=== PATIENT | male | born 1940 | race Caucasian/White ===

== ENCOUNTER 2017-06-23 21:33 | Observation (INO) | payer MEDICARE, BC ==
[2017-06-23] MEDS ORDERED: NS 0.9% 1000 ML* 1,000 ML IV ONE (23:46)
[2017-06-24 00:27] LABS: ABS Basophils 0.1 10^3/ul (0-0.2); ABS Eosinophils 0.3 10^3/ul (0-0.6); ABS Lymphocytes 1.9 10^3/ul (1.0-4.8); ABS Monocytes 0.8 10^3/ul (0-0.8); ABS Neutrophils 6.2 10^3/ul (1.5-7.7); ABS Nucleated RBC 0 10^3/ul; Eosinophil % 3.2 % (0-6); Hematocrit 38 % (42-52); Hemoglobin 13.2 g/dl (14.0-18.0); Lymphocyte % 20.3 % (25-47); Mean Corpuscular HGB Conc 35 g/dl (31-36); Mean Corpuscular Hemoglobin 34 pg (27-31); Mean Corpuscular Volume 98 fL (80-94); Mean Platelet Volume 9 um3 (7.4-10.4); Nucleated Red Blood Cells % 0; Platelet Count 200 10^3/ul (150-450); Red Blood Count 3.88 10^6/ul (4.0-5.4); Red Cell Distribution Width 13 % (10.5-15); White Blood Count 9.3 10^3/ul (3.5-10.8)
[2017-06-24 00:29] LABS: EGFR Non-African American 74.4 (>60)
[2017-06-24 00:43] LABS: INR 0.93 (0.77-1.02)
[2017-06-24] MEDS ORDERED: Acetaminophen TAB* 325 MG PO PRN (00:51)
[2017-06-24] MEDS ORDERED: CMCS: Melatonin (NF) 3 MG TAB PO PRN (00:52)
[2017-06-24] MEDS ORDERED: Ondansetron INJ* 2 MG/ML VIAL IV PRN (00:52)
[2017-06-24] MEDS ORDERED: NS 0.9% 1000 ML* 1,000 ML IV SCH (01:00)
--- NOTE | 2017-06-24 01:28 | ED ---
Robby James Nikita, scribed for Yanci Armenta MD on 06/23/17 at 2312 . GI/ HPI - HPI Summary HPI Summary: This patient is a 76 year old M presenting to ED with a chief complaint of rectal bleeding since 1600 today. The CC is described as a small amount of blood , and red and black clots with and without bowel movement. The patient rates the pain 0/10 in severity. Symptoms aggravated by nothing. Symptoms alleviated by nothing. Patient reports dizziness and abdominal pain (2 days ago, resolved after bowel movement). Patient denies LOC. Pt has taken 2 Ibuprofen today. PMHx of GI bleed (10 years ago). - History of Current Complaint Chief Complaint: EDGIBleed Time Seen by Provider: 06/23/17 23:08 Stated Complaint: RECTAL BLEED Hx Obtained From: Patient Onset/Duration: Started Hours Ago Timing: Intermittent Current Severity: None Vaginal Bleeding Description: Clots - black and red Pain Intensity: 0 Associated Signs and Symptoms: Positive: Other: - Patient reports dizziness and abdominal pain (2 days ago, resolved after bowel movement). Patient denies LOC. - Allergy/Home Medications Allergies/Adverse Reactions: Allergies Allergy/AdvReac Type Severity Reaction Status Date / Time No Known Allergies Allergy Verified 06/23/17 21:43 PMH/Surg Hx/FS Hx/Imm Hx Cardiovascular History: Reports: Hx Hypertension GI History: Reports: Hx Diverticulosis, Hx Gastrointestinal Bleed, Other GI Disorders - hemorrhoids Musculoskeletal History: Reports: Hx Arthritis, Hx Rheumatoid Arthritis Sensory History: Reports: Hx Contacts or Glasses, Hx Hearing Aid Opthamlomology History: Reports: Hx Contacts or Glasses - Surgical History Surgery Procedure, Year, and Place: bilateral arthroscopic surgery to bilateral knees Infectious Disease History: No Infectious Disease History: Reports: Hx Clostridium Difficile Denies: Traveled Outside the [place] in Last 30 Days - Family History Known Family History: Positive: Cardiac Disease, Diabetes, Other Family History: colon CA - Social History Alcohol Use: None Alcohol Amount: 2-5 drinks daily Substance Use Type: Reports: None Smoking Status (MU): Never Smoked Tobacco Review of Systems Positive: Abdominal Pain - resolved after BM, Other - rectal bleeding at 1600 today (small amount) Neurological: Other - dizziness; denies LOC All Other Systems Reviewed And Are Negative: Yes Physical Exam - Summary Physical Exam Summary: VITAL SIGNS: Reviewed. GENERAL: ~Patient is a well-developed and nourished MALE who is lying comfortable in the stretcher. Patient is not in any acute respiratory distress. HEAD AND FACE: No signs of trauma. No ecchymosis, hematomas or skull depressions. No sinus tenderness. EYES: PERRLA, EOMI x 2, No injected conjunctiva, no nystagmus. EARS: Hearing grossly intact. Ear canals and tympanic membranes are within normal limits. MOUTH: Oropharynx within normal limits. NECK: Supple, trachea is midline, no adenopathy, no JVD, no carotid bruit, no c- spine tenderness, neck with full ROM. CHEST: Symmetric, no tenderness at palpation LUNGS: Clear to auscultation bilaterally. No wheezing or crackles. CVS: Regular rate and rhythm, S1 and S2 present, no murmurs or gallops appreciated. ABDOMEN: Soft, non-tender. No signs of distention. No rebound no guarding, and no masses palpated. Bowel sounds are normal. EXTREMITIES: FROM in all major joints, no edema, no cyanosis or clubbing. NEURO: Alert and oriented x 3. No acute neurological deficits. Speech is normal and follows commands. SKIN: Dry and warm Rectal exam: Maroon colored blood on the finger on rectal exam; No active bleeding Triage Information Reviewed: Yes Vital Signs On Initial Exam: Initial Vitals Temp Pulse Resp BP Pulse Ox 97.9 F 83 16 186/106 97 06/23/17 21:39 06/23/17 21:39 06/23/17 21:39 06/23/17 21:39 06/23/17 21:39 Vital Signs Reviewed: Yes Diagnostics - Vital Signs Vital Signs Temp Pulse Resp BP Pulse Ox 06/23/17 21:39 97.9 F 83 16 186/106 97 - Laboratory Result Diagrams: 06/24/17 00:04 06/24/17 00:04 Lab Statement: Any lab studies that have been ordered have been reviewed, and results considered in the medical decision making process. - EKG 2351 Cardiac Rate: NL EKG Rhythm: Sinus Rhythm - 69 bpm EKG Interpretation: non-specific T wave changes in the inferior leads GIGU Course/Dx - Course Assessment/Plan: This patient is a 76 year old M presenting to ED with a chief complaint of rectal bleeding since 1600 today. The CC is described as a small amount of blood, and red and black clots with and without bowel movement. Pt is hemodynamically stable. Discussed pt with Dr. Santos at 0048 who accepts pt for admission. Pt will be admitted. Pt is agreeable with this plan. - Diagnoses Differential Diagnoses - Male: Other - lower GI bleed Provider Diagnoses: Lower GI bleed - Physician Notifications Discussed Care Of Patient With: Jroge Santos Time Discussed With Above Provider: 00:48 Instructed by Provider To: Other - Discussed about pt with Dr. Santos who accepts pt for admission. Discharge - Discharge Plan Condition: Stable Disposition: ADMITTED TO [facility] The documentation as recorded by the Robby reich Nikita accurately reflects the service I personally performed and the decisions made by me, Yanci Armenta MD.
--- NOTE | 2017-06-24 01:58 | HP ---
H&P (Free Text) History and Physical: PCP: Joy Ramirez MD Date/Time: 06/24/2017 0045 CC: blood per rectum HPI: Mr Barajas is a 76YO male HX lower GI bleed, diverticulosis, & RA who around 1600 yesterday passed gas and felt a 'trickle' in his underpants which turned out to be bright red blood. He had 3 bloody bowel movements at home and decided to come in for evaluation. While in ED had 5 more morenita bloody movements and 2 more since arriving to the floor. He denies F/C, sweats, abdominal pain, chest pain, SOB, palpitations, generalized weakness, or other issues. While he reports some dizziness prior to onset, there has been none associated. Last colonoscopy was 2008. PMedHx rheumatoid arthritis C difficile colitis lower GI bleed HTN HLD [place]'s disease BPH diverticulosis hard of hearing Medications Nursing to reconcile. Allergies No Known Allergies Allergy (Verified 06/23/17 21:43) PSurgHx tonsillectomy plastic surgery to R ear R knee arthroscopy SocHx: no tobacco, 1-2 alcoholic drinks daily, no recreational drugs; lives with his ; FamHx: positive for COPD, CAD, DM, & colon CA ROS: as above, otherwise reviewed and all were negative vitals: Vital Signs Temp 36.7 C 06/24/17 03:37 Pulse 59 06/24/17 03:37 Resp 18 06/24/17 03:37 BP 155/82 06/24/17 03:37 Pulse Ox 96 06/24/17 03:37 Intake & Output 06/23/17 06/23/17 06/24/17 11:59 23:59 11:59 Intake Total 1000 Balance 1000 Weight 90.718 kg 91.898 kg Intake: IV Fluids 1000 Constitutional: NAD, normally developed, overweight elderly white male HEENM: atraumatic; sclera/conjunctiva: anicteric/clear; hearing: markedly hard- of-hearing, wears aides AU; oropharynx: clear, mucosa moist Neck: soft tissue: non-tender; thyroid: normal Pulmonary: clear to auscultation bilaterally, good aeration, no accessory muscle use CV: RR/RR, normal S1S2, no carotid bruit, no jugular venous distention, 2+ B DP/ PT, no edema Abdominal: soft, non-distended, non-tender, no rebound/guarding/rigidity, normoactive bowel sounds, no hepatosplenomegaly or masses, no costovertebral angle tenderness Musculoskeletal: general: grossly intact; gait: stable Integumental: normal appearance and texture of exposed skin Psychiatric orientation: AA&O to PPS affect: calm mood: cooperative eye contact: good content: reliable responses: timely insight: good Testing: Lab Results 06/24/17 06/24/17 06/24/17 Range/Units 00:04 00:04 00:04 WBC 9.3 (3.5-10.8) 10^3/ul RBC 3.88 L (4.0-5.4) 10^6/ul Hgb 13.2 L (14.0-18.0) g/dl Hct 38 L (42-52) % MCV 98 H (80-94) fL MCH 34 H (27-31) pg MCHC 35 (31-36) g/dl RDW 13 (10.5-15) % Plt Count 200 (150-450) 10^3/ul MPV 9 (7.4-10.4) um3 Neut % (Auto) 66.7 (38-83) % Lymph % (Auto) 20.3 L (25-47) % [place] % (Auto) 8.7 (1-9) % Eos % (Auto) 3.2 (0-6) % Baso % (Auto) 1.1 (0-2) % Absolute Neuts (auto) 6.2 (1.5-7.7) 10^3/ul Absolute Lymphs (auto) 1.9 (1.0-4.8) 10^3/ul Absolute Monos (auto) 0.8 (0-0.8) 10^3/ul Absolute Eos (auto) 0.3 (0-0.6) 10^3/ul Absolute Basos (auto) 0.1 (0-0.2) 10^3/ul Absolute Nucleated RBC 0 10^3/ul Nucleated RBC % 0 INR (Anticoag Therapy) 0.93 (0.77-1.02) APTT 31.8 (26.0-36.3) seconds Sodium 138 (133-145) mmol/L Potassium 4.4 (3.5-5.0) mmol/L Chloride 107 (101-111) mmol/L Carbon Dioxide 25 (22-32) mmol/L Anion Gap 6 (2-11) mmol/L BUN 19 (6-24) mg/dL Creatinine 0.98 (0.67-1.17) mg/dL Est GFR ( Amer) 95.6 (>60) Est GFR (Non-Af Amer) 74.4 (>60) BUN/Creatinine Ratio 19.4 (8-20) Glucose 109 H (70-100) mg/dL Calcium 9.2 (8.6-10.3) mg/dL Total Bilirubin 0.60 (0.2-1.0) mg/dL AST 19 (13-39) U/L ALT 15 (7-52) U/L Alkaline Phosphatase 49 (34-104) U/L Total Protein 6.5 (6.4-8.9) g/dL Albumin 3.9 (3.2-5.2) g/dL Globulin 2.6 (2-4) g/dL Albumin/Globulin Ratio 1.5 (1-3) Blood Type Antibody Screen 06/24/17 Range/Units 00:04 WBC (3.5-10.8) 10^3/ul RBC (4.0-5.4) 10^6/ul Hgb (14.0-18.0) g/dl Hct (42-52) % MCV (80-94) fL MCH (27-31) pg MCHC (31-36) g/dl RDW (10.5-15) % Plt Count (150-450) 10^3/ul MPV (7.4-10.4) um3 Neut % (Auto) (38-83) % Lymph % (Auto) (25-47) % [place] % (Auto) (1-9) % Eos % (Auto) (0-6) % Baso % (Auto) (0-2) % Absolute Neuts (auto) (1.5-7.7) 10^3/ul Absolute Lymphs (auto) (1.0-4.8) 10^3/ul Absolute Monos (auto) (0-0.8) 10^3/ul Absolute Eos (auto) (0-0.6) 10^3/ul Absolute Basos (auto) (0-0.2) 10^3/ul Absolute Nucleated RBC 10^3/ul Nucleated RBC % INR (Anticoag Therapy) (0.77-1.02) APTT (26.0-36.3) seconds Sodium (133-145) mmol/L Potassium (3.5-5.0) mmol/L Chloride (101-111) mmol/L Carbon Dioxide (22-32) mmol/L Anion Gap (2-11) mmol/L BUN (6-24) mg/dL Creatinine (0.67-1.17) mg/dL Est GFR ( Amer) (>60) Est GFR (Non-Af Amer) (>60) BUN/Creatinine Ratio (8-20) Glucose (70-100) mg/dL Calcium (8.6-10.3) mg/dL Total Bilirubin (0.2-1.0) mg/dL AST (13-39) U/L ALT (7-52) U/L Alkaline Phosphatase (34-104) U/L Total Protein (6.4-8.9) g/dL Albumin (3.2-5.2) g/dL Globulin (2-4) g/dL Albumin/Globulin Ratio (1-3) Blood Type A Positive Antibody Screen Negative ECG, personally reviewed: NSR rate 69, no ischemia Impression: 76M HX diverticulosis w/ lower GI bleed presents with painless bright red blood per rectum DIAGNOSIS & PLAN Primary lower GI bleed, suspect diverticular : type & screen : IVFs : clear liquid diet : trend H&H : consider GI consult in AM : supportive care Secondary rheumatoid arthritis : review meds once reconciled C difficile colitis : review meds once reconciled HTN : review meds once reconciled HLD : review meds once reconciled BPH : review meds once reconciled markedly hard of hearing : uses aides AU Admission Rational: inpatient for lower GI bleed not anticipated to be adequately resolved to allow for discharge w/i 48h DVTp: SCDs, no anticoagulation in current setting Code Status: full HCP:
[2017-06-24] MEDS: Omeprazole CAP* 20 MG PO SCH (06:03)
[2017-06-24 06:21] LABS: Hematocrit 32 % (42-52); Hemoglobin 11.1 g/dl (14.0-18.0); Mean Corpuscular HGB Conc 35 g/dl (31-36); Mean Corpuscular Hemoglobin 34 pg (27-31); Mean Corpuscular Volume 99 fL (80-94); Mean Platelet Volume 9 um3 (7.4-10.4); Platelet Count 167 10^3/ul (150-450); Red Blood Count 3.25 10^6/ul (4.0-5.4); Red Cell Distribution Width 13 % (10.5-15); White Blood Count 7.6 10^3/ul (3.5-10.8)
[2017-06-24 11:41] LABS: Hematocrit 31 % (42-52); Hemoglobin 10.4 g/dl (14.0-18.0)
[2017-06-24 14:23] LABS: Hematocrit 30 % (42-52); Hemoglobin 10.3 g/dl (14.0-18.0)
[2017-06-24] MEDS ORDERED: PEG 3000 GI LAVAGE* 1 GALLON PO ONE (18:00)
--- NOTE | 2017-06-24 19:20 | PN ---
Subjective Date of Service: 06/24/17 Interval History: Last Bloody BM at 8am when seen at 10am this morning no pain In good spirits endorses LH in bed, no worse with walking to bathroom Objective Active Medications: Acetaminophen (Tylenol Tab*) 650 mg PO Q6H PRN PRN Reason: FEVER/PAIN Sodium Chloride (Ns 0.9% 1000 Ml*) 1,000 mls @ 125 mls/hr IV PER RATE [facility] Last Admin: 06/24/17 12:28 Dose: 125 mls/hr Melatonin (Melatonin (Nf)) 3 mg PO BEDTIME PRN; Protocol PRN Reason: Sleep Omeprazole (Prilosec Cap*) 20 mg PO DAILY@0600 [facility] Last Admin: 06/24/17 06:03 Dose: 20 mg Ondansetron HCl (Zofran Inj*) 4 mg IV Q6H PRN PRN Reason: NAUSEA Vital Signs - 8 hr 06/24/17 15:40 Temperature 98.5 F Pulse Rate 65 Respiratory 16 Rate Blood Pressure 151/86 (mmHg) O2 Sat by Pulse 98 Oximetry Oxygen Devices in Use Now: None Appearance: NAD Eyes: No Scleral Icterus, PERRLA Ears/Nose/Mouth/Throat: NL Teeth, Lips, Gums, Clear Oropharnyx, Mucous Membranes Moist Neck: NL Appearance and Movements; NL JVP, Trachea Midline Respiratory: Symmetrical Chest Expansion and Respiratory Effort, Clear to Auscultation Cardiovascular: NL Sounds; No Murmurs; No JVD, RRR Abdominal: NL Sounds; No Tenderness; No Distention, No Hepatosplenomegaly Extremities: No Edema Skin: No Rash or Ulcers Neurological: Alert and Oriented x 3, - - cn2-12 intact Result Diagrams: 06/24/17 14:04 06/24/17 00:04 Assess/Plan/Problems-Billing Assessment: 76 yo M p/w painless LGIB - Patient Problems (1) Lower GI bleed Comment: appreciate GI consult Suspect diverticular trend H/H Plan cscope tomorrow if patient amendable (2) Hypertension Comment: no home meds (3) DVT prophylaxis Comment: SCDs in setting of LGIB
[2017-06-24 20:20] LABS: Hematocrit 33 % (42-52); Hemoglobin 11.3 g/dl (14.0-18.0)
--- NOTE | 2017-06-24 21:57 | CONS ---
GASTROENTEROLOGY CONSULTATION: DATE OF CONSULT: 06/24/17 HOSPITAL PROVIDER: Jorge Santos MD PRIMARY CARE PHYSICIAN: Rhina Ramirez MD REASON FOR CONSULTATION: Rectal bleeding. HISTORY OF PRESENT ILLNESS: Mr. Barajas is a 76-year-old male with a history of rheumatoid arthritis, diverticulosis with history of diverticular bleeding, who presented to [facility] with complaints of bright red blood per rectum that began at 4 p.m. yesterday evening. He describes his rectal bleeding as bright red that was initially occurring every hour and at times filling up almost half a cup per hour. In the emergency room, he had 5 morenita bloody bowel movements and upon arrival to the telemetry floor he had 2 more. His last episode was around noon today and had been decreasing in frequency. He denies any abdominal pain, nausea, vomiting, melena, dysphagia. He feels slightly lightheaded; however, is able to ambulate without difficulty. Denies chest pain, shortness of breath, palpitations. He admits to a prior history of diverticular bleeding that occurred back in January of 2014. A colonoscopy was performed at that time by Dr. Carpenter revealing robles-diverticulosis and it was presumed at that time that he had a resolved diverticular bleed. He denies family history of colon cancer. PAST MEDICAL HISTORY: Rheumatoid arthritis, hypertension, hyperlipidemia, Ede's disease, BPH, hard of hearing, history of C. difficile colitis, history of diverticular bleeding. PAST SURGICAL HISTORY: Tonsillectomy, plastic surgery to the right ear, colonoscopy in 2013, and right knee arthroscopy. HOSPITAL MEDICATIONS: 1. Tylenol p.r.n. 2. Melatonin p.r.n. 3. Omeprazole 20 mg daily. 4. Zofran p.r.n. ALLERGIES: No known drug allergies. FAMILY HISTORY: Significant for colon cancer, COPD, coronary artery disease, and diabetes. SOCIAL HISTORY: Denies tobacco. Uses 1 to 2 alcoholic drinks daily. No recreational drugs. Lives with his . REVIEW OF SYSTEMS: On a 14-point scale has been reviewed and all pertinent positives and negatives have been noted above in the HPI, otherwise are negative. PHYSICAL EXAM: Current Vital Signs: Temperature 98.5, pulse 65, respirations 16, oxygenation on room air 98%, blood pressure 151/86. Generally, the patient is alert and oriented x3, in no acute distress, slightly hard of hearing. HEENT : Moist mucous membranes. Neck is supple. Cardiovascular Exam: Regular rate and rhythm. Pulmonary Exam: Clear to auscultation bilaterally. Abdominal Exam : Soft, nontender, nondistended. No rebound, guarding, or rigidity. No surgical scars noted. Extremities: No clubbing, cyanosis, or edema. Neurological Exam: No gross focal deficits are appreciated. DIAGNOSTIC STUDIES/LAB DATA: WBCs 7.6, hemoglobin 11.1, hematocrit 32, platelets 167. INR 0.93, PTT 31.8. Sodium 138, potassium 4.4, chloride 107, CO2 25, anion gap 6, BUN 19, creatinine 0.98, glucose 109, calcium 9.2. Total bilirubin 0.60, AST 19, ALT 15, alkaline phosphatase 49. Total protein 6.5, albumin 3.9, globulin 2.6. ASSESSMENT AND PLAN: Mr. Barajas is a pleasant 76-year-old male with a history of hypertension, hyperlipidemia, diverticulosis with prior history of bleeding and rheumatoid arthritis on methotrexate and remicade who presented to [facility] ER with complaints of bright red blood per rectum. He is currently hemodynamically stable. His last colonoscopy was performed in [address] Carpenter, which revealed severe robles-diverticulosis and was otherwise was unremarkable. He presents today with similar symptoms as he did with his prior diverticular bleed in 2013. Gastroenterology was consulted for further evaluation. 1. Rectal bleeding ~Appears to be diverticular in nature which seems to be resolving. His last colonoscopy was in January of 2014 revealing severe robles-diverticulosis. He has also had a diverticular bleed about 10 years ago. I would recommend for the patient to have a repeat colonoscopy given his optimal medical condition to rule out any colonic neoplasms and isolate possible area of recent diverticular bleed and tattoo it to identify for possible future bleeds as he has severe robles- diverticulosis. Patient is agreeable to this. We will plan for the patient to receive his colonoscopy preparation tonight. He is already on clear liquids. He should remain n.p.o. after midnight. Currently, he is scheduled to have his colonoscopy early tomorrow morning. 2. Acute blood loss anemia ~Likely from lower GI bleeding. ~Monitor H and H every 6 hours for now. ~If the patient's hemoglobin drops less than 7, we will transfuse packed red blood cells. ~Discussed with Dr. Romero and RN. Thank you, Dr. Romero, for allowing us to participate in the care of your patient. If you should have any further questions or concerns, please do not hesitate to contact us. [id number]/[facility] #: [id number] JUDE
[2017-06-25] MEDS: Omeprazole CAP* 20 MG PO SCH (06:06)
[2017-06-25 06:09] LABS: ABS Basophils 0 10^3/ul (0-0.2); ABS Eosinophils 0.3 10^3/ul (0-0.6); ABS Lymphocytes 1.3 10^3/ul (1.0-4.8); ABS Monocytes 0.6 10^3/ul (0-0.8); ABS Neutrophils 3.7 10^3/ul (1.5-7.7); ABS Nucleated RBC 0 10^3/ul; Eosinophil % 4.7 % (0-6); Hematocrit 27 % (42-52); Hemoglobin 9.6 g/dl (14.0-18.0); Lymphocyte % 21.5 % (25-47); Mean Corpuscular HGB Conc 35 g/dl (31-36); Mean Corpuscular Hemoglobin 34 pg (27-31); Mean Corpuscular Volume 98 fL (80-94); Mean Platelet Volume 9 um3 (7.4-10.4); Nucleated Red Blood Cells % 0; Platelet Count 152 10^3/ul (150-450); Red Blood Count 2.78 10^6/ul (4.0-5.4); Red Cell Distribution Width 13 % (10.5-15)
[2017-06-25 06:23] LABS: EGFR Non-African American 85.3 (>60)
[2017-06-25] MEDS ORDERED: Midazolam* 1 MG/ML 10 ML VIAL (10 MG) ONE (07:15)
[2017-06-25] MEDS ORDERED: fentaNYL* 50 MCG/ML 2 ML VIAL (100 MCG VIAL) ONE (07:15)
[2017-06-25 12:12] VITALS: BP 133/74
--- NOTE | 2017-06-25 12:52 | PRO ---
CC: Dr. Adam; Amnada Tobar DO GASTROENTEROLOGY OPERATIVE REPORT: DATE OF PROCEDURE: 06/25/17 OPERATIVE PROCEDURE: Colonoscopy to terminal ileum. SURGEON: Amanda Tobar DO ANESTHESIA: 1. Midazolam 5 mg IV. 2. Fentanyl 75 mcg IV. HISTORY OF PRESENT ILLNESS: Mr. Barajas is a very pleasant 76-year-old gentleman , who presented to [facility] with bright red blood per rectum. He has a previous history of significant diverticular bleeding from robles- diverticulosis. He also has a family history of colon cancer. His father was diagnosed at approximately 65 years of age. His last colonoscopy was in 2013, performed by Dr. Carpenter, which revealed robles-diverticulosis and recent diverticular bleeding. PREOPERATIVE DIAGNOSIS: 1. Rectal bleeding. POSTOPERATIVE DIAGNOSES: 1. Several large-mouthed robles-diverticulosis throughout the ascending colon, transverse colon, descending colon, and sigmoid colon. 2. Recent gastrointestinal bleeding with old blood present throughout the entire colon. 3. No active bleeding throughout the colon. 4. No bleeding seen in terminal ileum. 5. Fair colonoscopy preparation. RECOMMENDATIONS: 1. We can resume the patient's cardiac diet. 2. The patient has had 3 life-threatening diverticular bleeds. Would recommend if the patient presents to the emergency room with similar episodes of rectal bleeding to send the patient directly to Interventional Radiology for possible embolization. Also, the patient may need a colectomy in the future if frequent episodes of diverticular bleeding persists. D/w Dr. Romero. DESCRIPTION OF PROCEDURE: Colonoscopy was explained in detail to the patient. The risks, benefits, complications, alternatives, and possibilities of missed lesions were explained and understood. Complications included, but were not limited to, reaction to anesthesia, aspiration, increased risk of bleeding, and perforation. All questions were answered. The patient demonstrated understanding of the conversation, informed consent was obtained. Next, the patient was brought to the endoscopy suite, placed in the left lateral recumbent position, where blood pressure, cardiac, and oxygen monitors were applied. The patient was found to be a fit candidate for moderate anesthesia. After adequate IV sedation was achieved, a digital rectal exam was performed, which revealed normal sphincter tone. No palpable masses were appreciated. Next, a standard adult Olympus colonoscope was inserted through the rectum, maneuvered all the way to the cecal base, where the ileocecal valve and appendiceal orifice were identified and photographed. Next, the terminal ileum was normal appearing. No evidence of bleeding was identified. Subsequently, the colonoscope was withdrawn in a fashion that allowed adequate visualization of the bowel. The patient's preparation was fair overall. Aggressive irrigation and suctioning was performed in order to adequately visualize the mucosa given the significant amount of old blood present throughout the colon. The cecum appeared normal. Entry into the ascending colon , transverse colon, descending colon, and sigmoid colon revealed old red blood. There were several severe large-mouthed diverticula throughout these areas of the colon. The bleeding diverticula was unable to be identified as it appeared the bleeding had subsided. Entry into the rectum revealed normal mucosa. On retroflexion, there were no gross abnormalities. Air was then removed from the patient. Colonoscope was removed from the patient. The patient tolerated the procedure well. There were no immediate complications. After a period of observation, the patient was transferred back to the telemetry floor for further care. Thank you, Dr. Romero, for allowing us to participate in the care of your patient. If you should have any further questions or concerns, please do not hesitate to contact us. [id number]/[facility] #: [id number] JUDE
--- NOTE | 2017-06-25 22:37 | DS ---
CC: Dr. Ramirez * DISCHARGE SUMMARY: DATE OF ADMISSION: 06/24/17 DATE OF DISCHARGE: 06/25/17 PRIMARY CARE PROVIDER: Dr. Ramirez. PRIMARY DIAGNOSIS: Diverticular bleed. SECONDARY DIAGNOSES: Include: 1. Acute blood loss anemia. 2. Hypertension. 3. Hyperlipidemia. 4. Severe diverticulosis. 5. History of GI bleed. PROCEDURES PERFORMED DURING HOSPITAL STAY: Colonoscopy performed by Dr. Amanda Tobar with evidence for old blood. No active bleeding and severe diverticulosis. No evidence for malignancy. PERTINENT LABORATORY DATA: Hemoglobin on presentation 13.2, hemoglobin on discharge 9.6. At followup, please; repeat CBC in 1 week from today or at most 1 week from today, 07/02/17. HISTORY OF PRESENT ILLNESS AND HOSPITAL COURSE: This is a 76-year-old man with past medical history of known diverticulosis and lower GI bleed, thought to be secondary to diverticulosis who presented to the hospital with bright red blood per rectum associated with clots. Hemoglobin and hematocrit were trended. Active bleeding had appeared to stop and he went for a colonoscopy on 06/25/17 with evidence of old blood, but no active bleeding still evident. Severe diverticulosis. A diverticular bleed was suspected as the cause of his lower GI bleed and acute blood loss anemia. Discussed the results with the patient and . Also discussed the case with Dr. Tobar, who advised as if represents in the future with lower GI bleed, may benefit from targeted embolization or discussion for colectomy. I discussed these recommendations and findings with the patient and , who acknowledged understanding. Only changes to medications include addition of iron supplementation in the setting of acute blood loss anemia for the next 3 months. There were no complications during the course of this hospital stay. The patient received no blood transfusions. Reasons to return to the hospital included, but not limited to recurrent or worsening symptoms including recurrent bleeding, chest pain, shortness of breath , nausea, vomiting, lightheadedness, or loss of consciousness, near loss of consciousness, inability to obtain or tolerate medications discussed with the patient and his . They acknowledged understanding. TIME SPENT: Greater than 45 minutes were spent in the discharge of this patient , greater than half was spent [id number] with the patient. [id number]/[facility] #: [id number] [facility]
== END 2017-06-25 13:42 | disposition home or self-care (01) ==
LOC: ED 21:33 → MEDTELE 06-24 00:49 → INTOOBSV 06-24 00:49 → UNDODISIN 06-25 13:42
PROVIDERS: ADMIT Hospitalist; ATTEND Internal Medicine
PROC: 0DJD8ZZ Inspection of Lower Intestinal Tract, Via Natural or Artificial Opening Endoscopic (ICD-10-PCS; principal; 2017-06-25)
DX: K57.31 Diverticulosis of large intestine without perforation or abscess with bleeding (principal); M06.9 Rheumatoid arthritis, unspecified; I10 Essential (primary) hypertension; E78.5 Hyperlipidemia, unspecified; N40.0 Benign prostatic hyperplasia without lower urinary tract symptoms; Z80.0 Family history of malignant neoplasm of digestive organs; L11.1 Transient acantholytic dermatosis [Grover]
CPT/HCPCS: 36415; 80048; 80053; 85014; 85018; 85025; 85027; 85610; 85730; 86850; 86900; 86901; 93005; 99156; 99157; 99284; A9270-GY; G0378; J2250; J3010

== ENCOUNTER 2017-06-28 06:36 | Inpatient (IN) | payer MEDICARE, BC ==
[2017-06-28] MEDS ORDERED: NS 0.9% 1000 ML* 1,000 ML IV ONE (07:30)
[2017-06-28 07:50] LABS: ABS Basophils 0 10^3/ul (0-0.2); ABS Eosinophils 0.1 10^3/ul (0-0.6); ABS Lymphocytes 0.9 10^3/ul (1.0-4.8); ABS Monocytes 0.6 10^3/ul (0-0.8); ABS Neutrophils 6.2 10^3/ul (1.5-7.7); ABS Nucleated RBC 0 10^3/ul; Eosinophil % 1.9 % (0-6); Hematocrit 23 % (42-52); Hemoglobin 7.9 g/dl (14.0-18.0); Lymphocyte % 10.9 % (25-47); Mean Corpuscular HGB Conc 35 g/dl (31-36); Mean Corpuscular Hemoglobin 35 pg (27-31); Mean Corpuscular Volume 100 fL (80-94); Mean Platelet Volume 9 um3 (7.4-10.4); Nucleated Red Blood Cells % 0.1; Platelet Count 184 10^3/ul (150-450); Red Blood Count 2.29 10^6/ul (4.0-5.4); Red Cell Distribution Width 13 % (10.5-15); White Blood Count 7.9 10^3/ul (3.5-10.8)
[2017-06-28 08:05] LABS: EGFR Non-African American 72.6 (>60)
[2017-06-28 08:10] LABS: INR 0.91 (0.77-1.02)
--- NOTE | 2017-06-28 10:50 | RAD ---
HISTORY: Lower GI bleed, intermittent rectal bleeding COMPARISONS: None relevant RADIOPHARMACEUTICAL: Technetium 99m, 26.9 mCi at 9:26 AM on June 28, 2017 TECHNIQUE: The scintigraphic bleeding scan was performed with tagged red cells. Cine and planar images were obtained of the abdomen over the course of 60 minutes. FINDINGS: Normal uptake is noted in the liver, bladder, and vasculature. There is no appreciable focal uptake to suggest a focus of active bleeding. IMPRESSION: NO FOCAL UPTAKE TO SUGGEST ACTIVE BLEEDING CPT II Codes: [id number]
[2017-06-28 10:54] LABS: Urine Appearance Clear; Urine Blood Negative (Negative); Urine Color Colorless; Urine Ketones Negative (Negative); Urine Protein Negative (Negative); Urine Specific Gravity 1.003 (1.010-1.030); Urine Urobilinogen Negative (Negative)
[2017-06-28] MEDS ORDERED: NS 0.9% 1000 ML* 1,000 ML IV SCH (13:00)
[2017-06-28 14:47] LABS: Hematocrit 21 % (42-52); Hemoglobin 7.3 g/dl (14.0-18.0)
--- NOTE | 2017-06-28 17:09 | ED ---
Scott James Angela, scribed for Aaron Dan MD on 06/28/17 at 0724 . GI/ HPI - HPI Summary HPI Summary: This pt is a 76 y/o male, accompanied by his , presenting to [facility] for rectal bleeding, this episode began this morning at 04:30 today. reports the pt has had these episodes before intermittently and the episode prior to today's began 5 days ago in the afternoon. Pt was fine all weekend long (2 days ago and yesterday) until this morning. Pt notes he has gas in his abd, described as "rumbling," but denies any pain. He describes his stool with bright red blood and coffee grounds. He reports associated symptom of lightheadedness. Pt states he had a colonoscopy 3 days ago, on Wednesday, done by Dr. Tobar. notes the colonoscopy showed increased pouches from past colonoscopies. - History of Current Complaint Chief Complaint: EDGIBleed Stated Complaint: RECTAL BLEEDING Hx Obtained From: Patient Onset/Duration: Started Hours Ago, Still Present Timing: Lasting Hours Vaginal Bleeding Description: Bright Red Pain Intensity: 0 Associated Signs and Symptoms: Positive: Bright Red Blood w/Stool, Blood w/Stool , Lightheadedness - Additional Pertinent History Primary Care Physician: [id number] - Allergy/Home Medications Allergies/Adverse Reactions: Allergies Allergy/AdvReac Type Severity Reaction Status Date / Time No Known Allergies Allergy Verified 06/23/17 21:43 Home Medications: Home Medications Ferrous Sulfate TAB* 325 mg PO BID 06/28/17 [History Confirmed 06/28/17] PMH/Surg Hx/FS Hx/Imm Hx Endocrine/Hematology History: Denies: Hx Blood Disorders, Hx Systemic Lupus Erythematosus, Hx Sickle Cell Disease, Hx Thyroid Disease Cardiovascular History: Reports: Hx Hypertension Denies: Hx Aneurysm, Hx Angina, Hx Angioplasty, Hx Cardiac Arrest, Hx Cardiomegaly, Hx Congenital Heart Disease, Hx Deep Vein Thrombosis, Hx Pacemaker /ICD, Hx Syncope, Hx Valvular Heart Disease Respiratory History: Denies: Hx Asthma, Hx Chronic Bronchitis, Hx Chronic Obstructive Pulmonary Disease (COPD), Hx Cystic Fibrosis, Hx Lung Cancer, Hx Pulmonary Embolism, Hx Sleep Apnea GI History: Reports: Hx Diverticulosis, Hx Gastrointestinal Bleed, Other GI Disorders - hemorrhoids History: Denies: Hx Benign Prostatic Hyperplasia, Hx Chronic Renal Failure, Hx Kidney Stones Musculoskeletal History: Reports: Hx Arthritis, Hx Rheumatoid Arthritis, Other Musculoskeletal History - knee pain Sensory History: Reports: Hx Contacts or Glasses, Hx Hearing Aid, Hx Hearing Problem Denies: Hx Cataracts, Hx Eye Injury, Hx Glaucoma, Hx Legally Blind, Hx Vision Problem Opthamlomology History: Reports: Hx Contacts or Glasses Denies: Hx Cataracts, Hx Eye Injury, Hx Glaucoma, Hx Legally Blind, Hx Vision Problem Neurological History: Denies: Hx Dementia, Hx Developmental Delay, Hx Headaches, Hx Migraine, Hx Nerve Disease, Hx Seizures, Hx Transient Ischemic Attacks (TIA) Psychiatric History: Denies: Hx Anxiety, Hx Autism, Hx Depression, Hx Panic Disorder, Hx Community Mental Health Tx, Hx Schizophrenia, Hx Suicide Attempt, Other Psychiatric Issues/Disorders - Surgical History Surgery Procedure, Year, and Place: bilateral arthroscopic surgery to bilateral knees Infectious Disease History: No Infectious Disease History: Reports: Hx Clostridium Difficile Denies: Hx Hepatitis, Hx of Known/Suspected MRSA, Hx Shingles, Hx Tuberculosis, History Other Infectious Disease, Traveled Outside the [place] in Last 30 Days - Family History Known Family History: Positive: Cardiac Disease, Diabetes, Other Family History: colon CA - Social History Alcohol Use: Daily Alcohol Amount: 2 cups Substance Use Type: Reports: None Smoking Status (MU): Never Smoked Tobacco Review of Systems Negative: Fever, Chills Gastrointestinal: Other - gas in abd, bloody stools Negative: Abdominal Pain Neurological: Other - lightheadedness All Other Systems Reviewed And Are Negative: Yes Physical Exam - Summary Physical Exam Summary: VITAL SIGNS: Reviewed. GENERAL: Patient is a well-developed and nourished male who is lying comfortable in the stretcher. Patient is not in any acute respiratory distress. HEAD AND FACE: No signs of trauma. No ecchymosis, hematomas or skull depressions. No sinus tenderness. EYES: PERRLA, EOMI x 2, No injected conjunctiva, no nystagmus. EARS: Hearing grossly intact. Ear canals and tympanic membranes are within normal limits. MOUTH: Oropharynx within normal limits. NECK: Supple, trachea is midline, no adenopathy, no JVD, no carotid bruit, no c- spine tenderness, neck with full ROM. CHEST: Symmetric, no tenderness at palpation LUNGS: Clear to auscultation bilaterally. No wheezing or crackles. CVS: Regular rate and rhythm, S1 and S2 present, no murmurs or gallops appreciated. ABDOMEN: Soft, non-tender. No signs of distention. No rebound no guarding, and no masses palpated. Bowel sounds are normal. Rectal Exam: tarry color stools EXTREMITIES: FROM in all major joints, no edema, no cyanosis or clubbing. NEURO: Alert and oriented x 3. No acute neurological deficits. Speech is normal and follows commands. SKIN: Dry and warm Triage Information Reviewed: Yes Vital Signs On Initial Exam: Initial Vitals Temp Pulse Resp BP Pulse Ox 98.3 F 69 16 141/77 94 06/28/17 06:36 06/28/17 06:36 06/28/17 06:36 06/28/17 06:36 06/28/17 06:36 Vital Signs Reviewed: Yes Diagnostics - Vital Signs Vital Signs Temp Pulse Resp BP Pulse Ox 06/28/17 07:14 89 98 06/28/17 07:13 147/66 06/28/17 06:58 72 21 94 06/28/17 06:45 70 21 94 06/28/17 06:44 130/68 06/28/17 06:36 98.3 F 69 16 141/77 94 - Laboratory Lab Results: Lab Results 06/28/17 06/28/17 06/28/17 Range/Units 07:41 07:41 07:41 WBC (3.5-10.8) 10^3/ul RBC (4.0-5.4) 10^6/ul Hgb (14.0-18.0) g/dl Hct (42-52) % MCV (80-94) fL MCH (27-31) pg MCHC (31-36) g/dl RDW (10.5-15) % Plt Count (150-450) 10^3/ul MPV (7.4-10.4) um3 Neut % (Auto) (38-83) % Lymph % (Auto) (25-47) % Braxton % (Auto) (1-9) % Eos % (Auto) (0-6) % Baso % (Auto) (0-2) % Absolute Neuts (auto) (1.5-7.7) 10^3/ul Absolute Lymphs (auto) (1.0-4.8) 10^3/ul Absolute Monos (auto) (0-0.8) 10^3/ul Absolute Eos (auto) (0-0.6) 10^3/ul Absolute Basos (auto) (0-0.2) 10^3/ul Absolute Nucleated RBC 10^3/ul Nucleated RBC % INR (Anticoag Therapy) 0.91 (0.77-1.02) APTT 30.7 (26.0-36.3) seconds Sodium 139 (133-145) mmol/L Potassium 4.0 (3.5-5.0) mmol/L Chloride 108 (101-111) mmol/L Carbon Dioxide 26 (22-32) mmol/L Anion Gap 5 (2-11) mmol/L BUN 19 (6-24) mg/dL Creatinine 1.00 (0.67-1.17) mg/dL Est GFR ( Amer) 93.4 (>60) Est GFR (Non-Af Amer) 72.6 (>60) BUN/Creatinine Ratio 19.0 (8-20) Glucose 108 H (70-100) mg/dL Calcium 8.9 (8.6-10.3) mg/dL Total Bilirubin 0.30 (0.2-1.0) mg/dL AST 21 (13-39) U/L ALT 16 (7-52) U/L Alkaline Phosphatase 42 (34-104) U/L Total Creatine Kinase 151 (10-223) U/L C-Reactive Protein 4.08 (< 5.00) mg/L B-Natriuretic Peptide 42 ( - 100) pg/mL Total Protein 5.8 L (6.4-8.9) g/dL Albumin 3.5 (3.2-5.2) g/dL Globulin 2.3 (2-4) g/dL Albumin/Globulin Ratio 1.5 (1-3) Lipase 27 (11.0-82.0) U/L Blood Type Antibody Screen Crossmatch 06/28/17 06/28/17 Range/Units 07:41 07:41 WBC 7.9 (3.5-10.8) 10^3/ul RBC 2.29 L (4.0-5.4) 10^6/ul Hgb 7.9 L (14.0-18.0) g/dl Hct 23 L (42-52) % MCV 100 H (80-94) fL MCH 35 H (27-31) pg MCHC 35 (31-36) g/dl RDW 13 (10.5-15) % Plt Count 184 (150-450) 10^3/ul MPV 9 (7.4-10.4) um3 Neut % (Auto) 78.7 (38-83) % Lymph % (Auto) 10.9 L (25-47) % Braxton % (Auto) 8.1 (1-9) % Eos % (Auto) 1.9 (0-6) % Baso % (Auto) 0.4 (0-2) % Absolute Neuts (auto) 6.2 (1.5-7.7) 10^3/ul Absolute Lymphs (auto) 0.9 L (1.0-4.8) 10^3/ul Absolute Monos (auto) 0.6 (0-0.8) 10^3/ul Absolute Eos (auto) 0.1 (0-0.6) 10^3/ul Absolute Basos (auto) 0 (0-0.2) 10^3/ul Absolute Nucleated RBC 0 10^3/ul Nucleated RBC % 0.1 INR (Anticoag Therapy) (0.77-1.02) APTT (26.0-36.3) seconds Sodium (133-145) mmol/L Potassium (3.5-5.0) mmol/L Chloride (101-111) mmol/L Carbon Dioxide (22-32) mmol/L Anion Gap (2-11) mmol/L BUN (6-24) mg/dL Creatinine (0.67-1.17) mg/dL Est GFR ( Amer) (>60) Est GFR (Non-Af Amer) (>60) BUN/Creatinine Ratio (8-20) Glucose (70-100) mg/dL Calcium (8.6-10.3) mg/dL Total Bilirubin (0.2-1.0) mg/dL AST (13-39) U/L ALT (7-52) U/L Alkaline Phosphatase (34-104) U/L Total Creatine Kinase (10-223) U/L C-Reactive Protein (< 5.00) mg/L B-Natriuretic Peptide ( - 100) pg/mL Total Protein (6.4-8.9) g/dL Albumin (3.2-5.2) g/dL Globulin (2-4) g/dL Albumin/Globulin Ratio (1-3) Lipase (11.0-82.0) U/L Blood Type A Positive Antibody Screen Negative Crossmatch See Detail Result Diagrams: 06/28/17 14:19 06/28/17 07:41 Lab Statement: Any lab studies that have been ordered have been reviewed, and results considered in the medical decision making process. - EKG 07:39 Cardiac Rate: NL EKG Rhythm: Sinus Rhythm - at 62 bpm EKG Interpretation: No ST elevation EKG Comparison: No Significant Change - similar to prior EKG done on 06/23/17. GIGU Course/Dx - Course Course Of Treatment: This pt is a 76 y/o male, accompanied by his , presenting to [facility] for rectal bleeding, this episode began this morning at 04: 30 today. reports the pt has had these episodes before intermittently and the episode prior to today's began 5 days ago in the afternoon. Pt was fine all weekend long (2 days ago and yesterday) until this morning. Pt notes he has gas in his abd, described as "rumbling," but denies any pain. He describes his stool with bright red blood and coffee grounds. He reports associated symptom of lightheadedness. Pt states he had a colonoscopy 3 days ago, on Wednesday, done by Dr. Tobar. notes the colonoscopy showed increased pouches from past colonoscopies. Test results within normal limits except for H and H of 7.9/23. Occult blood is positive for blood. In the ED course, initially the pt was placed on a monitor, 2 IV access were obtained and pt was given fluids. At this point I discussed pts case with Dr. Loya, from GI, who will consult with the pt. The pt does not require blood transfusion at this point, but we still sent a type and screen in case he needs one. I discussed the pts case with Dr. Etienne, hospitalist, who has agreed to admit the pt. Pt is hemodynamically stable, alert and oriented x3. - Diagnoses Differential Diagnoses - Male: Esophagitis/Gastritis, Gastroenteritis (Viral), Hemorrhoids, Other - GI bleed. Provider Diagnoses: GI bleed, Anemia - Physician Notifications Discussed Care Of Patient With: Aldo Loya Time Discussed With Above Provider: 08:23 Instructed by Provider To: Other - I discussed pt care with JAYSON Cazares, who will consult on the pt. He recommends admission. [08:29] I spoke with Dr. Etienne , hospitalist, who has agreed to admit the pt. Discharge - Discharge Plan Condition: Stable Disposition: ADMITTED TO [facility] The documentation as recorded by the Scott reich Angela accurately reflects the service I personally performed and the decisions made by , Aaron Dan MD.
[2017-06-28] MEDS: Ferrous Sulfate TAB* 325 MG PO SCH (19:44)
[2017-06-28 19:58] LABS: Hematocrit 21 % (42-52)
--- NOTE | 2017-06-28 21:11 | HP ---
CC: Mary Ramirez MD; Dr. Loya * HISTORY AND PHYSICAL: DATE OF ADMISSION: 06/28/17 PRIMARY CARE PROVIDER: Mary Ramirez MD ATTENDING PHYSICIAN WHILE IN THE HOSPITAL: Magno Etienne MD * (report dictated by Zachariah Mansfield NP). CHIEF COMPLAINT: Bright red blood per rectum. HISTORY OF PRESENT ILLNESS: Mr. Barajas is a 76-year-old male patient. He carries a history of rheumatoid arthritis. He also has history of C. diff. Recently, he has a history of hypertension and hyperlipidemia where he has lost weight and no longer is on medication. He also has a history of BPH, history of GI bleed. He has a history of diverticular bleed and he was actually just here and discharged 3 days ago. He had a colonoscopy, which ultimately showed severe diverticulosis, which the bleed was felt to be coming from and the patient was doing well initially throughout the weekend. He unfortunately though started having bright red blood per rectum, starting this morning. He had 2 episodes at home. He called 911 and he had another 3 episodes here in the ED. He has not had one since being up here on the floor, but he has been noticing that particularly when he stands up or if he changed position, he has been getting dizzy. He has been having dyspnea on exertion, which he has not experienced previously. His hemoglobin when he was discharged was 9.6 and now is 7.9. He was concerned because of bright red blood. He was bleeding again. He came into the ED. He denies any abdominal pain. Denies any chest pain. He does admit to having dyspnea on exertion and dizziness with exertion. Denies any syncopal type episodes, but there was concern because of the bleeding and came in, was evaluated. There was concern for recurrence of GI bleed and we were asked to evaluate for admission. PAST MEDICAL HISTORY: Significant for: 1. Rheumatoid arthritis. 2. History of C. diff. 3. Hypertension. 4. Hyperlipidemia. 5. BPH. 6. History of GI bleed, recently it was felt to be diverticular. 7. Causey's disease. 8. Hard of hearing. PAST SURGICAL HISTORY: He has had arthroscopies to his knees and he has had heart catheterization, but no stents. MEDICATIONS: Home meds include: 1. Tylenol 650 mg p.o. every 6 hours as needed. 2. Ferrous sulfate 325 mg p.o. b.i.d. ALLERGIES TO MEDICATIONS: Include no known drug allergies. FAMILY HISTORY: His mother had COPD and probable lung cancer. Father had a history of [place] and colon cancer. SOCIAL HISTORY: He does not smoke, does not drink. Surrogate decision maker is his . REVIEW OF SYSTEMS: There is no documented fever. He denied any recent significant weight change. There was no double vision. He denies having any ear discharge. There was no rhinorrhea, no sore throat, no thyroid enlargement. Denies having any chest pain. There is no orthopnea, no nocturnal dyspnea. There was no abdominal pain, no nausea, no vomiting. There was no dysuria, no frequency. There is no seizure, no loss of consciousness, no pruritus, and no skin ulcerations. Review of 14 systems was completed, all others negative. PHYSICAL EXAMINATION GENERAL: At this time, Mr. Barajas is a 76-year-old male patient. He appears to be well nourished, well developed. He does not appear to be in any acute distress. VITAL SIGNS: Blood pressure of 145/68, pulse was 68, respirations were 16, O2 sat was 100%, temperature was 98.2. HEENT: Head: Atraumatic, normocephalic. Eyes: EOMs are intact. Sclerae anicteric and not pale. Throat: Oral mucosa appears to be moist. No oropharyngeal erythema. NECK: Supple. LUNGS: Clear to auscultation. No wheezes, rales, or rhonchi. HEART: Sounds S1 and S2. Regular rate and rhythm. No murmurs, rubs, or gallops. ABDOMEN: Soft, flat, nontender. Bowel sounds are present. EXTREMITIES: Pulses were 2+ throughout. He is moving all 4 extremities with 5/ 5 strength. NEUROLOGIC: The patient is awake, alert, oriented x3. Tongue midline. Special Programs Director were equal. No gross focal deficits. SKIN: Intact. DIAGNOSTIC STUDIES/LAB DATA: WBC is 7.9, RBC of 2.29, hemoglobin 7.9, hematocrit 23, platelet count of 184. INR 0.91, PTT of 30.7. Sodium was 139, potassium of 4, chloride of 108, bicarb 26, BUN 19, creatinine of 1, glucose 108 , calcium 8.9. Total bili 0.3, AST 21, ALT 16, alk phos 42. CK was 151, CRP was 4.08. BNP of 42. Lipase normal. Urine was obtained, it was negative. The patient did have a GI bleed scan for nuclear medicine, impression: No focal uptake to suggest active bleeding. He had an EKG obtained today as well shows a normal sinus rhythm at rate of 62. No ST elevations or T-wave inversions. Reviewed with the previous EKG, it appears to be similar. Old medical records were reviewed. He did have a colonoscopy with Dr. Tobar just done on the , impression: Severe large mouthed robles diverticulosis to the ascending, transverse, and sigmoid colon and descending. Recent GI bleed with old present blood throughout the colon. No active bleeding seen. No bleeding seen in the terminal. Fair colonoscopy preparation. Old medical records were reviewed. ASSESSMENT AND PLAN: Mr. Barajas is a 76-year-old male patient coming into the ER today after just being discharged a few days ago and now back again with bleeding. He will be admitted under observation status for: 1. Lower gastrointestinal bleed. At this point, Dr. Loya has already been consulted. Again, the patient has blood several times now. Question is as if you know, we should proceed with possible colectomy or possible embolization. I will defer for GI management at this point. At this point, we will get serial H and Hs, 2 IVs in the patient. We will give him a unit of blood now as he is symptomatic and we will continue to follow him closely. 2. History of rheumatoid. Continue p.r.n. Tylenol. He is no longer on methotrexate. 3. History of hypertension and hyperlipidemia. Continue with lifestyle modifications for this, as he is currently not on medications. 4. History of benign prostatic hyperplasia. Continue his current medical regimen. 5. DVT prophylaxis. We will continue SCDs given the recent bleeding. 6. Fluids, electrolytes, and nutrition. Clear liquid diet. 7. Code status. He is a full code. TIME SPENT: On admission was 60 minutes, greater than half the time was spent face- to-face with the patient obtaining my history and physical, other half time was spent going over the plan of care with the patient and implementing plan of care. I did discuss the plan of care with my attending, Dr. Etienne; he is in agreement. ZACHARIAH MANSFIELD, INSTRUMENT TECHNICIAN [id number]/[facility] #: [id number] [facility]
[2017-06-28 22:18] LABS: ABS Basophils 0.1 10^3/ul (0-0.2); ABS Eosinophils 0.2 10^3/ul (0-0.6); ABS Lymphocytes 1.5 10^3/ul (1.0-4.8); ABS Monocytes 0.7 10^3/ul (0-0.8); ABS Nucleated RBC 0 10^3/ul; Eosinophil % 3.3 % (0-6); Hematocrit 20 % (42-52); Hemoglobin 6.7 g/dl (14.0-18.0); Lymphocyte % 22.8 % (25-47); Mean Corpuscular HGB Conc 34 g/dl (31-36); Mean Corpuscular Hemoglobin 33 pg (27-31); Mean Corpuscular Volume 96 fL (80-94); Mean Platelet Volume 9 um3 (7.4-10.4); Nucleated Red Blood Cells % 0.1; Platelet Count 173 10^3/ul (150-450); Red Blood Count 2.02 10^6/ul (4.0-5.4); Red Cell Distribution Width 17 % (10.5-15); White Blood Count 6.4 10^3/ul (3.5-10.8)
--- NOTE | 2017-06-28 22:50 | PN ---
Progress Note - Progress Note Date of Service: 06/28/17 Note: CAT response Nursing reports Mr Barajas, 76M admitted for painless BRBPR & HX diverticulosis/ GI bleed, was assisted to the bedside commode, became tremulous and then lost consciousness. He as assisted back to be and quickly arouse to baseline. He denies chest pain, SOB, palpitations, but reports feeling "terrible" which he is unable to further characterize. Vitals are hypertensive in the 150-160s, pulse is borderline bradycardic in the mid-60s. He appears pain and diaphoretic about the head, but not torso/extremities. He denies pain. I personally monitored him at the bedside for ~30 minutes during which he remained at baseline and began feeling better, laughing and joking. He was given 1unit pRBC earlier with a HGB of 7.3. He was 7.0 post-transfusion and now is 6.7. Lactic 1.7. 2 more units pRBCs were ordered, strict bedrest, add telemetry, Q4H vitals. Assessment: plan syncope, most consistent w/ vasovagal given vitals : bed rest : continue supplemental oxygen : continue IVFs painless lower GI bleed, likely diverticular : transfuse an additional 2units pRBCs : check next H&H 1 hour after 2nd unit completed
--- NOTE | 2017-06-28 23:24 | CONS ---
CONSULTATION REPORT: DATE OF CONSULT: 06/28/17 REQUESTING PHYSICIAN: Zachariah Mansfield NP INDICATION: Rectal bleeding. NARRATIVE: Mr. Barajas is a very pleasant 76-year-old gentleman who was discharged from the hospital Robert evening, just 2-1/2 days ago for diverticular bleed. He underwent a colonoscopy in the morning of discharge which revealed pandiverticulosis, but no bleeding site. The patient states that it felt like his previous episodes of diverticular bleeding. He states that around 4:30 this morning he awoke, had to go to the bathroom and it was dark maroon blood and then proceeded to become more bright red over the next few hours and then came into the emergency room. He does feel dizzy and lightheaded. No abdominal pain. No nausea, no vomiting, no fevers, no chills. He did have a colonoscopy in 2013 that revealed pandiverticulosis. He denies taking any nonsteroidals. PAST MEDICAL HISTORY: Significant for hypertension, hyperlipidemia, rheumatoid arthritis, history of C. diff, diverticulosis. PAST SURGICAL HISTORY: Includes tonsillectomy, right knee arthroscopy. MEDICATIONS: Include: 1. Zofran. 2. Omeprazole. 3. Tylenol. ALLERGIES: None. FAMILY HISTORY: Colon cancer, COPD, coronary artery disease, diabetes. SOCIAL HISTORY: Drinks 1 to 2 alcoholic beverages per day. No tobacco. REVIEW OF SYSTEMS: Twelve systems were reviewed, other than mentioned in the HPI were unremarkable. PHYSICAL EXAM: Temperature is 98.2, blood pressure 145/68, pulse 68, O2 sat is 100%, respiratory rate is 16. General: Well-appearing elderly male, lying flat in bed. Alert, oriented, pleasant, fluent. HEENT: Mucous membranes are moist without lesions, ulcers, or exudate. Neck: Supple. Trachea is midline. Head is normocephalic, atraumatic. Lymph Nodes: No supraclavicular or cervical lymphadenopathy. Heart: Regular rate and rhythm. Lungs: Clear to auscultation. Abdomen: Obese. Positive bowel sounds. Soft, nontender, nondistended. No hepatosplenomegaly, masses, rebound, or guarding. Skin is warm and dry. Warm to touch. Musculoskeletal: No CVA or spinal tenderness to palpation. DIAGNOSTIC STUDIES/LAB DATA: Of note, white count 7.9, hemoglobin went from 7.9. to 7.3. His platelets are 184. BUN is normal at 19. Creatinine is 1. Hemoglobin at discharge was 9.6 on the . He did have a bleeding scan earlier this morning in the emergency room, it was negative. ASSESSMENT AND PLAN: This is a pleasant 76-year-old gentleman with a known history of diverticulosis and suspected history of diverticular bleeding. He was just discharged less than 72 hours ago for diverticular bleeding with a colonoscopy in the morning of the discharge revealing pandiverticulosis. At this point, he likely again is bleeding from diverticular disease. He is not having any pain at all. There has been no nausea or vomiting. His BUN is normal. I do not think that this is a brisk upper GI bleed. His vital signs are stable. He is receiving a blood transfusion right now. He does have two large bore IVs. The question at this point is what to do next. Options we have would be to have Surgery see him for total colectomy. Unfortunately, I think his entire colon looks to be involved with diverticulosis and he likely would require a total colectomy. Other option would be to send him to a tertiary care center where they can perform a provocative angiogram, try and localize this bleed and then coil the artery. If he stops on his own, we may not need to do anything at this point. This was all discussed with the patient. He would like to think about things right now. We will continue to follow along and see him back again tomorrow. [id number]/[facility] #: [id number] JUDE
[2017-06-29 05:32] LABS: ABS Basophils 0.1 10^3/ul (0-0.2); ABS Eosinophils 0.2 10^3/ul (0-0.6); ABS Lymphocytes 1.5 10^3/ul (1.0-4.8); ABS Monocytes 0.6 10^3/ul (0-0.8); ABS Neutrophils 6.1 10^3/ul (1.5-7.7); ABS Nucleated RBC 0 10^3/ul; Hematocrit 23 % (42-52); Hemoglobin 7.9 g/dl (14.0-18.0); Lymphocyte % 17.5 % (25-47); Mean Corpuscular HGB Conc 35 g/dl (31-36); Mean Corpuscular Hemoglobin 33 pg (27-31); Mean Corpuscular Volume 96 fL (80-94); Mean Platelet Volume 9 um3 (7.4-10.4); Nucleated Red Blood Cells % 0.1; Platelet Count 162 10^3/ul (150-450); Red Blood Count 2.39 10^6/ul (4.0-5.4); Red Cell Distribution Width 16 % (10.5-15); White Blood Count 8.4 10^3/ul (3.5-10.8)
[2017-06-29 05:44] LABS: INR 0.99 (0.77-1.02)
[2017-06-29 05:48] LABS: EGFR Non-African American 84.2 (>60)
[2017-06-29] MEDS: Ferrous Sulfate TAB* 325 MG PO SCH ×2 (10:00→21:17)
[2017-06-29] MEDS ORDERED: D5LR 20 MEQ KCL 1000 ML BAG* 1,000 ML IV SCH (11:00)
--- NOTE | 2017-06-29 14:32 | PN ---
Subjective Date of Service: 06/29/17 Interval History: p[y feels well, denies pain, last bloody BM was today at about noon Had a syncopal episode last night when ambulating, transfused additional 2 U PRBC Objective Active Medications: Acetaminophen (Tylenol Tab*) 650 mg PO Q4H PRN PRN Reason: FEVER/PAIN Ferrous Sulfate (Ferrous Sulfate Tab*) 325 mg PO BID [facility] Last Admin: 06/29/17 10:00 Dose: 325 mg Potassium Cl/Dextrose/Lact Ringer's (D5lr 20 Meq Kcl 1000 Ml Bag*) 1,000 mls @ 75 mls/hr IV PER RATE [facility] Last Admin: 06/29/17 10:56 Dose: 75 mls/hr Ondansetron HCl (Zofran Inj*) 4 mg IV Q6H PRN PRN Reason: NAUSEA Vital Signs - 8 hr 06/29/17 06/29/17 06/29/17 09:05 10:54 11:09 Temperature 98.5 F 98.3 F Pulse Rate 81 64 Respiratory 18 18 18 Rate Blood Pressure 161/74 128/68 (mmHg) O2 Sat by Pulse 99 99 99 Oximetry 06/29/17 06/29/17 11:45 12:00 Temperature Pulse Rate Respiratory Rate Blood Pressure (mmHg) O2 Sat by Pulse 99 99 Oximetry Oxygen Devices in Use Now: None Appearance: 76 yo m in nAd, AAOx3 Eyes: No Scleral Icterus, PERRLA Ears/Nose/Mouth/Throat: NL Teeth, Lips, Gums, Mucous Membranes Moist Neck: NL Appearance and Movements; NL JVP, Trachea Midline Respiratory: Symmetrical Chest Expansion and Respiratory Effort, Clear to Auscultation Cardiovascular: NL Sounds; No Murmurs; No JVD, RRR Abdominal: NL Sounds; No Tenderness; No Distention, No Hepatosplenomegaly Lymphatic: No Cervical Adenopathy Extremities: No Edema, No Clubbing, Cyanosis Skin: No Rash or Ulcers, No Nodules or Sclerosis Neurological: Alert and Oriented x 3, NL Muscle Strength and Tone Result Diagrams: 06/29/17 05:24 06/29/17 05:24 Additional Lab and Data: Lab Results 06/28/17 06/28/17 06/28/17 Range/Units 07:41 07:41 07:41 WBC (3.5-10.8) 10^3/ul RBC (4.0-5.4) 10^6/ul Hgb (14.0-18.0) g/dl Hct (42-52) % MCV (80-94) fL MCH (27-31) pg MCHC (31-36) g/dl RDW (10.5-15) % Plt Count (150-450) 10^3/ul MPV (7.4-10.4) um3 Neut % (Auto) (38-83) % Lymph % (Auto) (25-47) % [place] % (Auto) (1-9) % Eos % (Auto) (0-6) % Baso % (Auto) (0-2) % Absolute Neuts (auto) (1.5-7.7) 10^3/ul Absolute Lymphs (auto) (1.0-4.8) 10^3/ul Absolute Monos (auto) (0-0.8) 10^3/ul Absolute Eos (auto) (0-0.6) 10^3/ul Absolute Basos (auto) (0-0.2) 10^3/ul Absolute Nucleated RBC 10^3/ul Nucleated RBC % INR (Anticoag Therapy) 0.91 (0.77-1.02) APTT 30.7 (26.0-36.3) seconds Sodium 139 (133-145) mmol/L Potassium 4.0 (3.5-5.0) mmol/L Chloride 108 (101-111) mmol/L Carbon Dioxide 26 (22-32) mmol/L Anion Gap 5 (2-11) mmol/L BUN 19 (6-24) mg/dL Creatinine 1.00 (0.67-1.17) mg/dL Est GFR ( Amer) 93.4 (>60) Est GFR (Non-Af Amer) 72.6 (>60) BUN/Creatinine Ratio 19.0 (8-20) Glucose 108 H (70-100) mg/dL Calcium 8.9 (8.6-10.3) mg/dL Total Bilirubin 0.30 (0.2-1.0) mg/dL AST 21 (13-39) U/L ALT 16 (7-52) U/L Alkaline Phosphatase 42 (34-104) U/L Total Creatine Kinase 151 (10-223) U/L C-Reactive Protein 4.08 (< 5.00) mg/L B-Natriuretic Peptide 42 ( - 100) pg/mL Total Protein 5.8 L (6.4-8.9) g/dL Albumin 3.5 (3.2-5.2) g/dL Globulin 2.3 (2-4) g/dL Albumin/Globulin Ratio 1.5 (1-3) Lipase 27 (11.0-82.0) U/L Blood Type Antibody Screen Crossmatch 06/28/17 06/28/17 Range/Units 07:41 07:41 WBC 7.9 (3.5-10.8) 10^3/ul RBC 2.29 L (4.0-5.4) 10^6/ul Hgb 7.9 L (14.0-18.0) g/dl Hct 23 L (42-52) % MCV 100 H (80-94) fL MCH 35 H (27-31) pg MCHC 35 (31-36) g/dl RDW 13 (10.5-15) % Plt Count 184 (150-450) 10^3/ul MPV 9 (7.4-10.4) um3 Neut % (Auto) 78.7 (38-83) % Lymph % (Auto) 10.9 L (25-47) % [place] % (Auto) 8.1 (1-9) % Eos % (Auto) 1.9 (0-6) % Baso % (Auto) 0.4 (0-2) % Absolute Neuts (auto) 6.2 (1.5-7.7) 10^3/ul Absolute Lymphs (auto) 0.9 L (1.0-4.8) 10^3/ul Absolute Monos (auto) 0.6 (0-0.8) 10^3/ul Absolute Eos (auto) 0.1 (0-0.6) 10^3/ul Absolute Basos (auto) 0 (0-0.2) 10^3/ul Absolute Nucleated RBC 0 10^3/ul Nucleated RBC % 0.1 INR (Anticoag Therapy) (0.77-1.02) APTT (26.0-36.3) seconds Sodium (133-145) mmol/L Potassium (3.5-5.0) mmol/L Chloride (101-111) mmol/L Carbon Dioxide (22-32) mmol/L Anion Gap (2-11) mmol/L BUN (6-24) mg/dL Creatinine (0.67-1.17) mg/dL Est GFR ( Amer) (>60) Est GFR (Non-Af Amer) (>60) BUN/Creatinine Ratio (8-20) Glucose (70-100) mg/dL Calcium (8.6-10.3) mg/dL Total Bilirubin (0.2-1.0) mg/dL AST (13-39) U/L ALT (7-52) U/L Alkaline Phosphatase (34-104) U/L Total Creatine Kinase (10-223) U/L C-Reactive Protein (< 5.00) mg/L B-Natriuretic Peptide ( - 100) pg/mL Total Protein (6.4-8.9) g/dL Albumin (3.2-5.2) g/dL Globulin (2-4) g/dL Albumin/Globulin Ratio (1-3) Lipase (11.0-82.0) U/L Blood Type A Positive Antibody Screen Negative Crossmatch See Detail Assess/Plan/Problems-Billing Assessment: 76 yo m with h/o RA, HTN, recurrent diverticular bleed presents with BRBPR - Patient Problems (1) Lower GI bleed Comment: appreciate GI consult Suspect diverticular bleed noted in r colon on tagged RBC scan trend H/H surgery consulted D/w Dr. Gutierrez, cont clear liquid diet, unknown it Gi decides to do another colonoscopy (2) Hypertension Comment: no home meds, currently normotensive (3) Syncope Comment: suspect vagal due to GI bleed and BM. Cont bedrest with bathroom priviledges (4) Anemia Comment: due to lower GI bleed, s/p 3 U PRBC transfusion inthe past 24H. (5) DVT prophylaxis Comment: SCDs in setting of LGIB Status and Disposition: inpatient
--- NOTE | 2017-06-29 15:24 | CONSULT ---
Consult Consult: CC: lower GI bleed HPI: This is a 76 yo M with h/o diverticular bleed in the past who was admitted for LGIB last week and had been d/c'd without need for transfusion. He was readmitted yesterday with BRBPR with syncope last night and has received 3 u PRBCs. He has had passage of additional blood today with clots and feels lightheaded and weak. He has had a positive bleeding scan which indicates a right side colonic bleed. Last week he had a colonoscopy showing blood throughtout the colon and pandiverticulosis with large diverticula on the right. At present, he feels a bubbling sensation in the RLQ and feels he will soon have another BM. PMH: RA, HTN, hyperlipidemia, BPH,Ede's dz, hearing loss. PSH: knee arthroscopy All: NKDA MEDS: SH:-tob; +EtOH (1-2 drinks/night); . FH: reviewed; non contributory ROS: Const: no F/C. Cardiac: no CP, SOB. Pulm: no cough/wheeze. GI: no N/V ; as above. Vital Signs Temp 98.3 F 06/29/17 10:54 Pulse 64 06/29/17 10:54 Resp 18 06/29/17 11:09 BP 128/68 06/29/17 10:54 Pulse Ox 99 06/29/17 12:00 Gen: WDWN; NAD Lungs: CTA B Heart: reg s1s2 Abd: no scars; ND; soft; NT; No mass/hepato/splenomegaly. Ext: warm; no c/c/e. Laboratory Results - last 24 hr 06/28/17 06/28/17 06/28/17 07:41 19:51 21:41 WBC 6.4 RBC 2.02 L Hgb 7.0 L 6.7 L Hct 21 L 20 L MCV 96 H MCH 33 H MCHC 34 RDW 17 H Plt Count 173 MPV 9 Neut % (Auto) 62.2 Lymph % (Auto) 22.8 L [place] % (Auto) 10.8 H Eos % (Auto) 3.3 Baso % (Auto) 0.9 Absolute Neuts (auto) 4.0 Absolute Lymphs (auto) 1.5 Absolute Monos (auto) 0.7 Absolute Eos (auto) 0.2 Absolute Basos (auto) 0.1 Absolute Nucleated RBC 0 Nucleated RBC % 0.1 INR (Anticoag Therapy) Sodium Potassium Chloride Carbon Dioxide Anion Gap BUN Creatinine Est GFR ( Amer) Est GFR (Non-Af Amer) BUN/Creatinine Ratio Glucose Lactic Acid Calcium Blood Type A Positive Antibody Screen Negative Crossmatch See Detail 06/28/17 06/29/17 06/29/17 21:41 05:24 05:24 WBC 8.4 RBC 2.39 L Hgb 7.9 L Hct 23 L MCV 96 H MCH 33 H MCHC 35 RDW 16 H Plt Count 162 MPV 9 Neut % (Auto) 72.6 Lymph % (Auto) 17.5 L [place] % (Auto) 7.2 Eos % (Auto) 2.0 Baso % (Auto) 0.7 Absolute Neuts (auto) 6.1 Absolute Lymphs (auto) 1.5 Absolute Monos (auto) 0.6 Absolute Eos (auto) 0.2 Absolute Basos (auto) 0.1 Absolute Nucleated RBC 0 Nucleated RBC % 0.1 INR (Anticoag Therapy) 0.99 Sodium Potassium Chloride Carbon Dioxide Anion Gap BUN Creatinine Est GFR ( Amer) Est GFR (Non-Af Amer) BUN/Creatinine Ratio Glucose Lactic Acid 1.7 Calcium Blood Type Antibody Screen Crossmatch 06/29/17 05:24 WBC RBC Hgb Hct MCV MCH MCHC RDW Plt Count MPV Neut % (Auto) Lymph % (Auto) [place] % (Auto) Eos % (Auto) Baso % (Auto) Absolute Neuts (auto) Absolute Lymphs (auto) Absolute Monos (auto) Absolute Eos (auto) Absolute Basos (auto) Absolute Nucleated RBC Nucleated RBC % INR (Anticoag Therapy) Sodium 138 Potassium 3.7 Chloride 112 H Carbon Dioxide 22 Anion Gap 4 BUN 18 Creatinine 0.88 Est GFR ( Amer) 108.3 Est GFR (Non-Af Amer) 84.2 BUN/Creatinine Ratio 20.5 H Glucose 105 H Lactic Acid Calcium 7.8 L Blood Type Antibody Screen Crossmatch Radiographic data: Nucl bleeding scan images were reviewed with Dr. Luna. Initial images were negative, but delayed images show bleeding in R colon. Impression: Right side colonic diverticular bleed, recurrent. There is concern for ongoing bleeding, but he is hemodynamically stable at this time. Plan/Recommendation: Findings were discussed with the patient and his . The management options were explained, both surgical and non-surgical. As we do not have IR available he would need to be transferred for this option. I explained that surgical option is for lap assisted or open right colectomy. I discussed the indications, risks, benefits, alternatives, and option of no treatment. Risks explained including, not limited to, bleeding, infection, pain , scarring, blood clots, pneumonia, open surgery, N/V, change in BM and the risk of GETA. He had all questions answered and he agrees to proceed.
[2017-06-29] MEDS ORDERED: Buffered Lidocaine 0.9% SYRIN* 5 ML/SYR SYRINGE INTRADERM ONE (15:25)
[2017-06-29] MEDS ORDERED: Bupivacaine 0.25% SDV* 30 ML ONE (15:47)
[2017-06-29 15:51] LABS: Hematocrit 24 % (42-52); Hemoglobin 8.2 g/dl (14.0-18.0)
[2017-06-29] MEDS ORDERED: ERTAPENEM IVPB ONE (15:52)
[2017-06-29] MEDS ORDERED: NS 0.9% IVPB ONE (15:52)
[2017-06-29] MEDS ORDERED: Buffered Lidocaine 0.9% SYRIN* 5 ML/SYR SYRINGE ONE (16:14)
[2017-06-29] MEDS ORDERED: fentaNYL* 50 MCG/ML 5 ML VIAL (250 MCG VIAL) ONE ×2 (16:24→18:36)
[2017-06-29] MEDS ORDERED: Midazolam* 1 MG/ML 10 ML VIAL (10 MG) ONE (16:25)
[2017-06-29] MEDS ORDERED: Atracurium* 10 MG/ML 10 ML VIAL ONE (16:25)
[2017-06-29] MEDS ORDERED: KETAMINE HCL* 50 MG/ML 10 ML VIAL ONE (16:25)
[2017-06-29] MEDS ORDERED: Hetastarch in NS* 500 ML IV ONE (16:48)
[2017-06-29 18:32] LABS: Hematocrit 23 % (42-52); Hemoglobin 7.7 g/dl (14.0-18.0)
[2017-06-29] MEDS ORDERED: DiMENhydriNATE IV* 50 MG/ML VIAL IV PUSH PRN (19:03)
[2017-06-29] MEDS ORDERED: PROCHLORPERAZINE INJ 5 MG/ML 2 ML VIAL IV PRN (19:03)
[2017-06-29] MEDS ORDERED: Ondansetron INJ* 2 MG/ML VIAL IV PRN (19:03)
[2017-06-29] MEDS ORDERED: Naloxone* 0.4 MG/ML 1 ML VIAL IV PRN (19:03)
[2017-06-29] MEDS ORDERED: Ondansetron INJ* 2 MG/ML VIAL ONE (19:05)
[2017-06-29] MEDS ORDERED: Propofol* 10 MG/ML 20 ML BTL IV PUSH ONE (19:05)
[2017-06-29] MEDS ORDERED: Glycopyrrolate IV* 0.2 MG/ML 1 ML VIAL ONE (19:05)
[2017-06-29] MEDS ORDERED: Metoprolol Tartrate IV* 1 MG/ML 5 ML VIAL ONE (19:05)
[2017-06-29] MEDS ORDERED: EPHEDrine (Pressors)* 50 MG/ML VIAL ONE (19:05)
[2017-06-29] MEDS ORDERED: Neostigmine Methylsulfate* 2 MG/2 ML SYRINGE ONE (19:05)
[2017-06-29] MEDS ORDERED: Dexamethasone IV* 4 MG/ML 1 ML (4 MG) ONE (19:05)
[2017-06-29] MEDS ORDERED: Succinylcholine* 20 MG/ML 10 ML VIAL ONE (19:12)
[2017-06-29] MEDS ORDERED: Morphine INJ* 10 MG/ML 1 ML CARPUJECT ONE (19:29)
--- NOTE | 2017-06-29 20:40 | BRIEFOPN ---
Brief Operative Note - Surgery Procedures: Pre-op: Lower GI bleeding Post-op: Same Procedure: Laparoscopic assisted right colectomy Surgeon: MD Branden Records Management Clerk: YAMILA Laurent Anaesthesia: GET EBL: <100cc Fluids: LR 2,500 cc Drains: None Catheter: Jeronimo to gravity Specimen: Right colon Findings: See dictated op note
[2017-06-29] MEDS ORDERED: Labetalol IV* 5 MG/ML 20 ML VIAL ONE (20:41)
[2017-06-29] MEDS ORDERED: Morphine INJ* 2 MG/ML 1 ML SYRINGE (TWO MG - NEW SYRINGE VERSION) IV PRN (20:42)
[2017-06-29] MEDS ORDERED: Morphine INJ* 4 MG/ML 1 ML CARPUJECT IV ONE (20:54)
[2017-06-29] MEDS ORDERED: Morphine PCA ADULT* 5 MG/ML 30 ML PCA SCH (21:00)
[2017-06-29] MEDS: Morphine INJ* 2 MG/ML 1 ML CARPUJECT IV PRN ×2 (21:01→21:35)
[2017-06-29] MEDS ORDERED: fentaNYL* 50 MCG/ML 2 ML VIAL (100 MCG VIAL) ONE (21:18)
[2017-06-29] MEDS: fentaNYL* 50 MCG/ML 2 ML VIAL (100 MCG VIAL) IV PRN ×4 (21:23→23:05)
[2017-06-29 22:07] LABS: Hematocrit 23 % (42-52); Hemoglobin 7.8 g/dl (14.0-18.0)
[2017-06-30 05:20] LABS: ABS Basophils 0 10^3/ul (0-0.2); ABS Eosinophils 0 10^3/ul (0-0.6); ABS Lymphocytes 0.4 10^3/ul (1.0-4.8); ABS Monocytes 0.9 10^3/ul (0-0.8); ABS Neutrophils 15.4 10^3/ul (1.5-7.7); ABS Nucleated RBC 0 10^3/ul; Eosinophil % 0 % (0-6); Hematocrit 23 % (42-52); Lymphocyte % 2.1 % (25-47); Mean Corpuscular HGB Conc 34 g/dl (31-36); Mean Corpuscular Hemoglobin 33 pg (27-31); Mean Corpuscular Volume 97 fL (80-94); Mean Platelet Volume 9 um3 (7.4-10.4); Nucleated Red Blood Cells % 0; Platelet Count 180 10^3/ul (150-450); Red Blood Count 2.42 10^6/ul (4.0-5.4); Red Cell Distribution Width 16 % (10.5-15); White Blood Count 16.7 10^3/ul (3.5-10.8)
[2017-06-30 05:36] LABS: EGFR Non-African American 73.5 (>60)
--- NOTE | 2017-06-30 08:07 | HP ---
H&P (Free Text) History and Physical: I have seen and examined the patient and reviewed the chart and tests. I agree with the H&P by the PA and will plan on lap viviane.
--- NOTE | 2017-06-30 08:18 | PN ---
Progress Note - Progress Note Date of Service: 06/30/17 SOAP: Subjective: Sleeping but arousable. Has pain controlled with FINE ARTIST. No BMs. No N/V. Objective: Vital Signs Temp 99.4 F 06/30/17 07:15 Pulse 85 06/30/17 07:21 Resp 16 06/30/17 07:21 BP 142/67 06/30/17 07:21 Pulse Ox 96 06/30/17 07:47 Gen: NAD Abd: dressings c/d/i; soft, ND; tender at incisions. Intake & Output 06/29/17 06/30/17 06/30/17 18:59 06:59 18:59 Intake Total 565 5900 Output Total 2300 Balance 565 3600 Intake: IV Fluids 5900 HEXTEND 500 LR 4900 hextend 500 Oral 565 0 Output: Jeronimo 2200 Estimated Blood Loss 100 Other: Estimated Void Medium # Bowel Movements 1 Estimated Stool Amount Medium # Voids 1 Laboratory Results - last 24 hr 06/28/17 06/29/17 06/29/17 07:41 15:43 18:20 WBC RBC Hgb 8.2 L 7.7 L Hct 24 L 23 L MCV MCH MCHC RDW Plt Count MPV Neut % (Auto) Lymph % (Auto) [place] % (Auto) Eos % (Auto) Baso % (Auto) Absolute Neuts (auto) Absolute Lymphs (auto) Absolute Monos (auto) Absolute Eos (auto) Absolute Basos (auto) Absolute Nucleated RBC Nucleated RBC % Sodium Potassium Chloride Carbon Dioxide Anion Gap BUN Creatinine Est GFR ( Amer) Est GFR (Non-Af Amer) BUN/Creatinine Ratio Glucose Calcium Blood Type A Positive Antibody Screen Negative Crossmatch See Detail 06/29/17 06/30/17 06/30/17 22:03 04:44 04:44 WBC 16.7 H RBC 2.42 L Hgb 7.8 L 8.0 L Hct 23 L 23 L MCV 97 H MCH 33 H MCHC 34 RDW 16 H Plt Count 180 MPV 9 Neut % (Auto) 92.3 H Lymph % (Auto) 2.1 L [place] % (Auto) 5.6 Eos % (Auto) 0 Baso % (Auto) 0 Absolute Neuts (auto) 15.4 H Absolute Lymphs (auto) 0.4 L Absolute Monos (auto) 0.9 H Absolute Eos (auto) 0 Absolute Basos (auto) 0 Absolute Nucleated RBC 0 Nucleated RBC % 0 Sodium 137 Potassium 4.2 Chloride 107 Carbon Dioxide 26 Anion Gap 4 BUN 15 Creatinine 0.99 Est GFR ( Amer) 94.5 Est GFR (Non-Af Amer) 73.5 BUN/Creatinine Ratio 15.2 Glucose 173 H Calcium 8.0 L Blood Type Antibody Screen Crossmatch Assessment: POD#1 s/p lap R colectomy. Stable. Plan: Clears. Ambulate. Await GI fct.
[2017-06-30] MEDS: Ferrous Sulfate TAB* 325 MG PO SCH ×2 (09:08→20:41)
--- NOTE | 2017-06-30 09:28 | PN ---
Subjective Date of Service: 06/30/17 Interval History: pt feels "sore" in his post op abd site. On NEUROLOGICAL SURGERY TEACHER for pain control Objective Active Medications: Acetaminophen (Tylenol Tab*) 650 mg PO Q4H PRN PRN Reason: FEVER/PAIN Dexamethasone Sodium Phosphate (Decadron Iv*) 8 mg IV SLOW PU ONCE ONE Stop: 06/30/17 11:01 Last Admin: 06/30/17 09:15 Dose: Not Given Famotidine (Pepcid Iv*) 20 mg IV ONCE ONE Stop: 06/30/17 11:01 Last Admin: 06/30/17 09:15 Dose: Not Given Ferrous Sulfate (Ferrous Sulfate Tab*) 325 mg PO BID [facility] Last Admin: 06/30/17 09:08 Dose: 325 mg Morphine Sulfate (Morphine Orange Peel Operator Adult* 5 Mg/Ml) 30 mls @ 0 mls/hr NEUROLOGICAL SURGERY TEACHER .change Q24H [facility]; Per Protocol PRN Reason: Protocol Last Admin: 06/30/17 00:00 Dose: 1 mls/hr Lactated Ringer's (Lactated Ringers 1000 Ml Bag*) 1,000 mls @ 125 mls/hr IV PER RATE [facility] Last Admin: 06/30/17 08:01 Dose: 125 mls/hr Naloxone HCl (Narcan*) 0.08 mg IV Q2M PRN PRN Reason: severe induced resp depression Stop: 06/30/17 19:02 Ondansetron HCl (Zofran Inj*) 4 mg IV Q6H PRN PRN Reason: NAUSEA Ondansetron HCl (Zofran Inj*) 4 mg IV Q6H PRN PRN Reason: NAUSEA Vital Signs - 8 hr 06/30/17 06/30/17 06/30/17 01:58 01:59 03:12 Temperature 98.5 F Pulse Rate 85 Respiratory 18 16 Rate Blood Pressure 167/83 (mmHg) O2 Sat by Pulse 98 95 97 Oximetry 06/30/17 06/30/17 06/30/17 03:54 03:59 05:00 Temperature 98.0 F Pulse Rate 85 Respiratory 16 16 16 Rate Blood Pressure 155/70 (mmHg) O2 Sat by Pulse 97 96 96 Oximetry 06/30/17 06/30/17 06/30/17 05:55 06:30 07:00 Temperature 99.1 F Pulse Rate 88 Respiratory 17 16 Rate Blood Pressure 145/69 (mmHg) O2 Sat by Pulse 98 92 98 Oximetry 06/30/17 06/30/17 06/30/17 07:15 07:21 07:47 Temperature 99.4 F Pulse Rate 85 Respiratory 16 Rate Blood Pressure 142/67 (mmHg) O2 Sat by Pulse 98 96 Oximetry 06/30/17 09:09 Temperature Pulse Rate Respiratory 16 Rate Blood Pressure (mmHg) O2 Sat by Pulse 95 Oximetry Oxygen Devices in Use Now: Nasal Cannula - at 3L, OxyMask Appearance: 76 yo M in nAD, aAOx3 Eyes: No Scleral Icterus, PERRLA Ears/Nose/Mouth/Throat: NL Teeth, Lips, Gums, Mucous Membranes Moist Neck: NL Appearance and Movements; NL JVP, Trachea Midline Respiratory: Symmetrical Chest Expansion and Respiratory Effort Cardiovascular: NL Sounds; No Murmurs; No JVD, RRR Abdominal: - - post op incisions covered, mild tenderness diffusely, BS+, no guarding, no rebound Lymphatic: No Cervical Adenopathy Extremities: No Edema, No Clubbing, Cyanosis Skin: No Nodules or Sclerosis Neurological: Alert and Oriented x 3, NL Muscle Strength and Tone Result Diagrams: 06/30/17 04:44 06/30/17 04:44 Additional Lab and Data: Lab Results 06/28/17 06/28/17 06/28/17 Range/Units 07:41 07:41 07:41 WBC (3.5-10.8) 10^3/ul RBC (4.0-5.4) 10^6/ul Hgb (14.0-18.0) g/dl Hct (42-52) % MCV (80-94) fL MCH (27-31) pg MCHC (31-36) g/dl RDW (10.5-15) % Plt Count (150-450) 10^3/ul MPV (7.4-10.4) um3 Neut % (Auto) (38-83) % Lymph % (Auto) (25-47) % [place] % (Auto) (1-9) % Eos % (Auto) (0-6) % Baso % (Auto) (0-2) % Absolute Neuts (auto) (1.5-7.7) 10^3/ul Absolute Lymphs (auto) (1.0-4.8) 10^3/ul Absolute Monos (auto) (0-0.8) 10^3/ul Absolute Eos (auto) (0-0.6) 10^3/ul Absolute Basos (auto) (0-0.2) 10^3/ul Absolute Nucleated RBC 10^3/ul Nucleated RBC % INR (Anticoag Therapy) 0.91 (0.77-1.02) APTT 30.7 (26.0-36.3) seconds Sodium 139 (133-145) mmol/L Potassium 4.0 (3.5-5.0) mmol/L Chloride 108 (101-111) mmol/L Carbon Dioxide 26 (22-32) mmol/L Anion Gap 5 (2-11) mmol/L BUN 19 (6-24) mg/dL Creatinine 1.00 (0.67-1.17) mg/dL Est GFR ( Amer) 93.4 (>60) Est GFR (Non-Af Amer) 72.6 (>60) BUN/Creatinine Ratio 19.0 (8-20) Glucose 108 H (70-100) mg/dL Calcium 8.9 (8.6-10.3) mg/dL Total Bilirubin 0.30 (0.2-1.0) mg/dL AST 21 (13-39) U/L ALT 16 (7-52) U/L Alkaline Phosphatase 42 (34-104) U/L Total Creatine Kinase 151 (10-223) U/L C-Reactive Protein 4.08 (< 5.00) mg/L B-Natriuretic Peptide 42 ( - 100) pg/mL Total Protein 5.8 L (6.4-8.9) g/dL Albumin 3.5 (3.2-5.2) g/dL Globulin 2.3 (2-4) g/dL Albumin/Globulin Ratio 1.5 (1-3) Lipase 27 (11.0-82.0) U/L Blood Type Antibody Screen Crossmatch 06/28/17 06/28/17 Range/Units 07:41 07:41 WBC 7.9 (3.5-10.8) 10^3/ul RBC 2.29 L (4.0-5.4) 10^6/ul Hgb 7.9 L (14.0-18.0) g/dl Hct 23 L (42-52) % MCV 100 H (80-94) fL MCH 35 H (27-31) pg MCHC 35 (31-36) g/dl RDW 13 (10.5-15) % Plt Count 184 (150-450) 10^3/ul MPV 9 (7.4-10.4) um3 Neut % (Auto) 78.7 (38-83) % Lymph % (Auto) 10.9 L (25-47) % [place] % (Auto) 8.1 (1-9) % Eos % (Auto) 1.9 (0-6) % Baso % (Auto) 0.4 (0-2) % Absolute Neuts (auto) 6.2 (1.5-7.7) 10^3/ul Absolute Lymphs (auto) 0.9 L (1.0-4.8) 10^3/ul Absolute Monos (auto) 0.6 (0-0.8) 10^3/ul Absolute Eos (auto) 0.1 (0-0.6) 10^3/ul Absolute Basos (auto) 0 (0-0.2) 10^3/ul Absolute Nucleated RBC 0 10^3/ul Nucleated RBC % 0.1 INR (Anticoag Therapy) (0.77-1.02) APTT (26.0-36.3) seconds Sodium (133-145) mmol/L Potassium (3.5-5.0) mmol/L Chloride (101-111) mmol/L Carbon Dioxide (22-32) mmol/L Anion Gap (2-11) mmol/L BUN (6-24) mg/dL Creatinine (0.67-1.17) mg/dL Est GFR ( Amer) (>60) Est GFR (Non-Af Amer) (>60) BUN/Creatinine Ratio (8-20) Glucose (70-100) mg/dL Calcium (8.6-10.3) mg/dL Total Bilirubin (0.2-1.0) mg/dL AST (13-39) U/L ALT (7-52) U/L Alkaline Phosphatase (34-104) U/L Total Creatine Kinase (10-223) U/L C-Reactive Protein (< 5.00) mg/L B-Natriuretic Peptide ( - 100) pg/mL Total Protein (6.4-8.9) g/dL Albumin (3.2-5.2) g/dL Globulin (2-4) g/dL Albumin/Globulin Ratio (1-3) Lipase (11.0-82.0) U/L Blood Type A Positive Antibody Screen Negative Crossmatch See Detail Assess/Plan/Problems-Billing Assessment: 76 yo m with h/o RA, HTN, recurrent diverticular bleed presents with BRBPR - Patient Problems (1) Lower GI bleed Comment: appreciate GI consult Diverticular bleed noted in r colon on tagged RBC scan, s/p R colectomy by Dr. Otero on 06/29/17. trend H/H (2) Hypertension Comment: no home meds, currently normotensive (3) Syncope Comment: suspect vagal due to GI bleed and BM on 06/28/17 (4) Anemia Comment: due to lower GI bleed, s/p 5 U PRBC transfusion this hospital stay (5) DVT prophylaxis Comment: SCDs in setting of LGIB Status and Disposition: inpatient
[2017-06-30] MEDS ORDERED: Dexamethasone IV* 4 MG/ML 1 ML (4 MG) IV SLOW PU ONE (11:00)
[2017-06-30] MEDS ORDERED: Famotidine IV* 10 MG/ML 2 ML (20 mg) IV ONE (11:00)
[2017-06-30] MEDS ORDERED: Magnesium Sulfate 1 GM IV* 1 GM/100 ML BAG IV ONE (11:12)
[2017-06-30] MEDS: Ondansetron INJ* 2 MG/ML VIAL IV PRN (15:52)
--- NOTE | 2017-06-30 18:39 | OP ---
CC: Mary Ramirez MD; [facility]. * DATE OF OPERATION: 06/29/17 - ROOM #334 DATE OF : 40. SURGEON: Preet Otero MD. NEWS PRODUCTION ASSISTANT: YAMILA Lester. ANESTHESIOLOGIST: Dr. Alonzo Arnold ANESTHESIA: General endotracheal. PRE-OP DIAGNOSIS: Right colon diverticular bleed. POST-OP DIAGNOSIS: Right colon diverticular bleed. OPERATIVE PROCEDURE: Laparoscopic-assisted right colectomy. ESTIMATED BLOOD LOSS: Less than 100 mL. IV FLUIDS: 2.5 liters crystalloid and 500 mL of hetastarch. SPECIMEN: Right colon. DRAINS: None. COMPLICATIONS: None. COUNTS: The instrument, needle, and sponge counts were correct. DESCRIPTION OF PROCEDURE: The patient was brought to the operating room and placed on the table supine. Sequential compression devices were placed on both lower extremities. General anesthesia was administered. A Jeronimo catheter was placed. He was positioned and padded appropriately. He received appropriate intravenous antibiotics. He was prepped and draped in the usual sterile fashion and time-out was performed. Local anesthetic was infiltrated into the skin and soft tissue prior to making of each incision. Entry into the abdomen was through the supraumbilical midline incision using 5-mm optical trocar. After accessing the peritoneal cavity, carbon dioxide was insufflated to a pressure of 15 mmHg. Under direct visualization, two additional 5-mm trocars were placed in the left upper quadrant and 1 additional 5-mm trocar was placed in the right upper quadrant. Inspection of the abdominal cavity revealed that the cecum was relatively close to the hepatic flexure. The cecum was about the level of the umbilicus. The mobilization proceeded from the terminal ileum distally on to the ascending colon using LigaSure to mobilize the lateral attachments up to and including the hepatic flexure. The dissection also proceeded from the gastric colic ligament and identifying and preserving the duodenum. The right colon was mobilized to the midline in this fashion and then an upper midline laparotomy was undertaken. An Gregory retractor was used and the right colon was exteriorized. The mesentry was divided with LigaSure staying close to the bowel wall. The ileocolic vessels were divided between Emily clamps, ligated with 2-0 Vicryl ties or suture ligatures. Additional mesentry of the terminal ileum was divided with LigaSure. The bowel was divided distally in the mid transverse colon proximally about 5 cm proximal to the ileocecal valve. The specimen was handed off and submitted to Pathology. The terminal ileum was rather tethered and portion of the mesentry was divided in order to mobilize it further. This necessitated excising an additional segment of the ileum with a FAB stapler. Continuity of the bowel was restored by means of [id number], functional end- to- end, stapled anastomosis using a 60 mm FAB stapler and then closing the common enterotomy with a TA stapler. The crotch was reinforced with 3-0 silks. The end of the staple line was oversewn with a running 4-0 PDS and the mesenteric defect was closed with 3-0 silk in an interrupted fashion. The viscera was irrigated and then returned to the abdominal cavity. The abdominal cavity was inspected and hemostasis was excellent. The irrigation was performed in the right upper quadrant. Midline wound was closed with #1 PDS running. The remaining portion removed and all the skin incisions were closed with dinah. Dressings were applied. The patient tolerated the procedure well and was extubated and transferred to recovery room in stable condition. [id number]/CPS #: [id number] JUDE
[2017-06-30] MEDS: Saline NASAL SPRAY 0.65%* BTL BOTH NARES SCH (20:42)
[2017-07-01] MEDS: Ondansetron INJ* 2 MG/ML VIAL IV PRN (05:25)
[2017-07-01 05:28] LABS: ABS Basophils 0 10^3/ul (0-0.2); ABS Eosinophils 0.1 10^3/ul (0-0.6); ABS Lymphocytes 1.1 10^3/ul (1.0-4.8); ABS Monocytes 0.8 10^3/ul (0-0.8); ABS Neutrophils 6.8 10^3/ul (1.5-7.7); ABS Nucleated RBC 0 10^3/ul; Eosinophil % 1.2 % (0-6); Hematocrit 22 % (42-52); Hemoglobin 7.3 g/dl (14.0-18.0); Lymphocyte % 12.5 % (25-47); Mean Corpuscular HGB Conc 34 g/dl (31-36); Mean Corpuscular Hemoglobin 33 pg (27-31); Mean Corpuscular Volume 98 fL (80-94); Mean Platelet Volume 8 um3 (7.4-10.4); Nucleated Red Blood Cells % 0; Platelet Count 186 10^3/ul (150-450); Red Cell Distribution Width 17 % (10.5-15); White Blood Count 8.7 10^3/ul (3.5-10.8)
[2017-07-01 05:42] LABS: EGFR Non-African American 75.2 (>60)
--- NOTE | 2017-07-01 08:32 | PN ---
Subjective Date of Service: 07/01/17 Interval History: pt feels tired and weak. Had "some" flatus. Post op abd pain is unchanged Objective Active Medications: Acetaminophen (Tylenol Tab*) 650 mg PO Q4H PRN PRN Reason: FEVER/PAIN Ferrous Sulfate (Ferrous Sulfate Tab*) 325 mg PO BID [facility] Last Admin: 06/30/17 20:41 Dose: 325 mg Morphine Sulfate (Morphine Patternmaker Helper Adult* 5 Mg/Ml) 30 mls @ 0 mls/hr ADDICTIONS RECOVERY SPECIALIST .change Q24H [facility]; Per Protocol PRN Reason: Protocol Last Admin: 06/30/17 00:00 Dose: 1 mls/hr Lactated Ringer's (Lactated Ringers 1000 Ml Bag*) 1,000 mls @ 60 mls/hr IV PER RATE [facility] Last Admin: 06/30/17 23:27 Dose: 60 mls/hr Ondansetron HCl (Zofran Inj*) 4 mg IV Q6H PRN PRN Reason: NAUSEA Last Admin: 07/01/17 05:25 Dose: 4 mg Ondansetron HCl (Zofran Inj*) 4 mg IV Q6H PRN PRN Reason: NAUSEA Sodium Chloride (Sodium Chloride 0.65% Nasal [place]*) 2 spray BOTH NARES BID [facility] Last Admin: 06/30/17 20:42 Dose: 2 spray Vital Signs - 8 hr 07/01/17 07/01/17 07/01/17 01:00 03:00 03:45 Temperature 99.5 F Pulse Rate 80 Respiratory 14 14 16 Rate Blood Pressure 163/82 (mmHg) O2 Sat by Pulse 95 94 96 Oximetry 07/01/17 07/01/17 05:00 06:30 Temperature Pulse Rate Respiratory 18 Rate Blood Pressure (mmHg) O2 Sat by Pulse 97 97 Oximetry Oxygen Devices in Use Now: Nasal Cannula - at 2l Appearance: 76 yo M in nAD, AAOx3 Eyes: No Scleral Icterus, PERRLA Ears/Nose/Mouth/Throat: NL Teeth, Lips, Gums, Mucous Membranes Moist Neck: NL Appearance and Movements; NL JVP, Trachea Midline Respiratory: Symmetrical Chest Expansion and Respiratory Effort, Clear to Auscultation Cardiovascular: NL Sounds; No Murmurs; No JVD, RRR Abdominal: No Hepatosplenomegaly, - - soft, mild tenderness around incision sites Lymphatic: No Cervical Adenopathy Extremities: No Clubbing, Cyanosis Skin: No Nodules or Sclerosis, - - incisions covered with post op dressings Neurological: Alert and Oriented x 3, NL Muscle Strength and Tone Result Diagrams: 07/01/17 05:11 07/01/17 05:11 Additional Lab and Data: Lab Results 06/28/17 06/28/17 06/28/17 Range/Units 07:41 07:41 07:41 WBC (3.5-10.8) 10^3/ul RBC (4.0-5.4) 10^6/ul Hgb (14.0-18.0) g/dl Hct (42-52) % MCV (80-94) fL MCH (27-31) pg MCHC (31-36) g/dl RDW (10.5-15) % Plt Count (150-450) 10^3/ul MPV (7.4-10.4) um3 Neut % (Auto) (38-83) % Lymph % (Auto) (25-47) % [place] % (Auto) (1-9) % Eos % (Auto) (0-6) % Baso % (Auto) (0-2) % Absolute Neuts (auto) (1.5-7.7) 10^3/ul Absolute Lymphs (auto) (1.0-4.8) 10^3/ul Absolute Monos (auto) (0-0.8) 10^3/ul Absolute Eos (auto) (0-0.6) 10^3/ul Absolute Basos (auto) (0-0.2) 10^3/ul Absolute Nucleated RBC 10^3/ul Nucleated RBC % INR (Anticoag Therapy) 0.91 (0.77-1.02) APTT 30.7 (26.0-36.3) seconds Sodium 139 (133-145) mmol/L Potassium 4.0 (3.5-5.0) mmol/L Chloride 108 (101-111) mmol/L Carbon Dioxide 26 (22-32) mmol/L Anion Gap 5 (2-11) mmol/L BUN 19 (6-24) mg/dL Creatinine 1.00 (0.67-1.17) mg/dL Est GFR ( Amer) 93.4 (>60) Est GFR (Non-Af Amer) 72.6 (>60) BUN/Creatinine Ratio 19.0 (8-20) Glucose 108 H (70-100) mg/dL Calcium 8.9 (8.6-10.3) mg/dL Total Bilirubin 0.30 (0.2-1.0) mg/dL AST 21 (13-39) U/L ALT 16 (7-52) U/L Alkaline Phosphatase 42 (34-104) U/L Total Creatine Kinase 151 (10-223) U/L C-Reactive Protein 4.08 (< 5.00) mg/L B-Natriuretic Peptide 42 ( - 100) pg/mL Total Protein 5.8 L (6.4-8.9) g/dL Albumin 3.5 (3.2-5.2) g/dL Globulin 2.3 (2-4) g/dL Albumin/Globulin Ratio 1.5 (1-3) Lipase 27 (11.0-82.0) U/L Blood Type Antibody Screen Crossmatch 06/28/17 06/28/17 Range/Units 07:41 07:41 WBC 7.9 (3.5-10.8) 10^3/ul RBC 2.29 L (4.0-5.4) 10^6/ul Hgb 7.9 L (14.0-18.0) g/dl Hct 23 L (42-52) % MCV 100 H (80-94) fL MCH 35 H (27-31) pg MCHC 35 (31-36) g/dl RDW 13 (10.5-15) % Plt Count 184 (150-450) 10^3/ul MPV 9 (7.4-10.4) um3 Neut % (Auto) 78.7 (38-83) % Lymph % (Auto) 10.9 L (25-47) % [place] % (Auto) 8.1 (1-9) % Eos % (Auto) 1.9 (0-6) % Baso % (Auto) 0.4 (0-2) % Absolute Neuts (auto) 6.2 (1.5-7.7) 10^3/ul Absolute Lymphs (auto) 0.9 L (1.0-4.8) 10^3/ul Absolute Monos (auto) 0.6 (0-0.8) 10^3/ul Absolute Eos (auto) 0.1 (0-0.6) 10^3/ul Absolute Basos (auto) 0 (0-0.2) 10^3/ul Absolute Nucleated RBC 0 10^3/ul Nucleated RBC % 0.1 INR (Anticoag Therapy) (0.77-1.02) APTT (26.0-36.3) seconds Sodium (133-145) mmol/L Potassium (3.5-5.0) mmol/L Chloride (101-111) mmol/L Carbon Dioxide (22-32) mmol/L Anion Gap (2-11) mmol/L BUN (6-24) mg/dL Creatinine (0.67-1.17) mg/dL Est GFR ( Amer) (>60) Est GFR (Non-Af Amer) (>60) BUN/Creatinine Ratio (8-20) Glucose (70-100) mg/dL Calcium (8.6-10.3) mg/dL Total Bilirubin (0.2-1.0) mg/dL AST (13-39) U/L ALT (7-52) U/L Alkaline Phosphatase (34-104) U/L Total Creatine Kinase (10-223) U/L C-Reactive Protein (< 5.00) mg/L B-Natriuretic Peptide ( - 100) pg/mL Total Protein (6.4-8.9) g/dL Albumin (3.2-5.2) g/dL Globulin (2-4) g/dL Albumin/Globulin Ratio (1-3) Lipase (11.0-82.0) U/L Blood Type A Positive Antibody Screen Negative Crossmatch See Detail Assess/Plan/Problems-Billing Assessment: 76 yo m with h/o RA, HTN, recurrent diverticular bleed presents with BRBPR - Patient Problems (1) Lower GI bleed Comment: Diverticular bleed noted in r colon on tagged RBC scan, s/p R colectomy by Dr. Otero on 06/29/17. Hb lower today-suspect post op and dilutional (2) Hypertension Comment: no home meds, currently normotensive (3) Syncope Comment: suspect vagal due to GI bleed and BM on 06/28/17 d/c telem (4) Anemia Comment: due to lower GI bleed, s/p 5 U PRBC transfusion this hospital stay (5) DVT prophylaxis Comment: SCDs in setting of LGIB will d/w surgery if heparin sc would be OK post op Status and Disposition: inpatient
--- NOTE | 2017-07-01 08:58 | PN ---
Progress Note - Progress Note Date of Service: 07/01/17 SOAP: Subjective: Pain is controlled. No N/V. No flatus. Objective: Vital Signs Temp 99.5 F 07/01/17 03:45 Pulse 80 07/01/17 03:45 Resp 18 07/01/17 05:00 BP 163/82 07/01/17 03:45 Pulse Ox 97 07/01/17 06:30 Gen: NAD Abd: incis c/d/i; no erythema; soft; tender incisions. Intake & Output 06/30/17 07/01/17 07/01/17 18:59 06:59 18:59 Intake Total 2830 1475 Output Total 1000 2980 Balance 1830 -1505 Intake: IV Fluids 1765 1155 LR 1765 1155 IVPB 105 Magnesium 105 Oral 960 320 Output: RONNY #1 30 Jeronimo 1000 2950 Other: # Bowel Movements 0 Laboratory Results - last 24 hr 06/28/17 06/30/17 07/01/17 07:41 04:44 05:11 WBC 8.7 RBC 2.20 L Hgb 7.3 L Hct 22 L MCV 98 H MCH 33 H MCHC 34 RDW 17 H Plt Count 186 MPV 8 Neut % (Auto) 77.4 Lymph % (Auto) 12.5 L [place] % (Auto) 8.6 Eos % (Auto) 1.2 Baso % (Auto) 0.3 Absolute Neuts (auto) 6.8 Absolute Lymphs (auto) 1.1 Absolute Monos (auto) 0.8 Absolute Eos (auto) 0.1 Absolute Basos (auto) 0 Absolute Nucleated RBC 0 Nucleated RBC % 0 Sodium 137 Potassium 4.2 Chloride 107 Carbon Dioxide 26 Anion Gap 4 BUN 15 Creatinine 0.99 Est GFR ( Amer) 94.5 Est GFR (Non-Af Amer) 73.5 BUN/Creatinine Ratio 15.2 Glucose 173 H Calcium 8.0 L Magnesium 1.8 L Crossmatch See Detail 07/01/17 05:11 WBC RBC Hgb Hct MCV MCH MCHC RDW Plt Count MPV Neut % (Auto) Lymph % (Auto) [place] % (Auto) Eos % (Auto) Baso % (Auto) Absolute Neuts (auto) Absolute Lymphs (auto) Absolute Monos (auto) Absolute Eos (auto) Absolute Basos (auto) Absolute Nucleated RBC Nucleated RBC % Sodium 137 Potassium 3.7 Chloride 106 Carbon Dioxide 28 Anion Gap 3 BUN 12 Creatinine 0.97 Est GFR ( Amer) 96.8 Est GFR (Non-Af Amer) 75.2 BUN/Creatinine Ratio 12.4 Glucose 107 H Calcium 7.8 L Magnesium 2.2 Crossmatch Assessment: POD#2 s/p lap R colon. Stable. Drop in H/H likely dilutional due to mobilization of fluid. Plan: Clears adv to full if tolerates. KVO IVF. Po pain meds. D/C KNOWLEDGE MANAGEMENT CONSULTANT when able. Incr activity.
[2017-07-01] MEDS: Ferrous Sulfate TAB* 325 MG PO SCH ×2 (09:25→20:40)
[2017-07-01] MEDS: oxyCODONE TAB* 5 MG TAB PO PRN ×2 (09:25→18:15)
[2017-07-01] MEDS: Saline NASAL SPRAY 0.65%* BTL BOTH NARES SCH ×2 (09:27→20:38)
[2017-07-02] MEDS: oxyCODONE TAB* 5 MG TAB PO PRN ×3 (02:37→23:48)
[2017-07-02 05:27] LABS: ABS Basophils 0 10^3/ul (0-0.2); ABS Eosinophils 0.1 10^3/ul (0-0.6); ABS Lymphocytes 0.7 10^3/ul (1.0-4.8); ABS Monocytes 0.7 10^3/ul (0-0.8); ABS Neutrophils 6.1 10^3/ul (1.5-7.7); ABS Nucleated RBC 0 10^3/ul; Eosinophil % 1.2 % (0-6); Hematocrit 24 % (42-52); Hemoglobin 8.1 g/dl (14.0-18.0); Lymphocyte % 9.3 % (25-47); Mean Corpuscular HGB Conc 34 g/dl (31-36); Mean Corpuscular Hemoglobin 33 pg (27-31); Mean Corpuscular Volume 98 fL (80-94); Mean Platelet Volume 9 um3 (7.4-10.4); Nucleated Red Blood Cells % 0; Platelet Count 240 10^3/ul (150-450); Red Blood Count 2.42 10^6/ul (4.0-5.4); Red Cell Distribution Width 17 % (10.5-15); White Blood Count 7.6 10^3/ul (3.5-10.8)
[2017-07-02 06:04] LABS: EGFR Non-African American 85.3 (>60)
--- NOTE | 2017-07-02 08:34 | PN ---
Subjective Date of Service: 07/02/17 Interval History: Pt c/o worsening colicky pain across his mid abdomen and burping. Passed flatus last night when he bet down Objective Active Medications: Acetaminophen (Tylenol Tab*) 650 mg PO Q4H PRN PRN Reason: FEVER/PAIN Ferrous Sulfate (Ferrous Sulfate Tab*) 325 mg PO BID [facility] Last Admin: 07/01/17 20:40 Dose: 325 mg Heparin Sodium (Porcine) (Heparin Vial(*)) 5,000 units SUBCUT Q8HR [facility] Morphine Sulfate (Morphine Cable Spooler Adult* 5 Mg/Ml) 30 mls @ 0 mls/hr FIELD HORTICULTURAL SPECIALTY GROWER .change Q24H [facility]; Per Protocol PRN Reason: Protocol Last Admin: 06/30/17 00:00 Dose: 1 mls/hr Dextrose/Lactated Ringer's (D5lr 1000 Ml Bag*) 1,000 mls @ 75 mls/hr IV PER RATE [facility] Ondansetron HCl (Zofran Inj*) 4 mg IV Q6H PRN PRN Reason: NAUSEA Last Admin: 07/01/17 05:25 Dose: 4 mg Ondansetron HCl (Zofran Inj*) 4 mg IV Q6H PRN PRN Reason: NAUSEA Oxycodone HCl (Roxycodone Tab*) 10 mg PO Q4H PRN PRN Reason: PAIN - MODERATE TO SEVERE Last Admin: 07/02/17 02:37 Dose: 10 mg Oxycodone HCl (Roxycodone Tab*) 5 mg PO Q4H PRN PRN Reason: PAIN - MILD TO MODERATE Last Admin: 07/01/17 18:15 Dose: 5 mg Sodium Chloride (Sodium Chloride 0.65% Nasal [place]*) 2 spray BOTH NARES BID [facility] Last Admin: 07/01/17 20:38 Dose: 2 spray Vital Signs - 8 hr 07/02/17 07/02/17 07/02/17 01:00 02:37 03:24 Temperature 98.6 F Pulse Rate 79 Respiratory 16 16 16 Rate Blood Pressure 147/69 (mmHg) O2 Sat by Pulse 97 98 Oximetry 07/02/17 07/02/17 07/02/17 05:00 05:20 06:45 Temperature Pulse Rate Respiratory 16 16 16 Rate Blood Pressure (mmHg) O2 Sat by Pulse 96 Oximetry 07/02/17 07:00 Temperature Pulse Rate Respiratory 16 Rate Blood Pressure (mmHg) O2 Sat by Pulse 96 Oximetry Oxygen Devices in Use Now: Nasal Cannula Appearance: 76 yo M in nAD, AAOx3 Eyes: No Scleral Icterus, PERRLA Ears/Nose/Mouth/Throat: NL Teeth, Lips, Gums, Mucous Membranes Moist Neck: NL Appearance and Movements; NL JVP, Trachea Midline Respiratory: Symmetrical Chest Expansion and Respiratory Effort, - - arlene bibasiliar crackles Cardiovascular: NL Sounds; No Murmurs; No JVD, RRR Abdominal: - - distended, tender close to incision sites, BS decreased on left and high pitched in R abd. Multiple incisions stapled no evidence of dehiscence Lymphatic: No Cervical Adenopathy Extremities: No Edema Skin: No Rash or Ulcers, No Nodules or Sclerosis Neurological: Alert and Oriented x 3, NL Muscle Strength and Tone Result Diagrams: 07/02/17 05:00 07/02/17 05:00 Additional Lab and Data: Lab Results 06/28/17 06/28/17 06/28/17 Range/Units 07:41 07:41 07:41 WBC (3.5-10.8) 10^3/ul RBC (4.0-5.4) 10^6/ul Hgb (14.0-18.0) g/dl Hct (42-52) % MCV (80-94) fL MCH (27-31) pg MCHC (31-36) g/dl RDW (10.5-15) % Plt Count (150-450) 10^3/ul MPV (7.4-10.4) um3 Neut % (Auto) (38-83) % Lymph % (Auto) (25-47) % [place] % (Auto) (1-9) % Eos % (Auto) (0-6) % Baso % (Auto) (0-2) % Absolute Neuts (auto) (1.5-7.7) 10^3/ul Absolute Lymphs (auto) (1.0-4.8) 10^3/ul Absolute Monos (auto) (0-0.8) 10^3/ul Absolute Eos (auto) (0-0.6) 10^3/ul Absolute Basos (auto) (0-0.2) 10^3/ul Absolute Nucleated RBC 10^3/ul Nucleated RBC % INR (Anticoag Therapy) 0.91 (0.77-1.02) APTT 30.7 (26.0-36.3) seconds Sodium 139 (133-145) mmol/L Potassium 4.0 (3.5-5.0) mmol/L Chloride 108 (101-111) mmol/L Carbon Dioxide 26 (22-32) mmol/L Anion Gap 5 (2-11) mmol/L BUN 19 (6-24) mg/dL Creatinine 1.00 (0.67-1.17) mg/dL Est GFR ( Amer) 93.4 (>60) Est GFR (Non-Af Amer) 72.6 (>60) BUN/Creatinine Ratio 19.0 (8-20) Glucose 108 H (70-100) mg/dL Calcium 8.9 (8.6-10.3) mg/dL Total Bilirubin 0.30 (0.2-1.0) mg/dL AST 21 (13-39) U/L ALT 16 (7-52) U/L Alkaline Phosphatase 42 (34-104) U/L Total Creatine Kinase 151 (10-223) U/L C-Reactive Protein 4.08 (< 5.00) mg/L B-Natriuretic Peptide 42 ( - 100) pg/mL Total Protein 5.8 L (6.4-8.9) g/dL Albumin 3.5 (3.2-5.2) g/dL Globulin 2.3 (2-4) g/dL Albumin/Globulin Ratio 1.5 (1-3) Lipase 27 (11.0-82.0) U/L Blood Type Antibody Screen Crossmatch 06/28/17 06/28/17 Range/Units 07:41 07:41 WBC 7.9 (3.5-10.8) 10^3/ul RBC 2.29 L (4.0-5.4) 10^6/ul Hgb 7.9 L (14.0-18.0) g/dl Hct 23 L (42-52) % MCV 100 H (80-94) fL MCH 35 H (27-31) pg MCHC 35 (31-36) g/dl RDW 13 (10.5-15) % Plt Count 184 (150-450) 10^3/ul MPV 9 (7.4-10.4) um3 Neut % (Auto) 78.7 (38-83) % Lymph % (Auto) 10.9 L (25-47) % [place] % (Auto) 8.1 (1-9) % Eos % (Auto) 1.9 (0-6) % Baso % (Auto) 0.4 (0-2) % Absolute Neuts (auto) 6.2 (1.5-7.7) 10^3/ul Absolute Lymphs (auto) 0.9 L (1.0-4.8) 10^3/ul Absolute Monos (auto) 0.6 (0-0.8) 10^3/ul Absolute Eos (auto) 0.1 (0-0.6) 10^3/ul Absolute Basos (auto) 0 (0-0.2) 10^3/ul Absolute Nucleated RBC 0 10^3/ul Nucleated RBC % 0.1 INR (Anticoag Therapy) (0.77-1.02) APTT (26.0-36.3) seconds Sodium (133-145) mmol/L Potassium (3.5-5.0) mmol/L Chloride (101-111) mmol/L Carbon Dioxide (22-32) mmol/L Anion Gap (2-11) mmol/L BUN (6-24) mg/dL Creatinine (0.67-1.17) mg/dL Est GFR ( Amer) (>60) Est GFR (Non-Af Amer) (>60) BUN/Creatinine Ratio (8-20) Glucose (70-100) mg/dL Calcium (8.6-10.3) mg/dL Total Bilirubin (0.2-1.0) mg/dL AST (13-39) U/L ALT (7-52) U/L Alkaline Phosphatase (34-104) U/L Total Creatine Kinase (10-223) U/L C-Reactive Protein (< 5.00) mg/L B-Natriuretic Peptide ( - 100) pg/mL Total Protein (6.4-8.9) g/dL Albumin (3.2-5.2) g/dL Globulin (2-4) g/dL Albumin/Globulin Ratio (1-3) Lipase (11.0-82.0) U/L Blood Type A Positive Antibody Screen Negative Crossmatch See Detail Assess/Plan/Problems-Billing Assessment: 76 yo m with h/o RA, HTN, recurrent diverticular bleed presents with BRBPR - Patient Problems (1) Lower GI bleed Comment: Diverticular bleed noted in r colon on tagged RBC scan, s/p R colectomy by Dr. Otero on 06/29/17. Hb stable (2) Hypertension Comment: no home meds, currently normotensive (3) Syncope Comment: suspect vagal due to GI bleed and BM on 06/28/17 (4) Anemia Comment: due to lower GI bleed, s/p 3 U PRBC transfusion this hospital stay (5) Ileus following gastrointestinal surgery Comment: pt developed ileus today. D/w surgery. will increase IVF, cont sips of clears. Encourage ambulation (6) DVT prophylaxis Comment: SCDs d/w surgery -will start heparin sc Status and Disposition: inpatient
--- NOTE | 2017-07-02 08:53 | SURGPN ---
Subjective - Introduction -: Admitted on: 06/28/17 Patient's surgical date: 06/29/17 Procedure completed: 06/29/17 - Medications -: Active Medications Generic Name Dose Route Start Last Admin Trade Name Fabi PRN Reason Stop Dose Admin Acetaminophen 650 mg 06/28/17 12:57 Tylenol Tab* PO Q4H PRN FEVER/PAIN Ferrous Sulfate 325 mg 06/28/17 21:00 07/01/17 20:40 Ferrous Sulfate Tab* PO 325 mg BID ALESSANDRA Administration Heparin Sodium (Porcine) 5,000 units 07/02/17 14:00 Heparin Vial(*) SUBCUT Q8HR ALESSANDRA Morphine Sulfate 30 mls @ 0 mls/hr 06/29/17 21:00 06/30/17 00:00 Morphine Physician Scientist Adult* 5 Mg/Ml BINDER OPERATOR 1 mls/hr .change Q24H ALESSANDRA Administration Protocol Per Protocol Dextrose/Lactated Ringer's 1,000 mls @ 75 mls/hr 07/02/17 09:00 D5lr 1000 Ml Bag* IV PER RATE [facility]ANDRA Ondansetron HCl 4 mg 06/28/17 12:57 07/01/17 05:25 Zofran Inj* IV 4 mg Q6H PRN Administration NAUSEA Ondansetron HCl 4 mg 06/29/17 20:43 Zofran Inj* IV Q6H PRN NAUSEA Oxycodone HCl 10 mg 07/01/17 08:49 07/02/17 02:37 Roxycodone Tab* PO 10 mg Q4H PRN Administration PAIN - MODERATE TO SEVERE Oxycodone HCl 5 mg 07/01/17 08:49 07/01/17 18:15 Roxycodone Tab* PO 5 mg Q4H PRN Administration PAIN - MILD TO MODERATE Sodium Chloride 2 spray 06/30/17 21:00 07/01/17 20:38 Sodium Chloride 0.65% Nasal [place]* BOTH NARES 2 spray BID ALESSANDRA Administration - Comments Comments: Patient seen and examined at bedside. Reports feeling bloated, but denies any nausea or vomiting. Burping, but no flatus yet. Has not ambulated, worried about getting dizzy upon standing. Tolerating clear liquids. Denies dyspnea or chest pain. Objective - Objective -: Awake and alert, comfortable in bed, in NAD - Intake and Output -: Intake & Output 06/30/17 07/01/17 07/02/1727/18 06:59 06:59 06:59 06:59 Intake Total 6465 4305 1149 Output Total 2300 3980 750 350 Balance 4165 325 399 -350 Intake: IV Fluids 5900 2920 684 HEXTEND 500 LR 4900 2920 684 hextend 500 IVPB 105 Magnesium 105 Oral 565 1280 465 Output: RONNY #1 30 Urine 275 350 Jeronimo 2200 3950 475 Estimated Blood Loss 100 Other: Estimated Void Medium # Bowel Movements 1 0 0 Estimated Stool Amount Medium # Voids 1 Surgical Physical Exam - Comments -: Vitals reviewed, Tmax 99.5, BP 147/69 Lungs CTA bilat. Heart RRR, no murmurs Abdomen soft, NT, mildly distended. Bowel sounds hypoactive. Incisions C/D/I. Ext. without edema Labs noted, H/H stable Assessment and Plan - Assessment -: A 76 y/o male, POD#3, s/p laparoscopic right colectomy due to lower GI bleed, hemodynamically stable Post-op ileus - Plan Additional Comments: Continue IVF, changed to D5 NS per medicine Ambulate as tolerated with assistance Clear liquids for now, awaiting bowel functions DVT prophylaxis, medicine to resume Heparin GI prophylaxis
[2017-07-02] MEDS ORDERED: D5LR 1000 ML BAG* 1,000 ML IV SCH (09:00)
[2017-07-02] MEDS ORDERED: Omeprazole CAP* 20 MG ONE (09:09)
[2017-07-02] MEDS: Omeprazole CAP* 20 MG PO SCH ×2 (09:29→21:52)
[2017-07-02] MEDS: Saline NASAL SPRAY 0.65%* BTL BOTH NARES SCH ×3 (09:29→21:52)
[2017-07-02] MEDS: Ferrous Sulfate TAB* 325 MG PO SCH ×2 (09:29→21:51)
--- NOTE | 2017-07-02 10:32 | RAD ---
HISTORY: Status post right colectomy COMPARISONS: September 22, 2014 VIEWS: Supine and left lateral decubitus views of the abdomen FINDINGS: BOWEL: There is distention and mild dilatation of small bowel with multiple differential air-fluid levels. CALCULI: There are no abnormal calculi. BONES AND SOFT TISSUES: There are no osseous abnormalities. OTHER FINDINGS: The lung bases are clear. There is no appreciable free intraperitoneal gas IMPRESSION: DISTENDED AND MILDLY DILATED LOOPS OF SMALL BOWEL CONSISTENT WITH EARLY OBSTRUCTION VERSUS ILEUS. RECOMMEND ATTENTION ON FOLLOW-UP IMAGING.
[2017-07-02] MEDS: Heparin VIAL(*) 5000 UNITS/ML VIAL (FIVE THOUSAND) SUBCUT SCH ×2 (14:56→21:55)
[2017-07-03 05:19] LABS: ABS Basophils 0 10^3/ul (0-0.2); ABS Eosinophils 0.1 10^3/ul (0-0.6); ABS Lymphocytes 0.7 10^3/ul (1.0-4.8); ABS Monocytes 0.9 10^3/ul (0-0.8); ABS Neutrophils 4.1 10^3/ul (1.5-7.7); ABS Nucleated RBC 0 10^3/ul; Eosinophil % 1.8 % (0-6); Hematocrit 25 % (42-52); Hemoglobin 8.7 g/dl (14.0-18.0); Lymphocyte % 11.4 % (25-47); Mean Corpuscular HGB Conc 34 g/dl (31-36); Mean Corpuscular Hemoglobin 33 pg (27-31); Mean Corpuscular Volume 96 fL (80-94); Mean Platelet Volume 9 um3 (7.4-10.4); Nucleated Red Blood Cells % 0; Platelet Count 255 10^3/ul (150-450); Red Blood Count 2.62 10^6/ul (4.0-5.4); Red Cell Distribution Width 16 % (10.5-15); White Blood Count 5.8 10^3/ul (3.5-10.8)
[2017-07-03 05:30] LABS: EGFR Non-African American 76.2 (>60)
[2017-07-03] MEDS: Heparin VIAL(*) 5000 UNITS/ML VIAL (FIVE THOUSAND) SUBCUT SCH ×3 (05:57→21:38)
[2017-07-03] MEDS: oxyCODONE TAB* 5 MG TAB PO PRN ×3 (06:00→22:40)
[2017-07-03] MEDS: Ferrous Sulfate TAB* 325 MG PO SCH ×2 (08:43→21:38)
[2017-07-03] MEDS: Omeprazole CAP* 20 MG PO SCH (08:44)
[2017-07-03] MEDS: Saline NASAL SPRAY 0.65%* BTL BOTH NARES SCH ×2 (08:44→21:36)
[2017-07-03] MEDS ORDERED: Bisacodyl SUPP* 10 MG SUPP PR ONE (09:07)
--- NOTE | 2017-07-03 09:18 | PN ---
Progress Note - Progress Note Date of Service: 07/03/17 SOAP: Subjective: He reports he felt less dizzy and walked after the transfusion yesterday. Last night he was dizzy again after taking oxycodone and walking. He denies flatus, BM, N/V, appetite today. Objective: Vital Signs Temp 98.9 F 07/03/17 07:38 Pulse 88 07/03/17 07:38 Resp 18 07/03/17 08:47 BP 153/73 07/03/17 07:38 Pulse Ox 96 07/03/17 07:38 Awake, alert Abd: -BS, distended, tender upper abd @ incisions. incis c/d/i; no erythema. Intake & Output 07/02/17 07/03/17 07/03/17 18:59 06:59 18:59 Intake Total 1703 1671 Output Total 450 600 Balance 1253 1071 Intake: IV Fluids 1103 D5LR 888 LR 215 Oral 600 1360 Packed Cells 311 Output: Urine 450 600 Laboratory Results - last 24 hr 07/02/17 07/03/17 07/03/17 18:04 04:47 04:47 WBC 5.8 RBC 2.62 L Hgb 8.7 L Hct 25 L MCV 96 H MCH 33 H MCHC 34 RDW 16 H Plt Count 255 MPV 9 Neut % (Auto) 71.0 Lymph % (Auto) 11.4 L [place] % (Auto) 15.3 H Eos % (Auto) 1.8 Baso % (Auto) 0.5 Absolute Neuts (auto) 4.1 Absolute Lymphs (auto) 0.7 L Absolute Monos (auto) 0.9 H Absolute Eos (auto) 0.1 Absolute Basos (auto) 0 Absolute Nucleated RBC 0 Nucleated RBC % 0 Sodium 134 Potassium 4.0 Chloride 102 Carbon Dioxide 27 Anion Gap 5 BUN 22 Creatinine 0.96 Est GFR ( Amer) 97.9 Est GFR (Non-Af Amer) 76.2 BUN/Creatinine Ratio 22.9 H Glucose 121 H Calcium 8.2 L Magnesium 2.1 Blood Type A Positive Antibody Screen Negative Crossmatch See Detail Assessment: A 76 y/o male, POD#4, s/p laparoscopic right colectomy due to lower GI bleed, hemodynamically stable Post-op ileus. Symptomatic anemia. Plan: Will try dulcolax. Will hold on stimulant laxatives po. Clears as tolerated. Hospitalist f/u appreciated.
[2017-07-03] MEDS: Docusate CAP* 100 MG PO SCH (09:55)
[2017-07-03] MEDS ORDERED: Hetastarch in NS* 200 ML IV ONE (10:00)
[2017-07-03] MEDS ORDERED: Senna TAB PO SCH (10:00)
[2017-07-03] MEDS: D5W 1/2 NS KCl 20 Meq 1000 ML* 1,000 ML IV SCH ×2 (10:27→21:26)
--- NOTE | 2017-07-03 11:51 | PN ---
Subjective Date of Service: 07/03/17 Interval History: complaint of LH/dizziness when sitting up. diaphoretic/sweating on his back. 4-5/10 "bloating" abdominal pain. with sharper pain with belching. No BM, no flatus. "ocular migraines" last night with "wavy" small area of central vision -> triangular shaped then resolved. Has every 6 months. no TORRES. was orthostatic upon documented [employer] testing yesterday and got 1u pRBC. 8.1-> 8.7 Objective Active Medications: Acetaminophen (Tylenol Tab*) 650 mg PO Q4H PRN PRN Reason: FEVER/PAIN Docusate Sodium (Colace Cap*) 100 mg PO DAILY [facility] Last Admin: 07/03/17 09:55 Dose: 100 mg Ferrous Sulfate (Ferrous Sulfate Tab*) 325 mg PO BID [facility] Last Admin: 07/03/17 08:43 Dose: 325 mg Heparin Sodium (Porcine) (Heparin Vial(*)) 5,000 units SUBCUT Q8HR [facility] Last Admin: 07/03/17 05:57 Dose: 5,000 units Potassium Chloride/Dextrose (D5w 1/2 Ns Kcl 20 Meq 1000 Ml*) 1,000 mls @ 125 mls/hr IV PER RATE [facility] Last Admin: 07/03/17 10:27 Dose: 125 mls/hr Hetastarch/Sodium Chloride (Hespan*) 200 mls @ 100 mls/hr IV ONCE ONE Stop: 07/03/17 11:59 Last Admin: 07/03/17 11:40 Dose: 100 mls/hr Omeprazole (Prilosec Cap*) 20 mg PO DAILY@0600 [facility] Ondansetron HCl (Zofran Inj*) 4 mg IV Q6H PRN PRN Reason: NAUSEA Oxycodone HCl (Roxycodone Tab*) 5 mg PO Q4H PRN PRN Reason: PAIN - MODERATE TO SEVERE Sodium Chloride (Sodium Chloride 0.65% Nasal [place]*) 2 spray BOTH NARES BID [facility] Last Admin: 07/03/17 08:44 Dose: 2 spray Vital Signs - 8 hr 07/03/17 07/03/17 07/03/17 04:26 06:00 07:38 Temperature 98.6 F 98.9 F Pulse Rate 83 88 Respiratory 16 16 16 Rate Blood Pressure 140/67 153/73 (mmHg) O2 Sat by Pulse 97 96 Oximetry 07/03/17 07/03/17 08:00 08:47 Temperature Pulse Rate Respiratory 18 18 Rate Blood Pressure (mmHg) O2 Sat by Pulse Oximetry Oxygen Devices in Use Now: Nasal Cannula Appearance: NAD but pauses for belches frequently. Ears/Nose/Mouth/Throat: NL Teeth, Lips, Gums, Mucous Membranes Moist Respiratory: Symmetrical Chest Expansion and Respiratory Effort, Clear to Auscultation Cardiovascular: NL Sounds; No Murmurs; No JVD, RRR Abdominal: - - distended. slightly tender epigastric. no rebound or guarding. midline dinah well approximated. Extremities: No Edema, No Clubbing, Cyanosis Skin: No Rash or Ulcers, No Nodules or Sclerosis Neurological: Alert and Oriented x 3, NL Sensation, NL Muscle Strength and Tone , - - CN II-XII intact. Nutrition: Taking PO's Result Diagrams: 07/03/17 04:47 07/03/17 04:47 Additional Lab and Data: Microbiology 06/28/17 07:25 Stool Stool Occult Blood ([facility]) - Final Assess/Plan/Problems-Billing Assessment: 76 yo m with h/o RA, HTN, recurrent diverticular bleed presents with BRBPR and anemia. now s/p right colectomy 06/29/17. c/b post op ileus. Orthostatic with LH 07/02. - Patient Problems (1) Ileus following gastrointestinal surgery Current Visit: Yes Status: Acute Code(s): K91.30 - POSTPROC INTESTINAL OBST , UNSP TO PARTIAL VERSUS COMPLETE SNOMED Code(s): 450119104 Comment: D/w surgery. cont sips of clears Encourage ambulation docusate suppository. no senna per surgery. (2) Orthostatic dizziness Current Visit: Yes Status: Acute Code(s): R42 - DIZZINESS AND GIDDINESS SNOMED Code(s): 036201802 Comment: repeat orthostatics. BP fell 27 points and HR increased 18 bpm from lying to standing yesterday. IVF. s/p pRBC yesterday. (3) Anemia Current Visit: Yes Status: Acute Code(s): D64.9 - ANEMIA, UNSPECIFIED SNOMED Code(s): 755268172 Comment: due to lower GI bleed, recent colonoscopy with diverticulosis. Now s /p right hemicolectomy s/p 4 U PRBC transfusion this hospital stay (4) Lower GI bleed Current Visit: No Status: Acute Code(s): K92.2 - GASTROINTESTINAL HEMORRHAGE , UNSPECIFIED SNOMED Code(s): 55231152 Comment: Diverticular bleed noted in r colon on tagged RBC scan, s/p R colectomy by Dr. Otero on 06/29/17. Hb 8.7 from 8.1 Status and Disposition: inpatient Attending: Michael Sarabia
[2017-07-03] MEDS: Ondansetron INJ* 2 MG/ML VIAL IV PRN (21:54)
[2017-07-03] MEDS: Acetaminophen TAB* 325 MG PO PRN (21:54)
[2017-07-04] MEDS: D5W 1/2 NS KCl 20 Meq 1000 ML* 1,000 ML IV SCH ×3 (05:30→21:51)
[2017-07-04] MEDS: Omeprazole CAP* 20 MG PO SCH (05:31)
[2017-07-04] MEDS: Acetaminophen TAB* 325 MG PO PRN (05:32)
[2017-07-04] MEDS: Heparin VIAL(*) 5000 UNITS/ML VIAL (FIVE THOUSAND) SUBCUT SCH ×3 (05:33→21:59)
[2017-07-04] MEDS: oxyCODONE TAB* 5 MG TAB PO PRN (07:52)
[2017-07-04 08:09] LABS: ABS Basophils 0 10^3/ul (0-0.2); ABS Eosinophils 0.4 10^3/ul (0-0.6); ABS Lymphocytes 0.5 10^3/ul (1.0-4.8); ABS Neutrophils 3.8 10^3/ul (1.5-7.7); ABS Nucleated RBC 0 10^3/ul; Eosinophil % 7.4 % (0-6); Hematocrit 26 % (42-52); Mean Corpuscular HGB Conc 34 g/dl (31-36); Mean Corpuscular Hemoglobin 33 pg (27-31); Mean Corpuscular Volume 96 fL (80-94); Mean Platelet Volume 8 um3 (7.4-10.4); Nucleated Red Blood Cells % 0.1; Platelet Count 347 10^3/ul (150-450); Red Blood Count 2.73 10^6/ul (4.0-5.4); Red Cell Distribution Width 16 % (10.5-15); White Blood Count 5.8 10^3/ul (3.5-10.8)
[2017-07-04] MEDS: Ferrous Sulfate TAB* 325 MG PO SCH ×2 (08:35→21:58)
[2017-07-04] MEDS: Docusate CAP* 100 MG PO SCH (08:35)
[2017-07-04] MEDS: Saline NASAL SPRAY 0.65%* BTL BOTH NARES SCH ×3 (08:36→21:59)
--- NOTE | 2017-07-04 09:27 | PN ---
Progress Note - Progress Note Date of Service: 07/04/17 Note: Surgery Mr. Barajas says he feels "about the same as yesterday". He passed some flatus this morning with some bloody discharge. He is tolerating clear liquids without nausea or vomiting, but he is belching. Vital Signs 07/03/17 07/03/17 07/03/17 11:24 15:41 16:00 Temperature 99.0 F Pulse Rate 87 85 Respiratory 16 20 Rate Blood Pressure 161/72 148/79 (mmHg) O2 Sat by Pulse 93 94 94 Oximetry 07/03/17 07/03/17 07/03/17 18:12 19:38 21:30 Temperature 99.4 F Pulse Rate 88 Respiratory 18 24 18 Rate Blood Pressure 156/71 (mmHg) O2 Sat by Pulse 94 Oximetry 07/03/17 07/03/17 07/03/17 21:42 22:40 23:28 Temperature 99.7 F Pulse Rate 90 Respiratory 18 18 16 Rate Blood Pressure 163/72 (mmHg) O2 Sat by Pulse 92 Oximetry 07/04/17 07/04/17 07/04/17 01:00 02:29 07:43 Temperature 98.9 F 99.4 F Pulse Rate 103 82 Respiratory 16 24 16 Rate Blood Pressure 144/65 159/79 (mmHg) O2 Sat by Pulse 95 94 Oximetry 07/04/17 07/04/17 07:52 07:53 Temperature Pulse Rate Respiratory 18 18 Rate Blood Pressure (mmHg) O2 Sat by Pulse 95 Oximetry Abd: some BS, distended, mildly tender near incisions. Intake & Output 07/03/17 07/04/17 07/04/17 22:59 06:59 14:59 Intake Total 1575 400 Output Total 175 225 Balance 1400 175 Intake: IV Fluids 1195 D5W 1/2 NS 20 meq KCL 995 hetastarch 200 Oral 380 400 Output: Urine 175 225 Laboratory Results - last 24 hr 07/04/17 07:58 WBC 5.8 RBC 2.73 L Hgb 9.0 L Hct 26 L MCV 96 H MCH 33 H MCHC 34 RDW 16 H Plt Count 347 MPV 8 Neut % (Auto) 66.3 Lymph % (Auto) 9.0 L [place] % (Auto) 16.8 H Eos % (Auto) 7.4 H Baso % (Auto) 0.5 Absolute Neuts (auto) 3.8 Absolute Lymphs (auto) 0.5 L Absolute Monos (auto) 1.0 H Absolute Eos (auto) 0.4 Absolute Basos (auto) 0 Absolute Nucleated RBC 0 Nucleated RBC % 0.1 POD#5 Making some progress. Will wait for more robust GI function before advancing diet.
--- NOTE | 2017-07-04 09:27 | PN ---
Subjective Date of Service: 07/04/17 Interval History: Walked unit, whole lap. Some dizziness sitting in chair. no world spinning. Hgb 9.0 passed flatus and some bloody discharge last night. Belching. Abdominal pain. some spitting up bile in sleep last night. orthostatic yesterday. on RA. some SOB after walk. Objective Active Medications: Acetaminophen (Tylenol Tab*) 650 mg PO Q4H PRN PRN Reason: FEVER/PAIN Last Admin: 07/04/17 05:32 Dose: 650 mg Docusate Sodium (Colace Cap*) 100 mg PO DAILY [facility] Last Admin: 07/04/17 08:35 Dose: 100 mg Ferrous Sulfate (Ferrous Sulfate Tab*) 325 mg PO BID [facility] Last Admin: 07/04/17 08:35 Dose: 325 mg Heparin Sodium (Porcine) (Heparin Vial(*)) 5,000 units SUBCUT Q8HR [facility] Last Admin: 07/04/17 05:33 Dose: 5,000 units Potassium Chloride/Dextrose (D5w 1/2 Ns Kcl 20 Meq 1000 Ml*) 1,000 mls @ 125 mls/hr IV PER RATE [facility] Last Admin: 07/04/17 05:30 Dose: 125 mls/hr Omeprazole (Prilosec Cap*) 20 mg PO DAILY@0600 [facility] Last Admin: 07/04/17 05:31 Dose: 20 mg Ondansetron HCl (Zofran Inj*) 4 mg IV Q6H PRN PRN Reason: NAUSEA Last Admin: 07/03/17 21:54 Dose: 4 mg Oxycodone HCl (Roxycodone Tab*) 5 mg PO Q4H PRN PRN Reason: PAIN - MODERATE TO SEVERE Last Admin: 07/04/17 07:52 Dose: 5 mg Sodium Chloride (Sodium Chloride 0.65% Nasal [place]*) 2 spray BOTH NARES BID [facility] Last Admin: 07/04/17 08:37 Dose: Not Given Vital Signs - 8 hr 07/04/17 07/04/17 07/04/17 02:29 07:43 07:52 Temperature 98.9 F 99.4 F Pulse Rate 103 82 Respiratory 24 16 18 Rate Blood Pressure 144/65 159/79 (mmHg) O2 Sat by Pulse 95 94 Oximetry 07/04/17 07:53 Temperature Pulse Rate Respiratory 18 Rate Blood Pressure (mmHg) O2 Sat by Pulse 95 Oximetry Oxygen Devices in Use Now: None Appearance: NAD Eyes: No Scleral Icterus, PERRLA Ears/Nose/Mouth/Throat: NL Teeth, Lips, Gums, Mucous Membranes Moist Neck: NL Appearance and Movements; NL JVP, Trachea Midline Respiratory: Symmetrical Chest Expansion and Respiratory Effort, Clear to Auscultation Cardiovascular: NL Sounds; No Murmurs; No JVD, RRR Abdominal: - - distended, mildy tender to palpation. no rebound or guarding. Extremities: No Edema, No Clubbing, Cyanosis Skin: No Rash or Ulcers, No Nodules or Sclerosis Neurological: Alert and Oriented x 3, NL Muscle Strength and Tone Result Diagrams: 07/04/17 07:58 07/03/17 04:47 Additional Lab and Data: Laboratory Results - last 24 hr 07/04/17 07:58 WBC 5.8 RBC 2.73 L Hgb 9.0 L Hct 26 L MCV 96 H MCH 33 H MCHC 34 RDW 16 H Plt Count 347 MPV 8 Neut % (Auto) 66.3 Lymph % (Auto) 9.0 L [place] % (Auto) 16.8 H Eos % (Auto) 7.4 H Baso % (Auto) 0.5 Absolute Neuts (auto) 3.8 Absolute Lymphs (auto) 0.5 L Absolute Monos (auto) 1.0 H Absolute Eos (auto) 0.4 Absolute Basos (auto) 0 Absolute Nucleated RBC 0 Nucleated RBC % 0.1 Microbiology and Other Data: Microbiology 06/28/17 07:25 Stool Stool Occult Blood ([facility]) - Final Assess/Plan/Problems-Billing Assessment: 76 yo m with h/o RA, HTN, recurrent diverticular bleed presents with BRBPR and anemia s/p pRBC transfusions. now s/p right colectomy 06/29/17 PM. c/b post op ileus. Orthostatic with LH 07/02 and 07/03. - Patient Problems (1) Ileus following gastrointestinal surgery Current Visit: Yes Status: Acute Code(s): K91.30 - POSTPROC INTESTINAL OBST , UNSP TO PARTIAL VERSUS COMPLETE SNOMED Code(s): 811440476 Comment: Encourage ambulation frequently. s/p docusate suppository. no senna yet per surgery given recent surgery docusate daily. ?enema (2) Orthostatic dizziness Current Visit: Yes Status: Acute Code(s): R42 - DIZZINESS AND GIDDINESS SNOMED Code(s): 295365598 Comment: orthostatics: 07/02: BP fell 27 points and HR increased 18 bpm from lying to standing yesterday. IVF. 07/03 BP fell 26 points and HR increased 13 bpm s/p pRBC yesterday. 07/02 continue IVF (3) Anemia Current Visit: Yes Status: Acute Code(s): D64.9 - ANEMIA, UNSPECIFIED SNOMED Code(s): 938393258 Comment: due to lower GI bleed, recent colonoscopy with diverticulosis. Now s /p right hemicolectomy s/p 4 U PRBC transfusion this hospital stay hgb 9.0 stable. will add iron panel and ferritin. was started on iron supplements at admission. (4) Lower GI bleed Current Visit: No Status: Acute Code(s): K92.2 - GASTROINTESTINAL HEMORRHAGE , UNSPECIFIED SNOMED Code(s): 39788303 Comment: Diverticular bleed noted in r colon on tagged RBC scan, s/p R colectomy by Dr. Otero on 06/29/17. Hb 9.0 Status and Disposition: inpatient. PT ordered. Attending: Michael Sarabia
[2017-07-04] MEDS: Ondansetron INJ* 2 MG/ML VIAL IV PRN (12:49)
[2017-07-04] MEDS ORDERED: Ondansetron TAB* 4 MG PO ONE (14:50)
[2017-07-04] MEDS: Morphine INJ* 2 MG/ML 1 ML SYRINGE (TWO MG - NEW SYRINGE VERSION) IV PRN (21:53)
[2017-07-05] MEDS: Phenol 1.4% Spray* 177 ML BTL MT PRN ×5 (01:47→21:18)
[2017-07-05] MEDS: Morphine INJ* 2 MG/ML 1 ML SYRINGE (TWO MG - NEW SYRINGE VERSION) IV PRN ×4 (01:49→21:19)
[2017-07-05] MEDS: Ondansetron INJ* 2 MG/ML VIAL IV PRN ×3 (01:49→21:17)
[2017-07-05] MEDS: D5W 1/2 NS KCl 20 Meq 1000 ML* 1,000 ML IV SCH ×3 (05:58→22:33)
[2017-07-05] MEDS: Heparin VIAL(*) 5000 UNITS/ML VIAL (FIVE THOUSAND) SUBCUT SCH ×3 (05:59→21:21)
[2017-07-05] MEDS: Omeprazole CAP* 20 MG PO SCH (06:17)
[2017-07-05 06:42] LABS: ABS Basophils 0 10^3/ul (0-0.2); ABS Eosinophils 0.5 10^3/ul (0-0.6); ABS Lymphocytes 0.6 10^3/ul (1.0-4.8); ABS Monocytes 1.2 10^3/ul (0-0.8); ABS Neutrophils 4.3 10^3/ul (1.5-7.7); ABS Nucleated RBC 0 10^3/ul; Eosinophil % 7.4 % (0-6); Hematocrit 25 % (42-52); Hemoglobin 8.5 g/dl (14.0-18.0); Mean Corpuscular HGB Conc 34 g/dl (31-36); Mean Corpuscular Hemoglobin 33 pg (27-31); Mean Corpuscular Volume 95 fL (80-94); Mean Platelet Volume 8 um3 (7.4-10.4); Nucleated Red Blood Cells % 0.2; Platelet Count 387 10^3/ul (150-450); Red Blood Count 2.61 10^6/ul (4.0-5.4); Red Cell Distribution Width 16 % (10.5-15); White Blood Count 6.6 10^3/ul (3.5-10.8)
[2017-07-05] MEDS: Saline NASAL SPRAY 0.65%* BTL BOTH NARES SCH ×2 (07:24→21:16)
[2017-07-05] MEDS: Ferrous Sulfate TAB* 325 MG PO SCH ×2 (07:24→21:16)
[2017-07-05] MEDS: Docusate CAP* 100 MG PO SCH (07:24)
--- NOTE | 2017-07-05 11:52 | PN ---
Progress Note - Progress Note Date of Service: 07/05/17 SOAP: Subjective: Patient seen and examined at bedside. Reports feeling a little better after NG- tube placed yesterday. Still afraid to get up and ambulate, feels dizzy at times. Denies headaches, chest pain or SOB. Objective: Awake and alert, comfortable in bed Vitals reviewed, Tmax 100.2 Abdomen soft, mildly distended, mild incisional tenderness. No guarding or rigidity. Bowel sounds are hypoactive. Labs noted, H/H stable I/O's noted, over 1500 cc NG output yesterday. Assessment: POD#6, s/p laparoscopic assisted right colectomy Plan: Post-op ileus, continue NG-tube decompression Ambulate as tolerated Anemia of blood loss, hemodynamically stable
--- NOTE | 2017-07-05 18:59 | PN ---
Subjective Date of Service: 07/05/17 Interval History: NGT placed after copious bilious vomiting yesterday afternoon. Throat discomfort but better abdominal bloating sensations. 4 spurts of flatus. no BM. slightly light headed still. Objective Active Medications: Acetaminophen (Tylenol Tab*) 650 mg PO Q4H PRN PRN Reason: FEVER/PAIN Last Admin: 07/04/17 05:32 Dose: 650 mg Docusate Sodium (Colace Cap*) 100 mg PO DAILY [facility] Last Admin: 07/05/17 07:24 Dose: Not Given Ferrous Sulfate (Ferrous Sulfate Tab*) 325 mg PO BID [facility] Last Admin: 07/05/17 07:24 Dose: Not Given Heparin Sodium (Porcine) (Heparin Vial(*)) 5,000 units SUBCUT Q8HR [facility] Last Admin: 07/05/17 13:45 Dose: 5,000 units Potassium Chloride/Dextrose (D5w 1/2 Ns Kcl 20 Meq 1000 Ml*) 1,000 mls @ 125 mls/hr IV PER RATE [facility] Last Admin: 07/05/17 14:38 Dose: 125 mls/hr Morphine Sulfate (Morphine Inj (Syringe)*) 2 mg IV Q4H PRN PRN Reason: PAIN - MILD Last Admin: 07/05/17 16:40 Dose: 2 mg Omeprazole (Prilosec Cap*) 20 mg PO DAILY@0600 [facility] Last Admin: 07/05/17 06:17 Dose: Not Given Ondansetron HCl (Zofran Inj*) 4 mg IV Q6H PRN PRN Reason: NAUSEA Last Admin: 07/05/17 11:01 Dose: 4 mg Oxycodone HCl (Roxycodone Tab*) 5 mg PO Q4H PRN PRN Reason: PAIN - MODERATE TO SEVERE Last Admin: 07/04/17 07:52 Dose: 5 mg Phenol/Menthol (Chloroseptic Throat [place]*) 1 spray MT TID PRN PRN Reason: SORE THROAT Last Admin: 07/05/17 16:37 Dose: 1 spray Sodium Chloride (Sodium Chloride 0.65% Nasal [place]*) 2 spray BOTH NARES BID [facility] Last Admin: 07/05/17 07:24 Dose: Not Given Vital Signs - 8 hr 07/05/17 07/05/17 07/05/17 11:03 11:28 12:22 Temperature 99.0 F Pulse Rate 74 Respiratory 18 18 18 Rate Blood Pressure 126/54 (mmHg) O2 Sat by Pulse 94 Oximetry 07/05/17 07/05/17 07/05/17 14:49 15:33 16:40 Temperature 99.0 F Pulse Rate 81 Respiratory 16 18 Rate Blood Pressure 127/62 (mmHg) O2 Sat by Pulse 94 95 Oximetry 07/05/17 17:41 Temperature Pulse Rate Respiratory 18 Rate Blood Pressure (mmHg) O2 Sat by Pulse Oximetry Oxygen Devices in Use Now: None Appearance: NAD Eyes: No Scleral Icterus, PERRLA Ears/Nose/Mouth/Throat: NL Teeth, Lips, Gums, Mucous Membranes Moist Neck: NL Appearance and Movements; NL JVP Respiratory: Symmetrical Chest Expansion and Respiratory Effort, Clear to Auscultation Cardiovascular: NL Sounds; No Murmurs; No JVD, RRR Abdominal: - - soft, distended. no BS. minimally tender. dinah well approximated. Extremities: No Edema, No Clubbing, Cyanosis Skin: No Rash or Ulcers, No Nodules or Sclerosis Neurological: Alert and Oriented x 3, NL Muscle Strength and Tone Lines/Tubes/Other Access: Clean, Dry and Intact Naso-enteral Tube Result Diagrams: 07/05/17 06:24 07/03/17 04:47 Additional Lab and Data: Laboratory Results - last 24 hr 07/05/17 06:24 WBC 6.6 RBC 2.61 L Hgb 8.5 L Hct 25 L MCV 95 H MCH 33 H MCHC 34 RDW 16 H Plt Count 387 MPV 8 Neut % (Auto) 65.6 Lymph % (Auto) 9.0 L [place] % (Auto) 17.5 H Eos % (Auto) 7.4 H Baso % (Auto) 0.5 Absolute Neuts (auto) 4.3 Absolute Lymphs (auto) 0.6 L Absolute Monos (auto) 1.2 H Absolute Eos (auto) 0.5 Absolute Basos (auto) 0 Absolute Nucleated RBC 0 Nucleated RBC % 0.2 Microbiology and Other Data: Microbiology 06/28/17 07:25 Stool Stool Occult Blood ([facility]) - Final Assess/Plan/Problems-Billing Assessment: 76 yo m with h/o RA, HTN, recurrent diverticular bleed presents with BRBPR and ACUTE anemia s/p pRBC transfusions. now s/p right colectomy 06/29/17 PM. c/b post op ileus. Orthostatic with LH 07/02 and 07/03. Now NGT for continued ileus vs SBO. - Patient Problems (1) Ileus following gastrointestinal surgery Current Visit: Yes Status: Acute Code(s): K91.30 - POSTPROC INTESTINAL OBST , UNSP TO PARTIAL VERSUS COMPLETE SNOMED Code(s): 935986141 Comment: Concern for more SBO than ileus as etiology. Now needing NGT after bilious vomiting. Consideration for CT abd but will defer to surgical service. Encourage ambulation frequently. s/p docusate suppository. no senna yet per surgery given recent surgery docusate daily. (2) Orthostatic dizziness Current Visit: Yes Status: Acute Code(s): R42 - DIZZINESS AND GIDDINESS SNOMED Code(s): 640953748 Comment: orthostatics: 07/02: BP fell 27 points and HR increased 18 bpm from lying to standing yesterday. IVF. 07/03 BP fell 26 points and HR increased 13 bpm s/p pRBC 07/02 continue IVF (3) Anemia Current Visit: Yes Status: Acute Code(s): D64.9 - ANEMIA, UNSPECIFIED SNOMED Code(s): 166952080 Comment: ACUTE anemia present on presentation due to lower GI bleed, recent colonoscopy with diverticulosis. Now s/p right hemicolectomy s/p 4 U PRBC transfusion this hospital stay hgb 8.5 stable. iron <15, sat 6% and ferritin 263. was started on iron supplements at admission. Consider IV iron. (4) Lower GI bleed Current Visit: No Status: Acute Code(s): K92.2 - GASTROINTESTINAL HEMORRHAGE , UNSPECIFIED SNOMED Code(s): 02113489 Comment: Diverticular bleed noted in r colon on tagged RBC scan, s/p R colectomy by Dr. Otero on 06/29/17. Status and Disposition: inpatient.
[2017-07-06] MEDS ORDERED: Acetaminophen IV 1GM/100ML * 1,000 MG/100 ML VIAL IVPB ONE (04:00)
[2017-07-06 04:50] LABS: ABS Basophils 0 10^3/ul (0-0.2); ABS Eosinophils 0.3 10^3/ul (0-0.6); ABS Lymphocytes 0.6 10^3/ul (1.0-4.8); ABS Monocytes 1.5 10^3/ul (0-0.8); ABS Neutrophils 4.7 10^3/ul (1.5-7.7); ABS Nucleated RBC 0 10^3/ul; Eosinophil % 4.1 % (0-6); Hematocrit 24 % (42-52); Hemoglobin 8.3 g/dl (14.0-18.0); Lymphocyte % 8.3 % (25-47); Mean Corpuscular HGB Conc 34 g/dl (31-36); Mean Corpuscular Hemoglobin 32 pg (27-31); Mean Corpuscular Volume 94 fL (80-94); Mean Platelet Volume 8 um3 (7.4-10.4); Nucleated Red Blood Cells % 0.1; Platelet Count 389 10^3/ul (150-450); Red Blood Count 2.58 10^6/ul (4.0-5.4); Red Cell Distribution Width 16 % (10.5-15); White Blood Count 7.2 10^3/ul (3.5-10.8)
[2017-07-06] MEDS: Ondansetron INJ* 2 MG/ML VIAL IV PRN (05:29)
[2017-07-06] MEDS: Morphine INJ* 2 MG/ML 1 ML SYRINGE (TWO MG - NEW SYRINGE VERSION) IV PRN ×2 (05:31→21:41)
[2017-07-06] MEDS: Heparin VIAL(*) 5000 UNITS/ML VIAL (FIVE THOUSAND) SUBCUT SCH ×3 (05:32→21:36)
[2017-07-06] MEDS: Omeprazole CAP* 20 MG PO SCH (05:33)
[2017-07-06] MEDS: D5W 1/2 NS KCl 20 Meq 1000 ML* 1,000 ML IV SCH ×2 (06:21→15:44)
--- NOTE | 2017-07-06 08:15 | PN ---
Progress Note - Progress Note Date of Service: 07/06/17 SOAP: Subjective: He reports he had a bad night. He was [place] on and had dark, bloody BMs. He also felt dizzy at the time. His pain is mostly in his throat ("9/10") and his abdomen is about "5/10." He also reports he had bile "in my nose" last night. Objective: Vital Signs Temp 99.2 F 07/06/17 04:46 Pulse 88 07/06/17 03:34 Resp 16 07/06/17 06:48 BP 149/67 07/06/17 03:34 Pulse Ox 93 07/06/17 03:34 Tmax of 101.[address] with bilious o/p Abd: distended, firm; incisions c/d/i, no erythema. Intake & Output 07/05/17 07/06/17 07/06/17 18:59 06:59 18:59 Intake Total 942 2027 Output Total 1100 1400 Balance -158 627 Intake: IV Fluids 1927 D5W 1/2 NS 20 meq KCL 1927 IVPB 942 100 D5W 1/2 NS 20 meq KCL 942 IV Tylenol 100 Oral 0 0 Output: NG Tube Drainage Amount 475 900 Urine 625 500 Laboratory Results - last 24 hr 07/06/17 04:28 WBC 7.2 RBC 2.58 L Hgb 8.3 L Hct 24 L MCV 94 MCH 32 H MCHC 34 RDW 16 H Plt Count 389 MPV 8 Neut % (Auto) 65.8 Lymph % (Auto) 8.3 L [place] % (Auto) 21.4 H Eos % (Auto) 4.1 Baso % (Auto) 0.4 Absolute Neuts (auto) 4.7 Absolute Lymphs (auto) 0.6 L Absolute Monos (auto) 1.5 H Absolute Eos (auto) 0.3 Absolute Basos (auto) 0 Absolute Nucleated RBC 0 Nucleated RBC % 0.1 Assessment: POD#7 s/p lap R colon for LGIB. Passing old blood, but still appears to have ileus. Fever Plan: Cont NGT. Check CXR/AXR. DVT prophylaxis. Await return of GI fct.
[2017-07-06] MEDS: Docusate CAP* 100 MG PO SCH (08:39)
[2017-07-06] MEDS: Ferrous Sulfate TAB* 325 MG PO SCH ×2 (08:39→19:49)
--- NOTE | 2017-07-06 10:03 | RAD ---
HISTORY: Ileus versus small bowel obstruction COMPARISONS: July 02, 2017 VIEWS: Frontal supine and upright views of the abdomen FINDINGS: BOWEL: There is distention and dilatation of small bowel loops with multiple differential air-fluid levels and a paucity of distal bowel gas. The degree of dilatation has increased compared to the previous examination. CALCULI: There are no abnormal calculi. BONES AND SOFT TISSUES: Degenerative changes are noted. OTHER FINDINGS: The lung bases are clear. There is no subphrenic gas. A gastric tube is noted. The tip is in a prepyloric position. IMPRESSION: SMALL BOWEL OBSTRUCTION.
--- NOTE | 2017-07-06 10:07 | RAD ---
HISTORY: Fever COMPARISONS: Abdomen series dated July 06, 2017 VIEWS: 4: Frontal dual-energy and lateral views of the chest. FINDINGS: CARDIOMEDIASTINAL SILHOUETTE: The cardiomediastinal silhouette is normal. FIDE: The fide are normal. PLEURA: The costophrenic angles are sharp. No pleural abnormalities are noted. LUNG PARENCHYMA: The lungs are clear. ABDOMEN: As noted on the abdomen series, there are dilated loops of small bowel. BONES AND SOFT TISSUES: Degenerative changes are noted along the spine. OTHER: A gastric tube is noted with the tip in a prepyloric position. IMPRESSION: NO ACTIVE CARDIOPULMONARY DISEASE.
[2017-07-06] MEDS: Saline NASAL SPRAY 0.65%* BTL BOTH NARES SCH ×2 (10:13→19:49)
[2017-07-06] MEDS: Phenol 1.4% Spray* 177 ML BTL MT PRN ×3 (10:22→19:48)
[2017-07-06] MEDS: TPN* 24 HR with D10W 1000 ML BAG* 1,000 ML, Amino Acid Infusion 10%* 850 ML, Sterile Wa... IV SCH ×12 (19:14)
--- NOTE | 2017-07-06 21:33 | PN ---
Subjective Date of Service: 07/06/17 Interval History: wiped out, poor sleep. Encouraged though that he began to have multiple "purple " "bile like" BMs after he felt his "abdomen shift" as he was getting ABD xray this AM. per RN note, dark red BMs large then small volume. Febrile 101.5 abd xray with e/o of worsening small bowel obstruction. Objective Active Medications: Acetaminophen (Tylenol Tab*) 650 mg PO Q4H PRN PRN Reason: FEVER/PAIN Last Admin: 07/04/17 05:32 Dose: 650 mg Docusate Sodium (Colace Cap*) 100 mg PO DAILY [facility] Last Admin: 07/06/17 08:39 Dose: Not Given Ferrous Sulfate (Ferrous Sulfate Tab*) 325 mg PO BID [facility] Last Admin: 07/06/17 19:49 Dose: Not Given Heparin Sodium (Porcine) (Heparin Vial(*)) 5,000 units SUBCUT Q8HR [facility] Last Admin: 07/06/17 15:44 Dose: 5,000 units Heparin Sodium (Porcine) (Heparin Flush Picc/Ml/Cvc(*)) 1 - 3 ml FLUSH 0600, 1800 [facility] PRN Reason: Protocol Potassium Chloride/Dextrose (D5w 1/2 Ns Kcl 20 Meq 1000 Ml*) 1,000 mls @ 125 mls/hr IV PER RATE [facility] Last Admin: 07/06/17 15:44 Dose: 125 mls/hr Dextrose 1,000 ml/ Amino Acids 850 ml/ Sterile Water 150 ml/Fat Emulsion Intravenous 500 ml/ Sodium Chloride 100 meq/Potassium Chloride 50 meq/Potassium Phosphate 15 mmole/Calcium Gluconate 15 meq/Magnesium Sulfate 10 meq/ Multivitamins 10 ml/ Trace Metals 1 ml/ Nutrition ( Parenteral) 2,600.721 mls @ 108.422 mls/hr IV 1700 [facility] Last Admin: 07/06/17 19:14 Dose: 108.422 mls/hr Morphine Sulfate (Morphine Inj (Syringe)*) 2 mg IV Q4H PRN PRN Reason: PAIN - MILD Last Admin: 07/06/17 05:31 Dose: 2 mg Omeprazole (Prilosec Cap*) 20 mg PO DAILY@0600 [facility] Last Admin: 07/06/17 05:33 Dose: Not Given Ondansetron HCl (Zofran Inj*) 4 mg IV Q6H PRN PRN Reason: NAUSEA Last Admin: 07/06/17 05:29 Dose: 4 mg Oxycodone HCl (Roxycodone Tab*) 5 mg PO Q4H PRN PRN Reason: PAIN - MODERATE TO SEVERE Last Admin: 07/04/17 07:52 Dose: 5 mg Phenol/Menthol (Chloroseptic Throat [place]*) 1 spray MT TID PRN PRN Reason: SORE THROAT Last Admin: 07/06/17 19:48 Dose: 1 spray Sodium Chloride (Sodium Chloride 0.65% Nasal [place]*) 2 spray BOTH NARES BID ALESSANDRA Last Admin: 07/06/17 19:49 Dose: Not Given Vital Signs - 8 hr 07/06/17 07/06/17 07/06/17 14:29 15:58 16:00 Temperature 98.4 F Pulse Rate 90 Respiratory 20 Rate Blood Pressure 139/56 (mmHg) O2 Sat by Pulse 97 95 95 Oximetry 07/06/17 07/06/17 19:37 19:49 Temperature 97.3 F Pulse Rate 80 Respiratory 24 18 Rate Blood Pressure 157/64 (mmHg) O2 Sat by Pulse 96 Oximetry Oxygen Devices in Use Now: None Appearance: more tired appearing. NAD Eyes: No Scleral Icterus, PERRLA Ears/Nose/Mouth/Throat: NL Teeth, Lips, Gums, Mucous Membranes Moist Respiratory: Symmetrical Chest Expansion and Respiratory Effort, Clear to Auscultation Cardiovascular: NL Sounds; No Murmurs; No JVD, RRR Abdominal: - - slightly less distended, mild tender, no rebound or guarding. Extremities: No Edema, No Clubbing, Cyanosis Skin: No Rash or Ulcers, No Nodules or Sclerosis Neurological: Alert and Oriented x 3, NL Sensation, NL Muscle Strength and Tone Result Diagrams: 07/06/17 04:28 07/06/17 11:21 Additional Lab and Data: Laboratory Results - last 24 hr 07/06/17 07/06/17 07/06/17 04:28 11:21 19:39 WBC 7.2 RBC 2.58 L Hgb 8.3 L Hct 24 L MCV 94 MCH 32 H MCHC 34 RDW 16 H Plt Count 389 MPV 8 Neut % (Auto) 65.8 Lymph % (Auto) 8.3 L [place] % (Auto) 21.4 H Eos % (Auto) 4.1 Baso % (Auto) 0.4 Absolute Neuts (auto) 4.7 Absolute Lymphs (auto) 0.6 L Absolute Monos (auto) 1.5 H Absolute Eos (auto) 0.3 Absolute Basos (auto) 0 Absolute Nucleated RBC 0 Nucleated RBC % 0.1 Sodium 135 Potassium 3.9 Chloride 104 Carbon Dioxide 23 Anion Gap 8 BUN 22 Creatinine 1.02 Est GFR ( Amer) 91.3 Est GFR (Non-Af Amer) 71.0 BUN/Creatinine Ratio 21.6 H Glucose 126 H POC Glucose (mg/dL) 135 H Calcium 8.1 L Phosphorus 3.1 Magnesium 2.3 Total Bilirubin 0.60 AST 13 ALT 17 Alkaline Phosphatase 36 Total Protein 5.7 L Albumin 2.9 L Globulin 2.8 Albumin/Globulin Ratio 1.0 Prealbumin 6 L Triglycerides 144 Cholesterol 109 Microbiology and Other Data: Microbiology 06/28/17 07:25 Stool Stool Occult Blood (CHRIS) - Final Assess/Plan/Problems-Billing Assessment: 76 yo m with h/o RA, HTN, recurrent diverticular bleed presents with BRBPR and ACUTE anemia s/p pRBC transfusions. now s/p right colectomy 06/29/17 PM. c/b post op ileus vs bowel obstruction . Orthostatic with LH 07/02 and 07/03. Now NGT for continued SBO. Planned TPN - Patient Problems (1) Ileus following gastrointestinal surgery Current Visit: Yes Status: Acute Code(s): K91.30 - POSTPROC INTESTINAL OBST , UNSP TO PARTIAL VERSUS COMPLETE SNOMED Code(s): 351486897 Comment: Abd Xray with worsening SBO. needed NGT after large volume bilious vomiting 07/04. Discussed with Dr. Otero consideration for CT abd/pelvis but he did not to order onw and will defer to surgical service. TPN starting by surgery (PICC ordered) given now 7 days out from surgery with poor po intake Encourage ambulation frequently. docusate daily. (2) Orthostatic dizziness Current Visit: Yes Status: Acute Code(s): R42 - DIZZINESS AND GIDDINESS SNOMED Code(s): 249591510 Comment: orthostatics: 07/02: BP fell 27 points and HR increased 18 bpm from lying to standing yesterday. IVF. 07/03 BP fell 26 points and HR increased 13 bpm s/p pRBC 07/02 continue IVF (3) Anemia Current Visit: Yes Status: Acute Code(s): D64.9 - ANEMIA, UNSPECIFIED SNOMED Code(s): 359733855 Comment: ACUTE anemia present on presentation due to lower GI bleed, recent colonoscopy with diverticulosis. Now s/p right hemicolectomy s/p 4 U PRBC transfusion this hospital stay hgb 8.3 iron <15, sat 6% and ferritin 263. was started on iron supplements at admission. Consider IV iron. (4) Lower GI bleed Current Visit: No Status: Acute Code(s): K92.2 - GASTROINTESTINAL HEMORRHAGE , UNSPECIFIED SNOMED Code(s): 55202779 Comment: Diverticular bleed noted in r colon on tagged RBC scan, s/p R colectomy by Dr. Otero on 06/29/17. (5) Fever Current Visit: Yes Status: Acute Code(s): R50.9 - FEVER, UNSPECIFIED SNOMED Code(s): 191453850 Comment: might have aspirated bile last night? CXR w/o infiltrates. Would recommend blood culture and CT abd if spikes another fever. Status and Disposition: inpatient. Continued ileus vs SBO. Attending: Michael Sarabia
[2017-07-07] MEDS: D5W 1/2 NS KCl 20 Meq 1000 ML* 1,000 ML IV SCH ×2 (00:26→08:50)
[2017-07-07] MEDS: Morphine INJ* 2 MG/ML 1 ML SYRINGE (TWO MG - NEW SYRINGE VERSION) IV PRN (02:33)
[2017-07-07] MEDS: Phenol 1.4% Spray* 177 ML BTL MT PRN (03:24)
[2017-07-07] MEDS: Omeprazole CAP* 20 MG PO SCH (05:08)
[2017-07-07] MEDS: Heparin VIAL(*) 5000 UNITS/ML VIAL (FIVE THOUSAND) SUBCUT SCH ×3 (06:14→21:58)
[2017-07-07] MEDS: Saline NASAL SPRAY 0.65%* BTL BOTH NARES SCH ×2 (07:20→21:16)
[2017-07-07] MEDS: Docusate CAP* 100 MG PO SCH (07:20)
[2017-07-07] MEDS: Ferrous Sulfate TAB* 325 MG PO SCH (07:20)
[2017-07-07 07:32] LABS: Hematocrit 24 % (42-52); Hemoglobin 8.1 g/dl (14.0-18.0); Mean Corpuscular HGB Conc 34 g/dl (31-36); Mean Corpuscular Hemoglobin 32 pg (27-31); Mean Corpuscular Volume 94 fL (80-94); Mean Platelet Volume 8 um3 (7.4-10.4); Platelet Count 450 10^3/ul (150-450); Red Blood Count 2.55 10^6/ul (4.0-5.4); Red Cell Distribution Width 16 % (10.5-15); White Blood Count 7.2 10^3/ul (3.5-10.8)
[2017-07-07 07:39] LABS: EGFR Non-African American 84.2 (>60)
[2017-07-07 08:02] LABS: Monocytes % 17 % (0-13)
[2017-07-07] MEDS: Ondansetron INJ* 2 MG/ML VIAL IV PRN (12:45)
--- NOTE | 2017-07-07 13:48 | PN ---
Progress Note - Progress Note Date of Service: 07/07/17 SOAP: Subjective: He has been passing BMs and flatus today. C/o sleeping poorly and abd pain, better with pain meds. Still dizzy and hasn't walked yet today but plans on getting OOB. Objective: Vital Signs Temp 99.0 F 07/07/17 07:20 Pulse 83 07/07/17 07:20 Resp 20 07/07/17 09:00 BP 137/58 07/07/17 07:20 Pulse Ox 93 07/07/17 09:00 Tmax=99.7 Awake, alert, NAD Abd: no BS, distended, soft; tender incision; no erythema. Intake & Output 07/06/17 07/07/17 07/07/17 18:59 06:59 18:59 Intake Total 997 994 Output Total 1100 1900 Balance -103 -906 Weight 181 lb 14.4 oz Intake: IV Fluids 997 994 D5W 1/2 NS 20 meq KCL 997 994 Oral 0 0 Output: NG Tube Drainage Amount 900 1600 Urine 200 300 Other: Estimated Void Large Medium Date of Last Bowel 07/06/17 Movement # Bowel Movements 2 2 Estimated Stool Amount Large Large Large # Voids 1 Laboratory Results - last 24 hr 07/06/17 07/07/17 07/07/17 19:39 00:51 03:57 WBC RBC Hgb Hct MCV MCH MCHC RDW Plt Count MPV Neut % (Auto) Lymph % (Auto) [place] % (Auto) Eos % (Auto) Baso % (Auto) Absolute Neuts (auto) Absolute Lymphs (auto) Absolute Monos (auto) Absolute Eos (auto) Absolute Basos (auto) Absolute Nucleated RBC Immature Gran % Neutrophils % Band Neutrophils % Lymphocytes % Monocytes % Eosinophils % Basophils % Metamyelocytes % Nucleated RBC % Abs Neuts (Manual) Abs Monocytes (Manual) Absolute Eos (Manual) Abs Basophils (Manual) Normal RBC Morphology Sodium Potassium Chloride Carbon Dioxide Anion Gap BUN Creatinine Est GFR ( Amer) Est GFR (Non-Af Amer) BUN/Creatinine Ratio Glucose POC Glucose (mg/dL) 135 H 163 H 157 H Calcium Phosphorus Magnesium Total Bilirubin AST ALT Alkaline Phosphatase Total Protein Albumin Globulin Albumin/Globulin Ratio Prealbumin Triglycerides Cholesterol 07/07/17 07/07/17 07/07/17 05:55 05:55 09:06 WBC 7.2 RBC 2.55 L Hgb 8.1 L Hct 24 L MCV 94 MCH 32 H MCHC 34 RDW 16 H Plt Count 450 MPV 8 Neut % (Auto) Not Reportable Lymph % (Auto) Not Reportable [place] % (Auto) Not Reportable Eos % (Auto) Not Reportable Baso % (Auto) Not Reportable Absolute Neuts (auto) Not Reportable Absolute Lymphs (auto) Not Reportable Absolute Monos (auto) Not Reportable Absolute Eos (auto) Not Reportable Absolute Basos (auto) Not Reportable Absolute Nucleated RBC Not Reportable Immature Gran % 8 Neutrophils % 61 Band Neutrophils % 8 Lymphocytes % 7 L Monocytes % 17 H Eosinophils % 6 Basophils % 0 Metamyelocytes % 1 Nucleated RBC % Not Reportable Abs Neuts (Manual) 4.4 Abs Monocytes (Manual) 1.2 H Absolute Eos (Manual) 0.4 Abs Basophils (Manual) 0 Normal RBC Morphology Normal Sodium 134 Potassium 3.8 Chloride 105 Carbon Dioxide 22 Anion Gap 7 BUN 21 Creatinine 0.88 Est GFR ( Amer) 108.3 Est GFR (Non-Af Amer) 84.2 BUN/Creatinine Ratio 23.9 H Glucose 121 H POC Glucose (mg/dL) 150 H Calcium 8.2 L Phosphorus 2.6 Magnesium 2.2 Total Bilirubin 0.40 AST 14 ALT 15 Alkaline Phosphatase 38 Total Protein 5.6 L Albumin 2.8 L Globulin 2.8 Albumin/Globulin Ratio 1.0 Prealbumin 6 L Triglycerides 140 Cholesterol 97 07/07/17 12:38 WBC RBC Hgb Hct MCV MCH MCHC RDW Plt Count MPV Neut % (Auto) Lymph % (Auto) [place] % (Auto) Eos % (Auto) Baso % (Auto) Absolute Neuts (auto) Absolute Lymphs (auto) Absolute Monos (auto) Absolute Eos (auto) Absolute Basos (auto) Absolute Nucleated RBC Immature Gran % Neutrophils % Band Neutrophils % Lymphocytes % Monocytes % Eosinophils % Basophils % Metamyelocytes % Nucleated RBC % Abs Neuts (Manual) Abs Monocytes (Manual) Absolute Eos (Manual) Abs Basophils (Manual) Normal RBC Morphology Sodium Potassium Chloride Carbon Dioxide Anion Gap BUN Creatinine Est GFR ( Amer) Est GFR (Non-Af Amer) BUN/Creatinine Ratio Glucose POC Glucose (mg/dL) 150 H Calcium Phosphorus Magnesium Total Bilirubin AST ALT Alkaline Phosphatase Total Protein Albumin Globulin Albumin/Globulin Ratio Prealbumin Triglycerides Cholesterol Assessment: POD#8 s/p lap R colon for LGIB. Improving ileus. Fever resolved. Plan: Cont NGT/bowel rest. Cont TPN until tolerating diet. Increase activity.
--- NOTE | 2017-07-07 16:45 | PN ---
Subjective Date of Service: 07/07/17 Interval History: Pain level 6-7, adequately controlled with po oxycodone. Pt reports large BM today. Objective Active Medications: Acetaminophen (Tylenol Tab*) 650 mg PO Q4H PRN PRN Reason: FEVER/PAIN Last Admin: 07/04/17 05:32 Dose: 650 mg Docusate Sodium (Colace Cap*) 100 mg PO DAILY [facility] Last Admin: 07/07/17 07:20 Dose: Not Given Ferrous Sulfate (Ferrous Sulfate Tab*) 325 mg PO BID [facility] Last Admin: 07/07/17 07:20 Dose: Not Given Heparin Sodium (Porcine) (Heparin Vial(*)) 5,000 units SUBCUT Q8HR [facility] Last Admin: 07/07/17 14:44 Dose: 5,000 units Heparin Sodium (Porcine) (Heparin Flush Picc/Ml/Cvc(*)) 1 - 3 ml FLUSH 0600, 1800 [facility] PRN Reason: Protocol Last Admin: 07/07/17 06:21 Dose: 2 ml Dextrose 1,000 ml/ Amino Acids 850 ml/ Sterile Water 150 ml/Fat Emulsion Intravenous 500 ml/ Sodium Chloride 100 meq/Potassium Chloride 50 meq/Potassium Phosphate 15 mmole/Calcium Gluconate 15 meq/Magnesium Sulfate 10 meq/ Multivitamins 10 ml/ Trace Metals 1 ml/ Nutrition ( Parenteral) 2,600.721 mls @ 108.422 mls/hr IV 1700 [facility] Last Admin: 07/06/17 19:14 Dose: 108.422 mls/hr Morphine Sulfate (Morphine Inj (Syringe)*) 2 mg IV Q4H PRN PRN Reason: PAIN - MILD Last Admin: 07/07/17 02:33 Dose: 2 mg Omeprazole (Prilosec Cap*) 20 mg PO DAILY@0600 [facility] Last Admin: 07/07/17 05:08 Dose: Not Given Ondansetron HCl (Zofran Inj*) 4 mg IV Q6H PRN PRN Reason: NAUSEA Last Admin: 07/07/17 12:45 Dose: 4 mg Oxycodone HCl (Roxycodone Tab*) 5 mg PO Q4H PRN PRN Reason: PAIN - MODERATE TO SEVERE Last Admin: 07/04/17 07:52 Dose: 5 mg Phenol/Menthol (Chloroseptic Throat [place]*) 1 spray MT TID PRN PRN Reason: SORE THROAT Last Admin: 07/07/17 03:24 Dose: 1 spray Sodium Chloride (Sodium Chloride 0.65% Nasal [place]*) 2 spray BOTH NARES BID ALESSANDRA Last Admin: 07/07/17 07:20 Dose: Not Given Vital Signs - 8 hr 07/07/17 07/07/17 07/07/17 08:54 09:00 11:34 Temperature 99.5 F Pulse Rate 78 Respiratory 20 18 Rate Blood Pressure 136/54 (mmHg) O2 Sat by Pulse 93 93 95 Oximetry 07/07/17 07/07/17 15:35 16:00 Temperature 99.2 F Pulse Rate 78 Respiratory 21 Rate Blood Pressure 140/56 (mmHg) O2 Sat by Pulse 95 95 Oximetry Oxygen Devices in Use Now: None Appearance: Alert, partly up in bed. In good spirits. Looks comfortable. Eyes: No Scleral Icterus Respiratory: Symmetrical Chest Expansion and Respiratory Effort, Clear to Auscultation, Clear to Percussion Cardiovascular: NL Sounds; No Murmurs; No JVD, RRR, No Edema, - Abdominal: No Hepatosplenomegaly, - - no BS. Not tender, somewhat distended/ obese. Extremities: No Edema, No Clubbing, Cyanosis, - Skin: No Rash or Ulcers, No Nodules or Sclerosis, - Neurological: Alert and Oriented x 3, NL Sensation Result Diagrams: 07/07/17 05:55 07/07/17 05:55 Additional Lab and Data: Laboratory Results - last 24 hr 07/06/17 07/06/17 07/06/17 04:28 11:21 19:39 WBC 7.2 RBC 2.58 L Hgb 8.3 L Hct 24 L MCV 94 MCH 32 H MCHC 34 RDW 16 H Plt Count 389 MPV 8 Neut % (Auto) 65.8 Lymph % (Auto) 8.3 L [place] % (Auto) 21.4 H Eos % (Auto) 4.1 Baso % (Auto) 0.4 Absolute Neuts (auto) 4.7 Absolute Lymphs (auto) 0.6 L Absolute Monos (auto) 1.5 H Absolute Eos (auto) 0.3 Absolute Basos (auto) 0 Absolute Nucleated RBC 0 Nucleated RBC % 0.1 Sodium 135 Potassium 3.9 Chloride 104 Carbon Dioxide 23 Anion Gap 8 BUN 22 Creatinine 1.02 Est GFR ( Amer) 91.3 Est GFR (Non-Af Amer) 71.0 BUN/Creatinine Ratio 21.6 H Glucose 126 H POC Glucose (mg/dL) 135 H Calcium 8.1 L Phosphorus 3.1 Magnesium 2.3 Total Bilirubin 0.60 AST 13 ALT 17 Alkaline Phosphatase 36 Total Protein 5.7 L Albumin 2.9 L Globulin 2.8 Albumin/Globulin Ratio 1.0 Prealbumin 6 L Triglycerides 144 Cholesterol 109 Microbiology and Other Data: Microbiology 06/28/17 07:25 Stool Stool Occult Blood (CHRIS) - Final Assess/Plan/Problems-Billing Assessment: 76 yo m with h/o RA, HTN, recurrent diverticular bleed presents with BRBPR and ACUTE anemia s/p pRBC transfusions. now s/p right colectomy 06/29/17 PM. c/b post op ileus vs bowel obstruction . Orthostatic with LH 07/02 and 07/03. Now NGT for continued SBO. Planned TPN - Patient Problems (1) Anemia Current Visit: Yes Status: Acute Code(s): D64.9 - ANEMIA, UNSPECIFIED SNOMED Code(s): 491955650 Comment: Stable. Repeat Fe/TIBC 07/08. (2) Ileus following gastrointestinal surgery Current Visit: Yes Status: Acute Code(s): K91.30 - POSTPROC INTESTINAL OBST , UNSP TO PARTIAL VERSUS COMPLETE SNOMED Code(s): 618728654 Comment: S/P R hemicolectomy 06/29/17. Note NG drainage 2500 ml 07/06-07/07. TPN infusing. Encourage ambulation frequently. Stop po meds for now. (3) Fever Current Visit: Yes Status: Acute Code(s): R50.9 - FEVER, UNSPECIFIED SNOMED Code(s): 393193581 Comment: No fever for past 36 hrs as of 07/07 5 PM. Status and Disposition: inpatient. Continued ileus vs SBO.
[2017-07-07] MEDS: TPN* 24 HR with D10W 1000 ML BAG* 1,000 ML, Amino Acid Infusion 10%* 850 ML, Sterile Wa... IV SCH ×12 (17:44)
[2017-07-07] MEDS: Morphine INJ* 2 MG/ML 1 ML CARPUJECT IV PRN (21:58)
[2017-07-08] MEDS: Heparin VIAL(*) 5000 UNITS/ML VIAL (FIVE THOUSAND) SUBCUT SCH ×3 (05:20→22:05)
[2017-07-08 05:47] LABS: ABS Basophils 0.1 10^3/ul (0-0.2); ABS Eosinophils 0.2 10^3/ul (0-0.6); ABS Lymphocytes 0.9 10^3/ul (1.0-4.8); ABS Monocytes 1.5 10^3/ul (0-0.8); ABS Neutrophils 5.9 10^3/ul (1.5-7.7); ABS Nucleated RBC 0 10^3/ul; Eosinophil % 2.4 % (0-6); Hematocrit 24 % (42-52); Lymphocyte % 10.5 % (25-47); Mean Corpuscular HGB Conc 34 g/dl (31-36); Mean Corpuscular Hemoglobin 32 pg (27-31); Mean Corpuscular Volume 94 fL (80-94); Mean Platelet Volume 8 um3 (7.4-10.4); Nucleated Red Blood Cells % 0; Platelet Count 392 10^3/ul (150-450); Red Cell Distribution Width 17 % (10.5-15); White Blood Count 8.6 10^3/ul (3.5-10.8)
[2017-07-08] MEDS: Omeprazole CAP* 20 MG PO SCH (05:49)
[2017-07-08 06:02] LABS: EGFR Non-African American 96.8 (>60)
[2017-07-08] MEDS: Saline NASAL SPRAY 0.65%* BTL BOTH NARES SCH ×2 (07:54→22:07)
[2017-07-08] MEDS: Pantoprazole IV* 40 MG IV SCH (07:54)
--- NOTE | 2017-07-08 10:27 | PN ---
Progress Note - Progress Note Date of Service: 07/08/17 SOAP: Subjective: Patient seen and examined at bedside. Reports feeling tired, still gets dizzy at times, but ambulated last night. Denies abdominal pain or nausea. Still getting NG output over 2L daily. Objective: Awake and alert, comfortable in bed. Vitals reviewed, Tmax 100.7, no tachycardia Abdomen soft, less distended, non-tender. Incisions C/D/I. I/O's noted Labs reviewed, H/H stable Assessment: s/p laparoscopic right colectomy for LGIB, post-op ileus, improving slowly Plan: Continue TPN Continue NG for now Ambulate as tolerated Await bowel functions
--- NOTE | 2017-07-08 13:51 | RAD ---
HISTORY: Verify NG tube position COMPARISONS: July 06, 2017 VIEWS: 1: frontal portable view of the chest at 1:15 PM. The lung apices are cut off. FINDINGS: LINES AND TUBES: A right-sided PICC line is noted with the tip overlying the superior vena cava.. A gastric tube is noted, with the tip in the left upper quadrant in a prepyloric position.. CARDIOMEDIASTINAL SILHOUETTE: The cardiomediastinal silhouette is normal for portable technique. PLEURA: The costophrenic angles are sharp. No pleural abnormalities are noted. LUNG PARENCHYMA: The lungs are clear. ABDOMEN: Multiple dilated loops of small bowel are noted in the upper abdomen. BONES AND SOFT TISSUES: No bone or soft tissue abnormalities are noted. IMPRESSION: LINES AND TUBES ABOVE. NO ACTIVE CARDIOPULMONARY DISEASE.
--- NOTE | 2017-07-08 14:10 | PN ---
Progress Note - Progress Note Date of Service: 07/08/17 Note: CXR obtained per DR. Otero to verify NG tube position. Tip of NG tube at LUQ in a prepyloric position. Continue NG suction for now
[2017-07-08] MEDS ORDERED: PREMIX* 0 ML with Acetaminophen IV 1GM/100ML * 1,000 MG IVPB ONE ×2 (15:08)
[2017-07-08] MEDS ORDERED: PREMIX* 0 ML with Acetaminophen IV 1GM/100ML * 1,000 MG IVPB PRN ×2 (15:15)
--- NOTE | 2017-07-08 16:32 | PN ---
Subjective Date of Service: 07/08/17 Interval History: C/O total body pain. Relieved yesterday by IV acetaminophen. Objective Active Medications: Acetaminophen (Tylenol Tab*) 650 mg PO Q4H PRN PRN Reason: FEVER/PAIN Last Admin: 07/04/17 05:32 Dose: 650 mg Heparin Sodium (Porcine) (Heparin Vial(*)) 5,000 units SUBCUT Q8HR [facility] Last Admin: 07/08/17 14:30 Dose: 5,000 units Heparin Sodium (Porcine) (Heparin Flush Picc/Ml/Cvc(*)) 1 - 3 ml FLUSH 0600, 1800 [facility] PRN Reason: Protocol Last Admin: 07/08/17 05:29 Dose: 1 ml Dextrose 1,000 ml/ Amino Acids 850 ml/ Sterile Water 150 ml/Fat Emulsion Intravenous 500 ml/ Sodium Chloride 100 meq/Potassium Chloride 50 meq/Potassium Phosphate 15 mmole/Calcium Gluconate 15 meq/Magnesium Sulfate 10 meq/ Multivitamins 10 ml/ Trace Metals 1 ml/ Nutrition ( Parenteral) 2,600.721 mls @ 108.422 mls/hr IV 1700 [facility] Last Admin: 07/07/17 17:44 Dose: 108.422 mls/hr Acetaminophen 1,000 mg/ IV (Solution) 100 mls @ 0 mls/hr IVPB Q6HR PRN; As Directed PRN Reason: PAIN Stop: 07/09/17 15:14 Iron Sucrose 200 mg/ Sodium (Chloride) 110 mls @ 110 mls/hr IVPB ONCE ONE Stop: 07/08/17 17:23 Morphine Sulfate (Morphine Inj (Syringe)*) 2 mg IV Q4H PRN PRN Reason: PAIN - MILD Last Admin: 07/07/17 21:58 Dose: 2 mg Ondansetron HCl (Zofran Inj*) 4 mg IV Q6H PRN PRN Reason: NAUSEA Last Admin: 07/07/17 12:45 Dose: 4 mg Pantoprazole Sodium (Protonix Iv*) 40 mg IV Q24H [facility] Last Admin: 07/08/17 07:54 Dose: 40 mg Phenol/Menthol (Chloroseptic Throat [place]*) 1 spray MT TID PRN PRN Reason: SORE THROAT Last Admin: 07/07/17 03:24 Dose: 1 spray Sodium Chloride (Sodium Chloride 0.65% Nasal [place]*) 2 spray BOTH NARES BID ALESSANDRA Last Admin: 07/08/17 07:54 Dose: Not Given Vital Signs - 8 hr 07/08/17 08:31 Temperature 99.2 F Pulse Rate 80 Respiratory 22 Rate Blood Pressure 149/62 (mmHg) O2 Sat by Pulse 94 Oximetry Oxygen Devices in Use Now: None Appearance: Alert, partly up in bed. In fair spirits, looks fatigued, otherwise comfortable. Abdominal: No Hepatosplenomegaly, - - Soft, obese/distended. No BS. Extremities: No Edema, No Clubbing, Cyanosis, - Skin: No Rash or Ulcers, No Nodules or Sclerosis, - Neurological: Alert and Oriented x 3 Result Diagrams: 07/08/17 05:30 07/08/17 05:30 Additional Lab and Data: Laboratory Results - last 24 hr 07/06/17 07/06/17 07/06/17 04:28 11:21 19:39 WBC 7.2 RBC 2.58 L Hgb 8.3 L Hct 24 L MCV 94 MCH 32 H MCHC 34 RDW 16 H Plt Count 389 MPV 8 Neut % (Auto) 65.8 Lymph % (Auto) 8.3 L [place] % (Auto) 21.4 H Eos % (Auto) 4.1 Baso % (Auto) 0.4 Absolute Neuts (auto) 4.7 Absolute Lymphs (auto) 0.6 L Absolute Monos (auto) 1.5 H Absolute Eos (auto) 0.3 Absolute Basos (auto) 0 Absolute Nucleated RBC 0 Nucleated RBC % 0.1 Sodium 135 Potassium 3.9 Chloride 104 Carbon Dioxide 23 Anion Gap 8 BUN 22 Creatinine 1.02 Est GFR ( Amer) 91.3 Est GFR (Non-Af Amer) 71.0 BUN/Creatinine Ratio 21.6 H Glucose 126 H POC Glucose (mg/dL) 135 H Calcium 8.1 L Phosphorus 3.1 Magnesium 2.3 Total Bilirubin 0.60 AST 13 ALT 17 Alkaline Phosphatase 36 Total Protein 5.7 L Albumin 2.9 L Globulin 2.8 Albumin/Globulin Ratio 1.0 Prealbumin 6 L Triglycerides 144 Cholesterol 109 Microbiology and Other Data: Microbiology 06/28/17 07:25 Stool Stool Occult Blood (CHRIS) - Final Assess/Plan/Problems-Billing Assessment: 76 yo m with h/o RA, HTN, recurrent diverticular bleed presents with BRBPR and ACUTE anemia s/p pRBC transfusions. now s/p right colectomy 06/29/17 PM. c/b post op ileus vs bowel obstruction . Orthostatic with LH 07/02 and 07/03. Now NGT for continued SBO. Planned TPN - Patient Problems (1) Anemia Current Visit: Yes Status: Acute Code(s): D64.9 - ANEMIA, UNSPECIFIED SNOMED Code(s): 536124694 Comment: Stable. Repeat Fe/TIBC showed iron deficiency. IV iron sucrose ordered 07/08. Possible concurrent B12 deficiency. B12 level and methylmalonic acid level addons. (2) Ileus following gastrointestinal surgery Current Visit: Yes Status: Acute Code(s): K91.30 - POSTPROC INTESTINAL OBST , UNSP TO PARTIAL VERSUS COMPLETE SNOMED Code(s): 420230801 Comment: S/P R hemicolectomy 06/29/17. Note NG drainage 2500 ml 07/06-07/07. TPN infusing. Encourage ambulation frequently. Stop po meds for now. (3) Fever Current Visit: Yes Status: Acute Code(s): R50.9 - FEVER, UNSPECIFIED SNOMED Code(s): 838259485 Comment: No fever for past 36 hrs as of 07/07 5 PM. Status and Disposition: inpatient. Continued ileus vs SBO.
[2017-07-08] MEDS ORDERED: Acetaminophen IV 1GM/100ML * 100 ML ONE ×2 (16:42→23:51)
[2017-07-08] MEDS: TPN* 24 HR with D10W 1000 ML BAG* 1,000 ML, Amino Acid Infusion 10%* 850 ML, Sterile Wa... IV SCH ×12 (17:26)
[2017-07-08] MEDS ORDERED: Iron Sucrose* 200 MG in NS 0.9% 100 ML* 100 ML IVPB ONE (18:00)
[2017-07-09] MEDS: Acetaminophen IV 1GM/100ML * 100 ML IVPB PRN ×2 (00:08→06:34)
[2017-07-09] MEDS: Pantoprazole IV* 40 MG IV SCH (05:54)
[2017-07-09] MEDS: Heparin VIAL(*) 5000 UNITS/ML VIAL (FIVE THOUSAND) SUBCUT SCH ×3 (05:59→23:54)
[2017-07-09 06:20] LABS: Hematocrit 25 % (42-52); Hemoglobin 8.6 g/dl (14.0-18.0); Mean Corpuscular HGB Conc 34 g/dl (31-36); Mean Corpuscular Hemoglobin 32 pg (27-31); Mean Corpuscular Volume 93 fL (80-94); Mean Platelet Volume 8 um3 (7.4-10.4); Platelet Count 380 10^3/ul (150-450); Red Blood Count 2.69 10^6/ul (4.0-5.4); Red Cell Distribution Width 17 % (10.5-15); White Blood Count 10.4 10^3/ul (3.5-10.8)
[2017-07-09 06:26] LABS: ABS Basophils 0 10^3/ul (0-0.2); ABS Eosinophils 0.2 10^3/ul (0-0.6); ABS Lymphocytes 0.9 10^3/ul (1.0-4.8); ABS Monocytes 1.4 10^3/ul (0-0.8); ABS Neutrophils 7.9 10^3/ul (1.5-7.7); ABS Nucleated RBC 0 10^3/ul; Eosinophil % 1.9 % (0-6); Lymphocyte % 8.7 % (25-47); Nucleated Red Blood Cells % 0.2
[2017-07-09] MEDS: Saline NASAL SPRAY 0.65%* BTL BOTH NARES SCH ×2 (07:48→21:53)
--- NOTE | 2017-07-09 10:46 | PN ---
Progress Note - Progress Note Date of Service: 07/09/17 Note: S: POD #10. Main c/o is NG irritation (pain and gagging). He also feels weak and SOB w/ min exertion. Denies sig abd pain. IV tylenol has been of some help. Had formed stool. Little to no flatus. O: Vital Signs - 8 hr 07/09/17 07/09/17 07/09/17 03:59 07:28 08:00 Temperature 99.0 F 97.9 F Pulse Rate 76 74 Respiratory 18 17 17 Rate Blood Pressure 143/63 140/62 (mmHg) O2 Sat by Pulse 96 96 96 Oximetry Intake and Output Last 24 Hours 07/07/17 07/08/17 07/09/17 07/10/17 06:59 06:59 06:59 06:59 Intake Total 1990 5327 1413 Output Total 2999 2675 5050 0 Balance -1009 2652 -3637 0 Weight 181 lb 14.4 oz 200 lb 1.6 oz 193 lb 9.6 oz Intake: IV Fluids 1990 3323 92 D5W 1/2 NS 20 meq KCL 1990 1865 IV Tylenol 92 PPN 1458 TPN/PPN 2003 1321 Oral 0 0 0 Output: NG Tube Drainage Amount 2500 2275 4450 Urine 500 400 600 0 Other: Estimated Void Medium Small Medium Date of Last Bowel 07/06/17 07/08/17 Movement # Bowel Movements 2 1 0 Estimated Stool Amount Large Medium # Voids 1 1 1 Gen: NAD HEENT: no sig uvular edema or erythema Heart: reg Lungs: clear Abd: incisions clean and dry; very hypoactive BS; soft; no sig tenderness to palp Labs: Laboratory Tests 07/08/17 07/08/17 07/08/17 07:54 12:13 19:53 WBC Hgb Glucose POC Glucose (mg/dL) 138 H 138 H 141 H Phosphorus Magnesium AST ALT Albumin Prealbumin 07/09/17 07/09/17 06:10 06:10 WBC 10.4 Hgb 8.6 L Glucose 116 H POC Glucose (mg/dL) Phosphorus 3.6 Magnesium 2.2 AST 42 H ALT 54 H Albumin 2.9 L Prealbumin 8 L chest xray: Exam Date: 07/08/17 1258 ADM Status: ADM IN Order Information: CHEST AP PORTABLE Accession Number: [id number] CPT: 62431 HISTORY: Verify NG tube position COMPARISONS: July 06, 2017 VIEWS: 1: frontal portable view of the chest at 1:15 PM. The lung apices are cut off. FINDINGS: LINES AND TUBES: A right-sided PICC line is noted with the tip overlying the superior vena cava.. A gastric tube is noted, with the tip in the left upper quadrant in a prepyloric position.. CARDIOMEDIASTINAL SILHOUETTE: The cardiomediastinal silhouette is normal for portable technique. PLEURA: The costophrenic angles are sharp. No pleural abnormalities are noted. LUNG PARENCHYMA: The lungs are clear. ABDOMEN: Multiple dilated loops of small bowel are noted in the upper abdomen. BONES AND SOFT TISSUES: No bone or soft tissue abnormalities are noted. IMPRESSION: LINES AND TUBES ABOVE. NO ACTIVE CARDIOPULMONARY DISEASE. A: s/p R colectomy for diverticular bleed; postop ileus; acute anemia from blood loss (stable); NG pharyngeal irritation P: cont TPN; await GI fct; cont NG; cont IV tylenol; consider currently ordered MS prn; consider Toradol (nl renal fct)
[2017-07-09] MEDS: Morphine INJ* 2 MG/ML 1 ML CARPUJECT IV PRN ×2 (11:34→20:05)
[2017-07-09] MEDS: Lidocaine 2% VISCOUS* 15 ML UDC SWISH SPIT PRN ×2 (12:13→16:59)
--- NOTE | 2017-07-09 14:23 | PN ---
Subjective Date of Service: 07/09/17 Interval History: Patient sleeping in bed. Objective Active Medications: Acetaminophen (Tylenol Tab*) 650 mg PO Q4H PRN PRN Reason: FEVER/PAIN Last Admin: 07/04/17 05:32 Dose: 650 mg Heparin Sodium (Porcine) (Heparin Vial(*)) 5,000 units SUBCUT Q8HR [facility] Last Admin: 07/09/17 05:59 Dose: 5,000 units Heparin Sodium (Porcine) (Heparin Flush Picc/Ml/Cvc(*)) 1 - 3 ml FLUSH 0600, 1800 [facility] PRN Reason: Protocol Last Admin: 07/09/17 06:54 Dose: 1 ml Dextrose 1,000 ml/ Amino Acids 850 ml/ Sterile Water 150 ml/Fat Emulsion Intravenous 500 ml/ Sodium Chloride 100 meq/Potassium Chloride 50 meq/Potassium Phosphate 15 mmole/Calcium Gluconate 15 meq/Magnesium Sulfate 10 meq/ Multivitamins 10 ml/ Trace Metals 1 ml/ Nutrition ( Parenteral) 2,600.721 mls @ 108.422 mls/hr IV 1700 [facility] Stop: 07/09/17 16:59 Last Admin: 07/08/17 17:26 Dose: 108.422 mls/hr Acetaminophen (Ofirmev*) 100 mls @ 400 mls/hr IVPB Q6HR PRN; As Directed PRN Reason: PAIN Stop: 07/09/17 15:14 Last Admin: 07/09/17 06:34 Dose: 400 mls/hr Sodium Chloride 100 meq/Potassium Chloride 50 meq/Potassium Phosphate 15 mmole/ Calcium Gluconate 15 meq/Magnesium Sulfate 10 meq/Multivitamins 10 ml/ Trace Metals 1 ml/ Dextrose 1,000 ml / Amino Acids 850 ml/ Sterile Water 150 ml/ Fat Emulsion Intravenous 250 ml/ Nutrition (Parenteral) 2,350.721 mls @ 97.947 mls/ hr CENT\PICC 1700 [facility] Lidocaine (Xylocaine 2% Viscous*) 20 ml SWISH SPIT TID PRN PRN Reason: SORE THROAT Last Admin: 07/09/17 12:13 Dose: 15 ml Morphine Sulfate (Morphine Inj (Syringe)*) 2 mg IV Q4H PRN PRN Reason: PAIN - MILD Last Admin: 07/09/17 11:34 Dose: 2 mg Ondansetron HCl (Zofran Inj*) 4 mg IV Q6H PRN PRN Reason: NAUSEA Last Admin: 07/07/17 12:45 Dose: 4 mg Pantoprazole Sodium (Protonix Iv*) 40 mg IV Q24H [facility] Last Admin: 07/09/17 05:54 Dose: 40 mg Phenol/Menthol (Chloroseptic Throat [place]*) 1 spray MT TID PRN PRN Reason: SORE THROAT Last Admin: 07/07/17 03:24 Dose: 1 spray Sodium Chloride (Sodium Chloride 0.65% Nasal [place]*) 2 spray BOTH NARES BID [facility] Last Admin: 07/09/17 07:48 Dose: Not Given Vital Signs - 8 hr 07/09/17 07/09/17 07/09/17 07:28 08:00 11:34 Temperature 97.9 F Pulse Rate 74 Respiratory 17 17 18 Rate Blood Pressure 140/62 (mmHg) O2 Sat by Pulse 96 96 Oximetry 07/09/17 07/09/17 12:19 12:52 Temperature 99.3 F Pulse Rate 81 Respiratory 18 18 Rate Blood Pressure 144/67 (mmHg) O2 Sat by Pulse Oximetry Oxygen Devices in Use Now: None Appearance: Sleeping in bed. Looks comfortable. Respiratory: Symmetrical Chest Expansion and Respiratory Effort Extremities: No Edema, No Clubbing, Cyanosis, - Skin: No Rash or Ulcers, No Nodules or Sclerosis, - Result Diagrams: 07/09/17 06:10 07/09/17 06:10 Additional Lab and Data: Laboratory Results - last 24 hr 07/06/17 07/06/17 07/06/17 04:28 11:21 19:39 WBC 7.2 RBC 2.58 L Hgb 8.3 L Hct 24 L MCV 94 MCH 32 H MCHC 34 RDW 16 H Plt Count 389 MPV 8 Neut % (Auto) 65.8 Lymph % (Auto) 8.3 L [place] % (Auto) 21.4 H Eos % (Auto) 4.1 Baso % (Auto) 0.4 Absolute Neuts (auto) 4.7 Absolute Lymphs (auto) 0.6 L Absolute Monos (auto) 1.5 H Absolute Eos (auto) 0.3 Absolute Basos (auto) 0 Absolute Nucleated RBC 0 Nucleated RBC % 0.1 Sodium 135 Potassium 3.9 Chloride 104 Carbon Dioxide 23 Anion Gap 8 BUN 22 Creatinine 1.02 Est GFR ( Amer) 91.3 Est GFR (Non-Af Amer) 71.0 BUN/Creatinine Ratio 21.6 H Glucose 126 H POC Glucose (mg/dL) 135 H Calcium 8.1 L Phosphorus 3.1 Magnesium 2.3 Total Bilirubin 0.60 AST 13 ALT 17 Alkaline Phosphatase 36 Total Protein 5.7 L Albumin 2.9 L Globulin 2.8 Albumin/Globulin Ratio 1.0 Prealbumin 6 L Triglycerides 144 Cholesterol 109 Microbiology and Other Data: Microbiology 06/28/17 07:25 Stool Stool Occult Blood ([facility]) - Final Assess/Plan/Problems-Billing Assessment: 76 yo m with h/o RA, HTN, recurrent diverticular bleed presents with BRBPR and ACUTE anemia s/p pRBC transfusions. now s/p right colectomy 06/29/17 PM. c/b post op ileus vs bowel obstruction . Orthostatic with LH 07/02 and 07/03. Now NGT for continued SBO. Planned TPN - Patient Problems (1) Anemia Current Visit: Yes Status: Acute Code(s): D64.9 - ANEMIA, UNSPECIFIED SNOMED Code(s): 332387433 Comment: Stable. Repeat Fe/TIBC showed iron deficiency. IV iron sucrose given 07/08. Possible concurrent B12 deficiency. B12 level could easily reflect the B12 in the TPN solution. Methylmalonic acid level pending. (2) Ileus following gastrointestinal surgery Current Visit: Yes Status: Acute Code(s): K91.30 - POSTPROC INTESTINAL OBST , UNSP TO PARTIAL VERSUS COMPLETE SNOMED Code(s): 393717160 Comment: S/P R hemicolectomy 06/29/17. Note NG drainage 2500 ml 07/06-07/07. TPN infusing. Encourage ambulation frequently. Stop po meds for now. (3) Fever Current Visit: Yes Status: Acute Code(s): R50.9 - FEVER, UNSPECIFIED SNOMED Code(s): 492161645 Comment: No fever since 07/07 19:45 hrs. Status and Disposition: inpatient. Continued ileus vs SBO.
[2017-07-09] MEDS: TPN* 24 HR with Sodium Chloride Conc 23.4%* 100 MEQ, Potassium Chloride TPN 50 MEQ, Pot... CENT\\PICC SCH ×12 (17:33)
[2017-07-09] MEDS: Ondansetron INJ* 2 MG/ML VIAL IV PRN (20:10)
[2017-07-10] MEDS: Morphine INJ* 2 MG/ML 1 ML CARPUJECT IV PRN ×5 (02:53→22:19)
[2017-07-10] MEDS: Lidocaine 2% VISCOUS* 15 ML UDC SWISH SPIT PRN ×3 (02:59→22:18)
[2017-07-10] MEDS: Pantoprazole IV* 40 MG IV SCH (06:09)
[2017-07-10] MEDS: Heparin VIAL(*) 5000 UNITS/ML VIAL (FIVE THOUSAND) SUBCUT SCH ×3 (06:09→22:27)
--- NOTE | 2017-07-10 09:01 | PN ---
Progress Note - Progress Note Date of Service: 07/10/17 SOAP: Subjective: No flatus or BM in the past 24 hours Minimal abdominal pain No SOB and he has been ambulating in the halls several times a day but continues to feel weak. Objective: Tmax 100.9 Temp Pulse Resp BP Pulse Ox 98.6 F 77 20 144/63 94 07/10/17 08:00 07/10/17 08:00 07/10/17 08:00 07/10/17 08:00 07/10/17 08:00 Intake & Output 07/08/17 07/09/17 07/10/17 07/11/17 06:59 06:59 06:59 06:59 Intake Total 5327 1413 1170 0 Output Total 2675 5050 2925 200 Balance 2652 -3637 -1755 -200 Weight 200 lb 1.6 oz 193 lb 9.6 oz 191 lb Intake: IV Fluids 3323 92 D5W 1/2 NS 20 meq KCL 1865 IV Tylenol 92 PPN 1458 TPN/PPN 2004 1321 1170 Oral 0 0 0 0 Output: NG Tube Drainage Amount 2275 4450 1900 Urine 338 680 8781 200 Other: Estimated Void Small Medium Date of Last Bowel 07/08/17 Movement # Bowel Movements 1 0 0 Estimated Stool Amount Medium # Voids 1 1 PEX: Comfortable in bed Lungs are clear. Cor is RRR Abd is soft and slightly distended. Incisions are clean and dry. Bowel sounds are absent throughout, minimal incisional tenderness. No tympany present Ext without edema Laboratory Results - last 24 hr 07/10/17 06:35 Sodium 134 Potassium 4.0 Chloride 106 Carbon Dioxide 20 L Anion Gap 8 BUN 22 Creatinine 0.91 Est GFR ( Amer) 104.2 Est GFR (Non-Af Amer) 81.0 BUN/Creatinine Ratio 24.2 H Glucose 127 H Calcium 8.5 L Assessment: S/P lap right colectomy for GI bleeding Post-op ileus--NGT output decreased although no GI function in the last 24 hours Plan: Continue NGT drainage TPN Increase activity Pulmonary toilet Follow labs
[2017-07-10] MEDS: Saline NASAL SPRAY 0.65%* BTL BOTH NARES SCH ×2 (09:54→22:27)
[2017-07-10] MEDS: TPN* 24 HR with Sodium Chloride Conc 23.4%* 100 MEQ, Potassium Chloride TPN 50 MEQ, Pot... CENT\\PICC SCH ×12 (16:57)
--- NOTE | 2017-07-10 17:33 | PN ---
Subjective Date of Service: 07/10/17 Interval History: Patient happy about diminished rate of NG drainage. Objective Active Medications: Acetaminophen (Tylenol Tab*) 650 mg PO Q4H PRN PRN Reason: FEVER/PAIN Last Admin: 07/04/17 05:32 Dose: 650 mg Heparin Sodium (Porcine) (Heparin Vial(*)) 5,000 units SUBCUT Q8HR [facility] Last Admin: 07/10/17 14:03 Dose: 5,000 units Heparin Sodium (Porcine) (Heparin Flush Picc/Ml/Cvc(*)) 1 - 3 ml FLUSH 0600, 1800 [facility] PRN Reason: Protocol Last Admin: 07/10/17 16:57 Dose: 1 ml Sodium Chloride 100 meq/Potassium Chloride 50 meq/Potassium Phosphate 15 mmole/ Calcium Gluconate 15 meq/Magnesium Sulfate 10 meq/Multivitamins 10 ml/ Trace Metals 1 ml/ Dextrose 1,000 ml / Amino Acids 850 ml/ Sterile Water 150 ml/ Fat Emulsion Intravenous 250 ml/ Nutrition (Parenteral) 2,350.721 mls @ 97.947 mls/ hr CENT\PICC 1700 [facility] Last Admin: 07/10/17 16:57 Dose: 97.947 mls/hr Lidocaine (Xylocaine 2% Viscous*) 20 ml SWISH SPIT TID PRN PRN Reason: SORE THROAT Last Admin: 07/10/17 13:01 Dose: 15 ml Morphine Sulfate (Morphine Inj (Syringe)*) 2 mg IV Q4H PRN PRN Reason: PAIN - MILD Last Admin: 07/10/17 17:10 Dose: 2 mg Ondansetron HCl (Zofran Inj*) 4 mg IV Q6H PRN PRN Reason: NAUSEA Last Admin: 07/09/17 20:10 Dose: 4 mg Pantoprazole Sodium (Protonix Iv*) 40 mg IV Q24H [facility] Last Admin: 07/10/17 06:09 Dose: 40 mg Phenol/Menthol (Chloroseptic Throat [place]*) 1 spray MT TID PRN PRN Reason: SORE THROAT Last Admin: 07/07/17 03:24 Dose: 1 spray Sodium Chloride (Sodium Chloride 0.65% Nasal [place]*) 2 spray BOTH NARES BID [facility] Last Admin: 07/10/17 09:54 Dose: Not Given Vital Signs - 8 hr 07/10/17 07/10/1718 09:54 11:07 11:19 Temperature 99.8 F Pulse Rate 82 Respiratory 16 14 18 Rate Blood Pressure 146/52 (mmHg) O2 Sat by Pulse 95 Oximetry 07/10/17 07/10/17 15:20 17:10 Temperature 99.7 F Pulse Rate 82 Respiratory 18 18 Rate Blood Pressure 152/48 (mmHg) O2 Sat by Pulse 94 Oximetry Oxygen Devices in Use Now: None Appearance: Alert, partly up in bed. In good spirits. Looks comfortable. Eyes: No Scleral Icterus Abdominal: No Hepatosplenomegaly - obese/distended. Soft, not tender. No BS. Extremities: No Edema, No Clubbing, Cyanosis, - Skin: No Rash or Ulcers, No Nodules or Sclerosis, - Neurological: Alert and Oriented x 3, NL Sensation Result Diagrams: 07/09/17 06:10 07/10/17 06:35 Additional Lab and Data: Laboratory Results - last 24 hr 07/06/17 07/06/17 07/06/17 04:28 11:21 19:39 WBC 7.2 RBC 2.58 L Hgb 8.3 L Hct 24 L MCV 94 MCH 32 H MCHC 34 RDW 16 H Plt Count 389 MPV 8 Neut % (Auto) 65.8 Lymph % (Auto) 8.3 L [place] % (Auto) 21.4 H Eos % (Auto) 4.1 Baso % (Auto) 0.4 Absolute Neuts (auto) 4.7 Absolute Lymphs (auto) 0.6 L Absolute Monos (auto) 1.5 H Absolute Eos (auto) 0.3 Absolute Basos (auto) 0 Absolute Nucleated RBC 0 Nucleated RBC % 0.1 Sodium 135 Potassium 3.9 Chloride 104 Carbon Dioxide 23 Anion Gap 8 BUN 22 Creatinine 1.02 Est GFR ( Amer) 91.3 Est GFR (Non-Af Amer) 71.0 BUN/Creatinine Ratio 21.6 H Glucose 126 H POC Glucose (mg/dL) 135 H Calcium 8.1 L Phosphorus 3.1 Magnesium 2.3 Total Bilirubin 0.60 AST 13 ALT 17 Alkaline Phosphatase 36 Total Protein 5.7 L Albumin 2.9 L Globulin 2.8 Albumin/Globulin Ratio 1.0 Prealbumin 6 L Triglycerides 144 Cholesterol 109 Microbiology and Other Data: Microbiology 06/28/17 07:25 Stool Stool Occult Blood ([facility]) - Final Assess/Plan/Problems-Billing Assessment: 76 yo m with h/o RA, HTN, recurrent diverticular bleed presents with BRBPR and ACUTE anemia s/p pRBC transfusions. now s/p right colectomy 06/29/17 PM. c/b post op ileus vs bowel obstruction . Orthostatic with LH 07/02 and 07/03. Now NGT for continued SBO. Planned TPN - Patient Problems (1) Anemia Current Visit: Yes Status: Acute Code(s): D64.9 - ANEMIA, UNSPECIFIED SNOMED Code(s): 959876577 Comment: Stable. Repeat Fe/TIBC showed iron deficiency. IV iron sucrose given 07/08. Possible concurrent B12 deficiency. B12 level could easily reflect the B12 in the TPN solution. Methylmalonic acid level pending. Soluble transferrin factor ordered for 07/11, turn-around should be a few days. (2) Ileus following gastrointestinal surgery Current Visit: Yes Status: Acute Code(s): K91.30 - POSTPROC INTESTINAL OBST , UNSP TO PARTIAL VERSUS COMPLETE SNOMED Code(s): 167048589 Comment: S/P R hemicolectomy 06/29/17. Note NG drainage 2500 ml 07/06-07/07. TPN infusing. Encourage ambulation frequently. Stop po meds for now. (3) Fever Current Visit: Yes Status: Acute Code(s): R50.9 - FEVER, UNSPECIFIED SNOMED Code(s): 777425141 Comment: No fever since 07/07 19:45 hrs. Status and Disposition: inpatient. Continued ileus vs SBO.
[2017-07-10] MEDS: Ondansetron INJ* 2 MG/ML VIAL IV PRN (22:26)
[2017-07-11] MEDS ORDERED: Acetaminophen SUPP* 650 MG SUPP PR PRN (01:35)
[2017-07-11] MEDS: Morphine INJ* 2 MG/ML 1 ML CARPUJECT IV PRN (02:38)
[2017-07-11] MEDS: Pantoprazole IV* 40 MG IV SCH (05:59)
[2017-07-11] MEDS: Heparin VIAL(*) 5000 UNITS/ML VIAL (FIVE THOUSAND) SUBCUT SCH ×3 (06:12→21:42)
[2017-07-11] MEDS: Saline NASAL SPRAY 0.65%* BTL BOTH NARES SCH ×2 (07:50→21:41)
[2017-07-11] MEDS: Ondansetron INJ* 2 MG/ML VIAL IV PRN (07:54)
--- NOTE | 2017-07-11 10:06 | PN ---
Progress Note - Progress Note Date of Service: 07/11/17 SOAP: Subjective: Feels a little stronger today-ambulated in halls more yesterday Still no flatus or BM No abdominal pain Objective: Tamx 100.7 on one occasion Temp Pulse Resp BP Pulse Ox 98.8 F 79 20 142/57 96 07/11/17 07:26 07/11/17 07:26 07/11/17 07:26 07/11/17 07:26 07/11/17 07:26 Intake & Output 07/09/17 07/10/17 07/11/17 07/12/17 06:59 06:59 06:59 06:59 Intake Total 1413 1170 1122 0 Output Total 5050 2925 2350 350 Balance -0667 -1755 -1228 -350 Weight 193 lb 9.6 oz 191 lb 191 lb 12.8 oz Intake: IV Fluids 92 IV Tylenol 92 TPN/PPN 1321 1170 1122 Oral 0 0 0 0 Output: NG Tube Drainage Amount 4450 1900 1250 Urine 600 1025 1100 350 Other: Estimated Void Medium # Bowel Movements 0 0 0 # Voids 1 PEX: Comfortable Lungs are clear Abd is soft and only slightly distended. Incisions are clean and dry Bowel sounds are present and are not high pitched or tinkling. Appropriate incisional tenderness. No labs Assessment: S/P laparoscopic right colectomy for hemorrhage--diverticular disease Post-op Ileus--decreased NGT output in last 24 hours, bowel sounds present today Plan: Continue NGT and TPN Check labs in AM Increase activity.
--- NOTE | 2017-07-11 13:16 | PN ---
Subjective Date of Service: 07/11/17 Interval History: No new c/o. Objective Active Medications: Acetaminophen (Tylenol Supp*) 650 mg MD Q6H PRN PRN Reason: FEVER/PAIN Last Admin: 07/11/17 07:54 Dose: 650 mg Heparin Sodium (Porcine) (Heparin Vial(*)) 5,000 units SUBCUT Q8HR [facility] Last Admin: 07/11/17 06:12 Dose: 5,000 units Heparin Sodium (Porcine) (Heparin Flush Picc/Ml/Cvc(*)) 1 - 3 ml FLUSH 0600, 1800 [facility] PRN Reason: Protocol Last Admin: 07/11/17 05:59 Dose: 1 ml Sodium Chloride 100 meq/Potassium Chloride 50 meq/Potassium Phosphate 15 mmole/ Calcium Gluconate 15 meq/Magnesium Sulfate 10 meq/Multivitamins 10 ml/ Trace Metals 1 ml/ Dextrose 1,000 ml / Amino Acids 850 ml/ Sterile Water 150 ml/ Fat Emulsion Intravenous 250 ml/ Nutrition (Parenteral) 2,350.721 mls @ 97.947 mls/ hr CENT\PICC 1700 [facility] Last Admin: 07/10/17 16:57 Dose: 97.947 mls/hr Lidocaine (Xylocaine 2% Viscous*) 20 ml SWISH SPIT TID PRN PRN Reason: SORE THROAT Last Admin: 07/10/17 22:18 Dose: 15 ml Morphine Sulfate (Morphine Inj (Syringe)*) 2 mg IV Q4H PRN PRN Reason: PAIN - MILD Last Admin: 07/11/17 02:38 Dose: 2 mg Ondansetron HCl (Zofran Inj*) 4 mg IV Q6H PRN PRN Reason: NAUSEA Last Admin: 07/11/17 07:54 Dose: 4 mg Pantoprazole Sodium (Protonix Iv*) 40 mg IV Q24H [facility] Last Admin: 07/11/17 05:59 Dose: 40 mg Phenol/Menthol (Chloroseptic Throat [place]*) 1 spray MT TID PRN PRN Reason: SORE THROAT Last Admin: 07/07/17 03:24 Dose: 1 spray Sodium Chloride (Sodium Chloride 0.65% Nasal [place]*) 2 spray BOTH NARES BID [facility] Last Admin: 07/11/17 07:50 Dose: Not Given Vital Signs - 8 hr 07/11/17 07:26 Temperature 98.8 F Pulse Rate 79 Respiratory 20 Rate Blood Pressure 142/57 (mmHg) O2 Sat by Pulse 96 Oximetry Oxygen Devices in Use Now: None Appearance: Alert, patly up in bed. In fair spirits. Looks comfortable. Result Diagrams: 07/09/17 06:10 07/10/17 06:35 Additional Lab and Data: Laboratory Results - last 24 hr 07/06/17 07/06/17 07/06/17 04:28 11:21 19:39 WBC 7.2 RBC 2.58 L Hgb 8.3 L Hct 24 L MCV 94 MCH 32 H MCHC 34 RDW 16 H Plt Count 389 MPV 8 Neut % (Auto) 65.8 Lymph % (Auto) 8.3 L [place] % (Auto) 21.4 H Eos % (Auto) 4.1 Baso % (Auto) 0.4 Absolute Neuts (auto) 4.7 Absolute Lymphs (auto) 0.6 L Absolute Monos (auto) 1.5 H Absolute Eos (auto) 0.3 Absolute Basos (auto) 0 Absolute Nucleated RBC 0 Nucleated RBC % 0.1 Sodium 135 Potassium 3.9 Chloride 104 Carbon Dioxide 23 Anion Gap 8 BUN 22 Creatinine 1.02 Est GFR ( Amer) 91.3 Est GFR (Non-Af Amer) 71.0 BUN/Creatinine Ratio 21.6 H Glucose 126 H POC Glucose (mg/dL) 135 H Calcium 8.1 L Phosphorus 3.1 Magnesium 2.3 Total Bilirubin 0.60 AST 13 ALT 17 Alkaline Phosphatase 36 Total Protein 5.7 L Albumin 2.9 L Globulin 2.8 Albumin/Globulin Ratio 1.0 Prealbumin 6 L Triglycerides 144 Cholesterol 109 Microbiology and Other Data: Microbiology 06/28/17 07:25 Stool Stool Occult Blood ([facility]) - Final Assess/Plan/Problems-Billing Assessment: 76 yo m with h/o RA, HTN, recurrent diverticular bleed presents with BRBPR and ACUTE anemia s/p pRBC transfusions. now s/p right colectomy 06/29/17 PM. c/b post op ileus vs bowel obstruction . Orthostatic with LH 07/02 and 07/03. Now NGT for continued SBO. Planned TPN - Patient Problems (1) Anemia Current Visit: Yes Status: Acute Code(s): D64.9 - ANEMIA, UNSPECIFIED SNOMED Code(s): 008137090 Comment: Stable. Repeat Fe/TIBC showed iron deficiency. IV iron sucrose given 07/08. Possible concurrent B12 deficiency. B12 level could easily reflect the B12 in the TPN solution. Methylmalonic acid level pending. Soluble transferrin factor ordered for 07/11, turn-around should be a few days. (2) Ileus following gastrointestinal surgery Current Visit: Yes Status: Acute Code(s): K91.30 - POSTPROC INTESTINAL OBST , UNSP TO PARTIAL VERSUS COMPLETE SNOMED Code(s): 832530263 Comment: S/P R hemicolectomy 06/29/17. Note NG drainage 2500 ml 07/06-07/07. TPN infusing. Encourage ambulation frequently. Stop po meds for now. (3) Fever Current Visit: Yes Status: Acute Code(s): R50.9 - FEVER, UNSPECIFIED SNOMED Code(s): 881955437 Comment: No fever since 07/07 19:45 hrs. Status and Disposition: inpatient. Continued ileus vs SBO.
[2017-07-11] MEDS ORDERED: Acetaminophen IV 1GM/100ML * 100 ML IVPB PRN (15:33)
[2017-07-11] MEDS: TPN* 24 HR with Sodium Chloride Conc 23.4%* 100 MEQ, Potassium Chloride TPN 50 MEQ, Pot... CENT\\PICC SCH ×12 (16:48)
[2017-07-11] MEDS ORDERED: PREMIX* 0 ML with Acetaminophen IV 1GM/100ML * 1,000 MG IVPB PRN ×2 (18:00)
[2017-07-12] MEDS: Morphine INJ* 2 MG/ML 1 ML CARPUJECT IV PRN ×6 (00:29→23:10)
[2017-07-12] MEDS: Ondansetron INJ* 2 MG/ML VIAL IV PRN ×3 (00:33→23:10)
[2017-07-12] MEDS: Pantoprazole IV* 40 MG IV SCH (06:52)
[2017-07-12] MEDS: Heparin VIAL(*) 5000 UNITS/ML VIAL (FIVE THOUSAND) SUBCUT SCH ×3 (06:55→20:45)
[2017-07-12 07:18] LABS: Hematocrit 26 % (42-52); Hemoglobin 8.7 g/dl (14.0-18.0); Mean Corpuscular HGB Conc 33 g/dl (31-36); Mean Corpuscular Hemoglobin 31 pg (27-31); Mean Corpuscular Volume 94 fL (80-94); Mean Platelet Volume 9 um3 (7.4-10.4); Platelet Count 418 10^3/ul (150-450); Red Blood Count 2.78 10^6/ul (4.0-5.4); Red Cell Distribution Width 18 % (10.5-15); White Blood Count 17.6 10^3/ul (3.5-10.8)
[2017-07-12 07:33] LABS: EGFR Non-African American 104.5 (>60)
[2017-07-12] MEDS: Saline NASAL SPRAY 0.65%* BTL BOTH NARES SCH ×3 (08:08→20:47)
[2017-07-12 08:31] LABS: ABS Basophils 0.1 10^3/ul (0-0.2); ABS Eosinophils 0.4 10^3/ul (0-0.6); ABS Lymphocytes 1.6 10^3/ul (1.0-4.8); ABS Monocytes 1.7 10^3/ul (0-0.8); ABS Neutrophils 13.7 10^3/ul (1.5-7.7); ABS Nucleated RBC 0 10^3/ul; Eosinophil % 2.5 % (0-6); Lymphocyte % 8.8 % (25-47); Nucleated Red Blood Cells % 0.1
--- NOTE | 2017-07-12 08:40 | PN ---
Subjective Date of Service: 07/12/17 Interval History: No new c/o. Passing flatus. Objective Active Medications: Heparin Sodium (Porcine) (Heparin Vial(*)) 5,000 units SUBCUT Q8HR [facility] [place] Last Admin: 07/12/17 06:55 Dose: 5,000 units Heparin Sodium (Porcine) (Heparin Flush Picc/Ml/Cvc(*)) 1 - 3 ml FLUSH 0600, 1800 [facility] PRN Reason: Protocol Last Admin: 07/12/17 08:14 Dose: 1 ml Sodium Chloride 100 meq/Potassium Chloride 50 meq/Potassium Phosphate 15 mmole/ Calcium Gluconate 15 meq/Magnesium Sulfate 10 meq/Multivitamins 10 ml/ Trace Metals 1 ml/ Dextrose 1,000 ml / Amino Acids 850 ml/ Sterile Water 150 ml/ Fat Emulsion Intravenous 250 ml/ Nutrition (Parenteral) 2,350.721 mls @ 97.947 mls/ hr CENT\PICC 1700 [facility] [place] Last Admin: 07/11/17 16:48 Dose: 97.947 mls/hr Acetaminophen (Ofirmev*) 100 mls @ 0 mls/hr IVPB Q6H PRN PRN Reason: . Lidocaine (Xylocaine 2% Viscous*) 20 ml SWISH SPIT TID PRN PRN Reason: SORE THROAT Last Admin: 07/10/17 22:18 Dose: 15 ml Morphine Sulfate (Morphine Inj (Syringe)*) 2 mg IV Q4H PRN PRN Reason: PAIN - MILD Last Admin: 07/12/17 08:08 Dose: 2 mg Ondansetron HCl (Zofran Inj*) 4 mg IV Q6H PRN PRN Reason: NAUSEA Last Admin: 07/12/17 08:14 Dose: 4 mg Pantoprazole Sodium (Protonix Iv*) 40 mg IV Q24H [facility] [place] Last Admin: 07/12/17 06:52 Dose: 40 mg Phenol/Menthol (Chloroseptic Throat [place]*) 1 spray MT TID PRN PRN Reason: SORE THROAT Last Admin: 07/07/17 03:24 Dose: 1 spray Sodium Chloride (Sodium Chloride 0.65% Nasal [place]*) 2 spray BOTH NARES BID [facility] [place] Last Admin: 07/12/17 08:08 Dose: Not Given Vital Signs - 8 hr 07/12/17 07/12/17 03:56 08:08 Temperature 99.4 F Pulse Rate 77 Respiratory 20 16 Rate Blood Pressure 121/49 (mmHg) O2 Sat by Pulse 97 Oximetry Oxygen Devices in Use Now: None Appearance: Alert, sitting up in bed. In fair spirits. Looks comfortable. Eyes: No Scleral Icterus Abdominal: NL Sounds; No Tenderness; No Distention, No Hepatosplenomegaly, - Extremities: No Edema, No Clubbing, Cyanosis, - Skin: No Rash or Ulcers, No Nodules or Sclerosis, - Neurological: Alert and Oriented x 3, NL Sensation Result Diagrams: 07/12/17 06:50 07/12/17 06:50 Additional Lab and Data: Laboratory Results - last 24 hr 07/06/17 07/06/17 07/06/17 04:28 11:21 19:39 WBC 7.2 RBC 2.58 L Hgb 8.3 L Hct 24 L MCV 94 MCH 32 H MCHC 34 RDW 16 H Plt Count 389 MPV 8 Neut % (Auto) 65.8 Lymph % (Auto) 8.3 L [place] % (Auto) 21.4 H Eos % (Auto) 4.1 Baso % (Auto) 0.4 Absolute Neuts (auto) 4.7 Absolute Lymphs (auto) 0.6 L Absolute Monos (auto) 1.5 H Absolute Eos (auto) 0.3 Absolute Basos (auto) 0 Absolute Nucleated RBC 0 Nucleated RBC % 0.1 Sodium 135 Potassium 3.9 Chloride 104 Carbon Dioxide 23 Anion Gap 8 BUN 22 Creatinine 1.02 Est GFR ( Amer) 91.3 Est GFR (Non-Af Amer) 71.0 BUN/Creatinine Ratio 21.6 H Glucose 126 H POC Glucose (mg/dL) 135 H Calcium 8.1 L Phosphorus 3.1 Magnesium 2.3 Total Bilirubin 0.60 AST 13 ALT 17 Alkaline Phosphatase 36 Total Protein 5.7 L Albumin 2.9 L Globulin 2.8 Albumin/Globulin Ratio 1.0 Prealbumin 6 L Triglycerides 144 Cholesterol 109 Microbiology and Other Data: Microbiology 06/28/17 07:25 Stool Stool Occult Blood ([facility]RIS) - Final Assess/Plan/Problems-Billing Assessment: 76 yo m with h/o RA, HTN, recurrent diverticular bleed presents with BRBPR and ACUTE anemia s/p pRBC transfusions. now s/p right colectomy 06/29/17 PM. c/b post op ileus vs bowel obstruction . Orthostatic with LH 07/02 and 07/03. Now NGT for continued SBO. Planned TPN - Patient Problems (1) Anemia Current Visit: Yes Status: Acute Code(s): D64.9 - ANEMIA, UNSPECIFIED SNOMED Code(s): 915628276 Comment: Stable. Repeat Fe/TIBC showed iron deficiency. IV iron sucrose given 07/08. Possible concurrent B12 deficiency. B12 level could easily reflect the B12 in the TPN solution, but the methylmalonic acid level was wnl. Soluble transferrin factor pending. Hct 26 on 07/12/17. (2) Ileus following gastrointestinal surgery Current Visit: Yes Status: Acute Code(s): K91.30 - POSTPROC INTESTINAL OBST , UNSP TO PARTIAL VERSUS COMPLETE SNOMED Code(s): 895931599 Comment: S/P R hemicolectomy 06/29/17. Note NG drainage 2500 ml 07/06-07/07. TPN infusing. Encourage ambulation frequently. Stop po meds for now. (3) Fever Current Visit: Yes Status: Acute Code(s): R50.9 - FEVER, UNSPECIFIED SNOMED Code(s): 623067779 Comment: No fever since 07/07 19:45 hrs. Status and Disposition: inpatient. Continued ileus vs SBO.
[2017-07-12] MEDS: Phenol 1.4% Spray* 177 ML BTL MT PRN ×3 (12:06→20:46)
--- NOTE | 2017-07-12 13:49 | PN ---
Progress Note - Progress Note Date of Service: 07/12/17 SOAP: Subjective: Some flatus today. Pain in his throat for which he finds the morphine helps. No chills/fever. Objective: Vital Signs Temp 98.3 F 07/12/17 07:38 Pulse 75 07/12/17 07:38 Resp 16 07/12/17 12:06 BP 146/65 07/12/17 07:38 Pulse Ox 97 07/12/17 07:38 Intake & Output 07/11/17 07/12/17 07/12/17 18:59 06:59 18:59 Intake Total 2264 0 0 Output Total 1750 1000 Balance 514 -1000 0 Intake: TPN/PPN 2264 Oral 0 0 0 Output: NG Tube Drainage Amount 800 600 Urine 950 400 Other: Estimated Void Medium # Voids 1 NAD; sleeping but arousable; A&Ox3 Pulm: CTA B Cor: reg s1s2 Abd: incis c/d/i no erythema; +BS; soft; NT Laboratory Results - last 24 hr 07/08/17 07/12/17 07/12/17 05:30 06:50 06:50 WBC 17.6 H RBC 2.78 L Hgb 8.7 L Hct 26 L MCV 94 MCH 31 MCHC 33 RDW 18 H Plt Count 418 MPV 9 Neut % (Auto) 78.2 Lymph % (Auto) 8.8 L [place] % (Auto) 9.8 H Eos % (Auto) 2.5 Baso % (Auto) 0.7 Absolute Neuts (auto) 13.7 H Absolute Lymphs (auto) 1.6 Absolute Monos (auto) 1.7 H Absolute Eos (auto) 0.4 Absolute Basos (auto) 0.1 Absolute Nucleated RBC 0 Nucleated RBC % 0.1 Sodium 134 Potassium 4.2 Chloride 108 Carbon Dioxide 20 L Anion Gap 6 BUN 22 Creatinine 0.73 Est GFR ( Amer) 134.3 Est GFR (Non-Af Amer) 104.5 BUN/Creatinine Ratio 30.1 H Glucose 130 H Calcium 8.5 L Methylmalonic Acid 0.21 Assessment: POD#13 s/p R colon. Resolving ileus. Leukocytosis with no clear source for infection. Plan: CT abd/pelvis today. Cont TPN.
[2017-07-12] MEDS ORDERED: Iohexol 300* (CONTRAST) 10 ML SDV IV ONE (14:54)
--- NOTE | 2017-07-12 16:35 | RAD ---
CLINICAL HISTORY: Leukocytosis, status post right colectomy, ileus versus small bowel obstruction COMPARISON: September 03, 2014 TECHNIQUE: Multiple contiguous axial CT scans were obtained of the abdomen and pelvis after the administration of intravenous contrast. Coronal and sagittal multiplanar reformations are submitted for review. Oral contrast was administered. Delayed images were obtained through the abdomen and pelvis. FINDINGS: The liver is incompletely included within the [id number] the current examination. Evaluation is limited by high density oral contrast within the stomach. LUNG BASES: The lung bases are clear. LIVER: The dome of the liver is incompletely included within the [id number] the current examination. The liver is diffusely low in attenuation compared to the spleen. There are no focal hepatic parenchymal masses. BILE DUCTS: There is no intrahepatic or extrahepatic biliary dilatation. GALLBLADDER: The gallbladder is normal, without pericholecystic inflammatory change. PANCREAS: The pancreas is normal, without mass or ductal dilatation. SPLEEN: Normal in size and appearance. UPPER GI TRACT: Evaluation of the gastrointestinal tract is limited by incomplete gastric distention. Evaluation is also limited by streak artifact from high-density oral contrast within the stomach. A gastric tube is noted in a prepyloric position. SMALL BOWEL AND MESENTERY: There is diffuse distention and mild dilatation of the small bowel without clear transition point COLON: The patient appears to be status post right hemicolectomy. There is diverticulosis of the descending and sigmoid colon. ADRENALS: Normal bilaterally. KIDNEYS: The kidneys are normal in shape, size, contour, and axis. There is no hydronephrosis or nephrolithiasis. BLADDER: The bladder is smooth in contour. PELVIC ORGANS: The prostate gland is normal. The seminal vesicles are symmetric. AORTA: There is calcific atherosclerotic disease of the abdominal aorta and its branches, without aneurysmal dilatation IVC: Unremarkable LYMPH NODES: There is no lymphadenopathy by size criteria. ABDOMINAL WALL: There is no evidence for abdominal wall hernia. BONES AND SOFT TISSUES: Degenerative changes are noted. OTHER: None IMPRESSION: 1. THERE IS DIFFUSE DISTENTION AND MILD DILATATION OF THE SMALL BOWEL WITHOUT TRANSITION POINT. THE DIFFERENTIAL INCLUDES ILEUS VERSUS EARLY OBSTRUCTION. RECOMMEND ATTENTION ON FOLLOW-UP IMAGING. 2. DIVERTICULOSIS 3. FATTY LIVER. 4. ATHEROSCLEROSIS. 5. POSTSURGICAL CHANGE
[2017-07-12] MEDS: TPN* 24 HR with Sodium Chloride Conc 23.4%* 100 MEQ, Potassium Chloride TPN 50 MEQ, Pot... CENT\\PICC SCH ×12 (17:26)
[2017-07-12] MEDS ORDERED: Ketorolac INJ* 15 MG/ML 1 ML VIAL IV PUSH PRN (17:41)
[2017-07-13] MEDS: Phenol 1.4% Spray* 177 ML BTL MT PRN ×3 (04:27→18:11)
[2017-07-13] MEDS: Morphine INJ* 2 MG/ML 1 ML CARPUJECT IV PRN ×5 (04:27→18:11)
[2017-07-13] MEDS: Ondansetron INJ* 2 MG/ML VIAL IV PRN ×3 (04:27→18:11)
[2017-07-13] MEDS: Heparin VIAL(*) 5000 UNITS/ML VIAL (FIVE THOUSAND) SUBCUT SCH ×3 (05:50→21:30)
[2017-07-13] MEDS: Pantoprazole IV* 40 MG IV SCH (05:50)
[2017-07-13] MEDS: Saline NASAL SPRAY 0.65%* BTL BOTH NARES SCH ×2 (08:42→20:34)
--- NOTE | 2017-07-13 11:17 | PN ---
Progress Note - Progress Note Date of Service: 07/13/17 SOAP: Subjective: Passing flatus. NGT clamped currently and no N/V. Objective: Vital Signs Temp 98.3 F 07/13/17 07:27 Pulse 79 07/13/17 07:27 Resp 16 07/13/17 08:40 BP 136/55 07/13/17 07:27 Pulse Ox 98 07/13/17 08:40 NAD Abd: incis c/d/i; no erythema; soft; +BS. NT. Intake & Output 07/12/17 07/13/17 07/13/17 18:59 06:59 18:59 Intake Total 2341 0 Output Total 200 975 150 Balance 2141 -975 -150 Weight 187 lb 3.2 oz Intake: TPN/PPN 2341 Oral 0 0 Output: NG Tube Drainage Amount 375 Urine 200 400 150 [place] 200 Other: # Bowel Movements 0 Assessment: POD#14 s/p lap R colectomy Plan: NGT clamping trials today. Cont TPN. Recheck labs in AM.
[2017-07-13] MEDS: TPN* 24 HR with Sodium Chloride Conc 23.4%* 100 MEQ, Potassium Chloride TPN 50 MEQ, Pot... CENT\\PICC SCH ×12 (17:57)
--- NOTE | 2017-07-13 18:41 | PN ---
Subjective Date of Service: 07/13/17 Interval History: no nausea, vomiting with NG clamped. +flatus Family History: Unchanged from Admission Social History: Unchanged from Admission Past Medical History: Unchanged from Admission Objective Active Medications: Heparin Sodium (Porcine) (Heparin Vial(*)) 5,000 units SUBCUT Q8HR [facility] Last Admin: 07/13/17 15:09 Dose: 5,000 units Heparin Sodium (Porcine) (Heparin Flush Picc/Ml/Cvc(*)) 1 - 3 ml FLUSH 0600, 1800 [facility] PRN Reason: Protocol Last Admin: 07/13/17 17:57 Dose: 1 ml Sodium Chloride 100 meq/Potassium Chloride 50 meq/Potassium Phosphate 15 mmole/ Calcium Gluconate 15 meq/Magnesium Sulfate 10 meq/Multivitamins 10 ml/ Trace Metals 1 ml/ Dextrose 1,000 ml / Amino Acids 850 ml/ Sterile Water 150 ml/ Fat Emulsion Intravenous 250 ml/ Nutrition (Parenteral) 2,350.721 mls @ 97.947 mls/ hr CENT\PICC 1700 [facility] Last Admin: 07/13/17 17:57 Dose: 97.947 mls/hr Ketorolac Tromethamine (Toradol Inj*) 15 mg IV PUSH Q6H PRN PRN Reason: PAIN Lidocaine (Xylocaine 2% Viscous*) 20 ml SWISH SPIT TID PRN PRN Reason: SORE THROAT Last Admin: 07/10/17 22:18 Dose: 15 ml Morphine Sulfate (Morphine Inj (Syringe)*) 2 mg IV Q2H PRN PRN Reason: PAIN - MILD Last Admin: 07/13/17 18:11 Dose: 2 mg Ondansetron HCl (Zofran Inj*) 4 mg IV Q6H PRN PRN Reason: NAUSEA Last Admin: 07/13/17 18:11 Dose: 4 mg Pantoprazole Sodium (Protonix Iv*) 40 mg IV Q24H [facility] Last Admin: 07/13/17 05:50 Dose: 40 mg Phenol/Menthol (Chloroseptic Throat [place]*) 1 spray MT Q2H PRN PRN Reason: SORE THROAT Last Admin: 07/13/17 18:11 Dose: 1 spray Sodium Chloride (Sodium Chloride 0.65% Nasal [place]*) 2 spray BOTH NARES BID [facility] Last Admin: 07/13/17 08:42 Dose: Not Given Vital Signs - 8 hr 07/13/17 07/13/17 07/13/17 11:10 11:26 12:30 Temperature 98.8 F Pulse Rate 75 Respiratory 18 16 16 Rate Blood Pressure 125/60 (mmHg) O2 Sat by Pulse 94 Oximetry 07/13/17 07/13/17 07/13/17 14:52 14:59 18:11 Temperature 99.1 F Pulse Rate 75 Respiratory 16 16 Rate Blood Pressure 121/63 (mmHg) O2 Sat by Pulse 98 Oximetry Oxygen Devices in Use Now: None Appearance: no distress, well appearing Eyes: No Scleral Icterus Ears/Nose/Mouth/Throat: NL Teeth, Lips, Gums, - - NGT clamped Neck: NL Appearance and Movements; NL JVP Respiratory: Symmetrical Chest Expansion and Respiratory Effort Cardiovascular: NL Sounds; No Murmurs; No JVD, RRR Abdominal: - - incisions clean, dinah in tact Lymphatic: No Cervical Adenopathy Extremities: No Edema Skin: No Rash or Ulcers Neurological: Alert and Oriented x 3 Result Diagrams: 07/12/17 06:50 07/12/17 06:50 Additional Lab and Data: Laboratory Results - last 24 hr 07/06/17 07/06/17 07/06/17 04:28 11:21 19:39 WBC 7.2 RBC 2.58 L Hgb 8.3 L Hct 24 L MCV 94 MCH 32 H MCHC 34 RDW 16 H Plt Count 389 MPV 8 Neut % (Auto) 65.8 Lymph % (Auto) 8.3 L [place] % (Auto) 21.4 H Eos % (Auto) 4.1 Baso % (Auto) 0.4 Absolute Neuts (auto) 4.7 Absolute Lymphs (auto) 0.6 L Absolute Monos (auto) 1.5 H Absolute Eos (auto) 0.3 Absolute Basos (auto) 0 Absolute Nucleated RBC 0 Nucleated RBC % 0.1 Sodium 135 Potassium 3.9 Chloride 104 Carbon Dioxide 23 Anion Gap 8 BUN 22 Creatinine 1.02 Est GFR ( Amer) 91.3 Est GFR (Non-Af Amer) 71.0 BUN/Creatinine Ratio 21.6 H Glucose 126 H POC Glucose (mg/dL) 135 H Calcium 8.1 L Phosphorus 3.1 Magnesium 2.3 Total Bilirubin 0.60 AST 13 ALT 17 Alkaline Phosphatase 36 Total Protein 5.7 L Albumin 2.9 L Globulin 2.8 Albumin/Globulin Ratio 1.0 Prealbumin 6 L Triglycerides 144 Cholesterol 109 Microbiology and Other Data: Microbiology 06/28/17 07:25 Stool Stool Occult Blood (CHRIS) - Final Assess/Plan/Problems-Billing Assessment: 76 yo m with h/o RA, HTN, recurrent diverticular bleed presents with BRBPR and ACUTE anemia s/p pRBC transfusions. now s/p right colectomy 06/29/17 PM. c/b post op ileus vs bowel obstruction . Now NGT for continued SBO. On TPN - Patient Problems (1) Anemia Current Visit: Yes Status: Acute Code(s): D64.9 - ANEMIA, UNSPECIFIED SNOMED Code(s): 865588154 Comment: Stable. Repeat Fe/TIBC showed iron deficiency. Possible concurrent B12 deficiency. (2) Ileus following gastrointestinal surgery Current Visit: Yes Status: Acute Code(s): K91.30 - POSTPROC INTESTINAL OBST , UNSP TO PARTIAL VERSUS COMPLETE SNOMED Code(s): 455498412 Comment: S/P R hemicolectomy 06/29/17. NG clamped now; plan to DC today pending surgery evaluation. TPN infusing. Encourage ambulation frequently. (3) Orthostatic dizziness Current Visit: Yes Status: Acute Code(s): R42 - DIZZINESS AND GIDDINESS SNOMED Code(s): 829791309 Comment: orthostatics: 07/02: BP fell 27 points and HR increased 18 bpm from lying to standing yesterday. IVF. 07/03 BP fell 26 points and HR increased 13 bpm s/p pRBC 07/02 recheck tomorrow Status and Disposition: inpatient. Continued ileus vs SBO.
[2017-07-14] MEDS: Heparin VIAL(*) 5000 UNITS/ML VIAL (FIVE THOUSAND) SUBCUT SCH ×3 (05:27→21:08)
[2017-07-14] MEDS: Pantoprazole IV* 40 MG IV SCH (05:27)
[2017-07-14 05:44] LABS: Hematocrit 26 % (42-52); Hemoglobin 8.4 g/dl (14.0-18.0); Mean Corpuscular HGB Conc 33 g/dl (31-36); Mean Corpuscular Hemoglobin 30 pg (27-31); Mean Corpuscular Volume 93 fL (80-94); Mean Platelet Volume 8 um3 (7.4-10.4); Platelet Count 450 10^3/ul (150-450); Red Blood Count 2.76 10^6/ul (4.0-5.4); Red Cell Distribution Width 17 % (10.5-15); White Blood Count 17.6 10^3/ul (3.5-10.8)
[2017-07-14 05:58] LABS: EGFR Non-African American 92.6 (>60)
[2017-07-14 06:32] LABS: ABS Basophils 0.1 10^3/ul (0-0.2); ABS Eosinophils 0.4 10^3/ul (0-0.6); ABS Lymphocytes 1.9 10^3/ul (1.0-4.8); ABS Monocytes 1.4 10^3/ul (0-0.8); ABS Neutrophils 13.8 10^3/ul (1.5-7.7); ABS Nucleated RBC 0 10^3/ul; Eosinophil % 2.1 % (0-6); Lymphocyte % 10.8 % (25-47); Nucleated Red Blood Cells % 0
[2017-07-14] MEDS: Saline NASAL SPRAY 0.65%* BTL BOTH NARES SCH ×2 (10:23→21:09)
--- NOTE | 2017-07-14 11:28 | PN ---
Progress Note - Progress Note Date of Service: 07/14/17 SOAP: Subjective: He reports no N/V overnight. C/o throat pain "deep down" and ice made it burn. Water was ok. Also c/o diarrhea, uncontrollable, and exhausting. Objective: Vital Signs Temp 98.8 F 07/14/17 07:56 Pulse 68 07/14/17 07:46 Resp 18 07/14/17 07:46 BP 113/51 07/14/17 07:46 Pulse Ox 97 07/14/17 07:46 Gen: NAD Abd: incis c/d/i no erythema; soft and ND/NT. Intake & Output 07/13/17 07/14/17 07/14/17 18:59 06:59 18:59 Intake Total 120 Output Total 710 550 Balance -710 -430 Weight 186 lb 9.6 oz Intake: Oral 120 Output: NG Tube Drainage Amount 185 Urine 525 550 Other: Date of Last Bowel 07/14/17 Movement # Bowel Movements 0 1 Estimated Stool Amount Medium Medium Laboratory Results - last 24 hr 07/11/17 07/14/17 07/14/17 06:10 05:30 05:30 WBC 17.6 H RBC 2.76 L Hgb 8.4 L Hct 26 L MCV 93 MCH 30 MCHC 33 RDW 17 H Plt Count 450 MPV 8 Neut % (Auto) 78.3 Lymph % (Auto) 10.8 L [place] % (Auto) 8.2 Eos % (Auto) 2.1 Baso % (Auto) 0.6 Absolute Neuts (auto) 13.8 H Absolute Lymphs (auto) 1.9 Absolute Monos (auto) 1.4 H Absolute Eos (auto) 0.4 Absolute Basos (auto) 0.1 Absolute Nucleated RBC 0 Nucleated RBC % 0 Sodium 132 L Potassium 4.4 Chloride 109 Carbon Dioxide 19 L Anion Gap 4 BUN 25 H Creatinine 0.81 Est GFR ( Amer) 119.2 Est GFR (Non-Af Amer) 92.6 BUN/Creatinine Ratio 30.9 H Glucose 127 H Calcium 8.5 L Phosphorus 3.6 Magnesium 2.1 Mily Transferrin Receptr 4.7 H Total Bilirubin 0.50 AST 63 H ALT 122 H Alkaline Phosphatase 101 Total Protein 6.1 L Albumin 2.8 L Globulin 3.3 Albumin/Globulin Ratio 0.8 L Prealbumin 11 L Triglycerides 137 Cholesterol 90 Assessment: POD#15 s/p lap R colon. Resolved ileus. Leukocytosis of uncertain etiology. Diarrhea expected as ileus resolves. Plan: Adv diet. Increase activity. Can stop TPN after bag finishes. D/d skin dinah.
--- NOTE | 2017-07-14 17:47 | PN ---
Subjective Date of Service: 07/14/17 Interval History: still has sore throat since the ng tube was pulled. has been having diarrhea. tolerating a diet but doesn't enjoy eating due to diarrhea and feeling like food goes "right through him." Family History: Unchanged from Admission Social History: Unchanged from Admission Past Medical History: Unchanged from Admission Objective Active Medications: Heparin Sodium (Porcine) (Heparin Vial(*)) 5,000 units SUBCUT Q8HR [facility] Last Admin: 07/14/17 14:48 Dose: 5,000 units Heparin Sodium (Porcine) (Heparin Flush Picc/Ml/Cvc(*)) 1 - 3 ml FLUSH 0600, 1800 [facility] PRN Reason: Protocol Last Admin: 07/14/17 05:32 Dose: 1 ml Ketorolac Tromethamine (Toradol Inj*) 15 mg IV PUSH Q6H PRN PRN Reason: PAIN Lidocaine (Xylocaine 2% Viscous*) 20 ml SWISH SPIT TID PRN PRN Reason: SORE THROAT Last Admin: 07/10/17 22:18 Dose: 15 ml Morphine Sulfate (Morphine Inj (Syringe)*) 2 mg IV Q2H PRN PRN Reason: PAIN - MILD Last Admin: 07/13/17 18:11 Dose: 2 mg Ondansetron HCl (Zofran Inj*) 4 mg IV Q6H PRN PRN Reason: NAUSEA Last Admin: 07/13/17 18:11 Dose: 4 mg Pantoprazole Sodium (Protonix Iv*) 40 mg IV Q24H [facility] Last Admin: 07/14/17 05:27 Dose: 40 mg Phenol/Menthol (Chloroseptic Throat [place]*) 1 spray MT Q2H PRN PRN Reason: SORE THROAT Last Admin: 07/13/17 18:11 Dose: 1 spray Sodium Chloride (Sodium Chloride 0.65% Nasal [place]*) 2 spray BOTH NARES BID [facility] Last Admin: 07/14/17 10:23 Dose: Not Given Vital Signs - 8 hr 07/14/17 07/14/17 07/14/17 11:40 15:31 15:45 Temperature 97.3 F 98.3 F Pulse Rate 66 71 Respiratory 20 20 Rate Blood Pressure 120/49 137/61 (mmHg) O2 Sat by Pulse 99 100 100 Oximetry Oxygen Devices in Use Now: None Appearance: well appearing, no distress Eyes: No Scleral Icterus Ears/Nose/Mouth/Throat: NL Teeth, Lips, Gums Neck: NL Appearance and Movements; NL JVP Respiratory: Symmetrical Chest Expansion and Respiratory Effort Cardiovascular: NL Sounds; No Murmurs; No JVD, RRR Abdominal: - - soft, nontender, incisions clean, dinah in tact Lymphatic: No Cervical Adenopathy Extremities: No Edema Skin: No Rash or Ulcers Neurological: Alert and Oriented x 3 Result Diagrams: 07/14/17 05:30 07/14/17 05:30 Additional Lab and Data: Laboratory Results - last 24 hr 07/06/17 07/06/17 07/06/17 04:28 11:21 19:39 WBC 7.2 RBC 2.58 L Hgb 8.3 L Hct 24 L MCV 94 MCH 32 H MCHC 34 RDW 16 H Plt Count 389 MPV 8 Neut % (Auto) 65.8 Lymph % (Auto) 8.3 L [place] % (Auto) 21.4 H Eos % (Auto) 4.1 Baso % (Auto) 0.4 Absolute Neuts (auto) 4.7 Absolute Lymphs (auto) 0.6 L Absolute Monos (auto) 1.5 H Absolute Eos (auto) 0.3 Absolute Basos (auto) 0 Absolute Nucleated RBC 0 Nucleated RBC % 0.1 Sodium 135 Potassium 3.9 Chloride 104 Carbon Dioxide 23 Anion Gap 8 BUN 22 Creatinine 1.02 Est GFR ( Amer) 91.3 Est GFR (Non-Af Amer) 71.0 BUN/Creatinine Ratio 21.6 H Glucose 126 H POC Glucose (mg/dL) 135 H Calcium 8.1 L Phosphorus 3.1 Magnesium 2.3 Total Bilirubin 0.60 AST 13 ALT 17 Alkaline Phosphatase 36 Total Protein 5.7 L Albumin 2.9 L Globulin 2.8 Albumin/Globulin Ratio 1.0 Prealbumin 6 L Triglycerides 144 Cholesterol 109 Microbiology and Other Data: Microbiology 06/28/17 07:25 Stool Stool Occult Blood ([facility]IS) - Final Assess/Plan/Problems-Billing Assessment: 76 yo m with h/o RA, HTN, recurrent diverticular bleed presents with BRBPR and ACUTE anemia s/p pRBC transfusions. now s/p right colectomy 06/29/17 PM. c/b post op ileus vs bowel obstruction . - Patient Problems (1) GI bleed Current Visit: Yes Status: Acute Code(s): K92.2 - GASTROINTESTINAL HEMORRHAGE, UNSPECIFIED SNOMED Code(s): 35708280 Comment: requiring colectomy on this admission 06/29. (2) Ileus following gastrointestinal surgery Current Visit: Yes Status: Acute Code(s): K91.30 - POSTPROC INTESTINAL OBST , UNSP TO PARTIAL VERSUS COMPLETE SNOMED Code(s): 280803309 Comment: post-op course was complicated by ileus. NGT removed last night; tolerating diet well. (3) Orthostatic dizziness Current Visit: Yes Status: Acute Code(s): R42 - DIZZINESS AND GIDDINESS SNOMED Code(s): 952998579 Comment: recheck prior to discharge (4) Diarrhea Current Visit: Yes Status: Acute Code(s): R19.7 - DIARRHEA, UNSPECIFIED SNOMED Code(s): 02138150 Comment: to be expected following an ileus, but would have low threshold for checking c. diff given long hospitalization and leukocytosis
[2017-07-14 18:35] LABS: Urine Appearance Clear; Urine Blood Negative (Negative); Urine Color Yellow; Urine Ketones Negative (Negative); Urine Protein Negative (Negative); Urine Specific Gravity 1.025 (1.010-1.030); Urine Urobilinogen Negative (Negative)
[2017-07-15] MEDS: Heparin VIAL(*) 5000 UNITS/ML VIAL (FIVE THOUSAND) SUBCUT SCH ×3 (05:30→22:16)
[2017-07-15] MEDS: Pantoprazole IV* 40 MG IV SCH (05:30)
[2017-07-15] MEDS: Saline NASAL SPRAY 0.65%* BTL BOTH NARES SCH ×2 (08:08→22:22)
--- NOTE | 2017-07-15 10:20 | PN ---
Progress Note - Progress Note Date of Service: 07/15/17 SOAP: Subjective: Patient seen and examined at bedside. Doing much better, ambulatory. Multiple loose BMs, denies any abdominal pain, nausea or vomiting. Still feels weak and dizzy upon standing, but continues to improve daily. Objective: Awake and alert, in NAD VSS, afbrile Abdomen soft, NT, ND. Incisions well healed, dinah removed and steristrips applied. I?O's noted Assessment: s/p right colectomy for LGIB, improving Plan: D/C plans per medicine Likely to be discharge in next day or two. F/U with [facility] as outpatient.
--- NOTE | 2017-07-15 17:14 | PN ---
Subjective Date of Service: 07/15/17 Interval History: Tolerating full liquid diet. He got lightheaded when he went to the today. Family History: Unchanged from Admission Social History: Unchanged from Admission Past Medical History: Unchanged from Admission Objective Active Medications: Heparin Sodium (Porcine) (Heparin Vial(*)) 5,000 units SUBCUT Q8HR [facility] Last Admin: 07/15/17 14:25 Dose: 5,000 units Heparin Sodium (Porcine) (Heparin Flush Picc/Ml/Cvc(*)) 1 - 3 ml FLUSH 0600, 1800 [facility] PRN Reason: Protocol Last Admin: 07/15/17 05:30 Dose: 2 ml Ketorolac Tromethamine (Toradol Inj*) 15 mg IV PUSH Q6H PRN PRN Reason: PAIN Lidocaine (Xylocaine 2% Viscous*) 20 ml SWISH SPIT TID PRN PRN Reason: SORE THROAT Last Admin: 07/10/17 22:18 Dose: 15 ml Morphine Sulfate (Morphine Inj (Syringe)*) 2 mg IV Q2H PRN PRN Reason: PAIN - MILD Last Admin: 07/13/17 18:11 Dose: 2 mg Ondansetron HCl (Zofran Inj*) 4 mg IV Q6H PRN PRN Reason: NAUSEA Last Admin: 07/13/17 18:11 Dose: 4 mg Pantoprazole Sodium (Protonix Iv*) 40 mg IV Q24H [facility] Last Admin: 07/15/17 05:30 Dose: 40 mg Phenol/Menthol (Chloroseptic Throat [place]*) 1 spray MT Q2H PRN PRN Reason: SORE THROAT Last Admin: 07/13/17 18:11 Dose: 1 spray Sodium Chloride (Sodium Chloride 0.65% Nasal [place]*) 2 spray BOTH NARES BID [facility] Last Admin: 07/15/17 08:08 Dose: Not Given Vital Signs - 8 hr 07/15/17 11:33 Temperature 97.9 F Pulse Rate 65 Respiratory 24 Rate Blood Pressure 114/54 (mmHg) O2 Sat by Pulse 98 Oximetry Oxygen Devices in Use Now: None Appearance: Alert, partly up in bed. Neutral affect. Looks comfortable. Eyes: No Scleral Icterus Extremities: No Edema, No Clubbing, Cyanosis, - Skin: No Rash or Ulcers, No Nodules or Sclerosis, - Neurological: Alert and Oriented x 3, NL Sensation Result Diagrams: 07/14/17 05:30 07/14/17 05:30 Additional Lab and Data: Laboratory Results - last 24 hr 07/06/17 07/06/17 07/06/17 04:28 11:21 19:39 WBC 7.2 RBC 2.58 L Hgb 8.3 L Hct 24 L MCV 94 MCH 32 H MCHC 34 RDW 16 H Plt Count 389 MPV 8 Neut % (Auto) 65.8 Lymph % (Auto) 8.3 L [place] % (Auto) 21.4 H Eos % (Auto) 4.1 Baso % (Auto) 0.4 Absolute Neuts (auto) 4.7 Absolute Lymphs (auto) 0.6 L Absolute Monos (auto) 1.5 H Absolute Eos (auto) 0.3 Absolute Basos (auto) 0 Absolute Nucleated RBC 0 Nucleated RBC % 0.1 Sodium 135 Potassium 3.9 Chloride 104 Carbon Dioxide 23 Anion Gap 8 BUN 22 Creatinine 1.02 Est GFR ( Amer) 91.3 Est GFR (Non-Af Amer) 71.0 BUN/Creatinine Ratio 21.6 H Glucose 126 H POC Glucose (mg/dL) 135 H Calcium 8.1 L Phosphorus 3.1 Magnesium 2.3 Total Bilirubin 0.60 AST 13 ALT 17 Alkaline Phosphatase 36 Total Protein 5.7 L Albumin 2.9 L Globulin 2.8 Albumin/Globulin Ratio 1.0 Prealbumin 6 L Triglycerides 144 Cholesterol 109 Microbiology and Other Data: Microbiology 06/28/17 07:25 Stool Stool Occult Blood ([facility]) - Final Assess/Plan/Problems-Billing Assessment: 76 yo m with h/o RA, HTN, recurrent diverticular bleed presents with BRBPR and ACUTE anemia s/p pRBC transfusions. now s/p right colectomy 06/29/17 PM. c/b post op ileus vs bowel obstruction . - Patient Problems (1) Anemia Current Visit: Yes Status: Acute Code(s): D64.9 - ANEMIA, UNSPECIFIED SNOMED Code(s): 627605533 Comment: Stable. Repeat Fe/TIBC showed iron deficiency. Elevated transferrin soluble receptor level c/w DEXTER. Possible concurrent B12 deficiency , would re-test B12 level in 1 month. Second dose iron sucrose ordered. (2) Ileus following gastrointestinal surgery Current Visit: Yes Status: Acute Code(s): K91.30 - POSTPROC INTESTINAL OBST , UNSP TO PARTIAL VERSUS COMPLETE SNOMED Code(s): 003482779 Comment: post-op course was complicated by ileus. Tolerating diet well 07/15. (3) Fever Current Visit: Yes Status: Acute Code(s): R50.9 - FEVER, UNSPECIFIED SNOMED Code(s): 744477344 Comment: No fever since 07/07 19:45 hrs. Status and Disposition: inpatient. Continued ileus vs SBO.
[2017-07-15] MEDS ORDERED: Iron Sucrose* 200 MG in NS 0.9% 100 ML* 100 ML IVPB ONE (18:00)
[2017-07-16] MEDS: Heparin VIAL(*) 5000 UNITS/ML VIAL (FIVE THOUSAND) SUBCUT SCH ×3 (06:34→21:28)
[2017-07-16] MEDS: Pantoprazole IV* 40 MG IV SCH (06:39)
[2017-07-16] MEDS: Saline NASAL SPRAY 0.65%* BTL BOTH NARES SCH ×2 (09:18→20:45)
--- NOTE | 2017-07-16 10:36 | PN ---
Progress Note - Progress Note Date of Service: 07/16/17 SOAP: Subjective: Patient seen and examined at bedside. Reports "explosive diarrhea" with 4 episodes of watery stools this AM. Denies melena, foul smelling, abdominal pain , fever or chills. Tolerating full liquids. Objective: Awake and alert, eating breakfast in bed, appears comfortable VSS, afebrile Abdomen soft, NT, ND. Incisions well healed, secured with steristrips. I/O's noted Assessment: s/p laparoscopic right colectomy for LGIB, stable Plan: Check stool for Cx and C-diff, patient has hx C-diff colitis Advance diet as tolerated Ambulate as tolerated Discussed with patient and d/c plans. They both agreeable to STR plans. Discussed with social worker palliative care, will plan for placement sometime early next week.
--- NOTE | 2017-07-16 16:25 | PN ---
Subjective Date of Service: 07/16/17 Interval History: Patient sleeping in bed, looks comfortable. Family History: Unchanged from Admission Social History: Unchanged from Admission Past Medical History: Unchanged from Admission Objective Active Medications: Ferrous Sulfate (Ferrous Sulfate Tab*) 325 mg PO DAILY [facility] Heparin Sodium (Porcine) (Heparin Vial(*)) 5,000 units SUBCUT Q8HR [facility] Last Admin: 07/16/17 14:09 Dose: 5,000 units Heparin Sodium (Porcine) (Heparin Flush Picc/Ml/Cvc(*)) 1 - 3 ml FLUSH 0600, 1800 [facility] PRN Reason: Protocol Last Admin: 07/16/17 06:39 Dose: 2 ml Ketorolac Tromethamine (Toradol Inj*) 15 mg IV PUSH Q6H PRN PRN Reason: PAIN Lidocaine (Xylocaine 2% Viscous*) 20 ml SWISH SPIT TID PRN PRN Reason: SORE THROAT Last Admin: 07/10/17 22:18 Dose: 15 ml Morphine Sulfate (Morphine Inj (Syringe)*) 2 mg IV Q2H PRN PRN Reason: PAIN - MILD Last Admin: 07/13/17 18:11 Dose: 2 mg Ondansetron HCl (Zofran Inj*) 4 mg IV Q6H PRN PRN Reason: NAUSEA Last Admin: 07/13/17 18:11 Dose: 4 mg Pantoprazole Sodium (Protonix Iv*) 40 mg IV Q24H [facility] Last Admin: 07/16/17 06:39 Dose: 40 mg Phenol/Menthol (Chloroseptic Throat [place]*) 1 spray MT Q2H PRN PRN Reason: SORE THROAT Last Admin: 07/13/17 18:11 Dose: 1 spray Sodium Chloride (Sodium Chloride 0.65% Nasal [place]*) 2 spray BOTH NARES BID [facility] Last Admin: 07/16/17 09:18 Dose: Not Given Oxygen Devices in Use Now: None Appearance: Patient sleeping in bed, looks comfortable. Respiratory: Symmetrical Chest Expansion and Respiratory Effort Extremities: No Edema, No Clubbing, Cyanosis, - Skin: No Rash or Ulcers, No Nodules or Sclerosis, - Neurological: - - Patient sleeping in bed, looks comfortable. Result Diagrams: 07/14/17 05:30 07/14/17 05:30 Additional Lab and Data: Laboratory Results - last 24 hr 07/06/17 07/06/17 07/06/17 04:28 11:21 19:39 WBC 7.2 RBC 2.58 L Hgb 8.3 L Hct 24 L MCV 94 MCH 32 H MCHC 34 RDW 16 H Plt Count 389 MPV 8 Neut % (Auto) 65.8 Lymph % (Auto) 8.3 L [place] % (Auto) 21.4 H Eos % (Auto) 4.1 Baso % (Auto) 0.4 Absolute Neuts (auto) 4.7 Absolute Lymphs (auto) 0.6 L Absolute Monos (auto) 1.5 H Absolute Eos (auto) 0.3 Absolute Basos (auto) 0 Absolute Nucleated RBC 0 Nucleated RBC % 0.1 Sodium 135 Potassium 3.9 Chloride 104 Carbon Dioxide 23 Anion Gap 8 BUN 22 Creatinine 1.02 Est GFR ( Amer) 91.3 Est GFR (Non-Af Amer) 71.0 BUN/Creatinine Ratio 21.6 H Glucose 126 H POC Glucose (mg/dL) 135 H Calcium 8.1 L Phosphorus 3.1 Magnesium 2.3 Total Bilirubin 0.60 AST 13 ALT 17 Alkaline Phosphatase 36 Total Protein 5.7 L Albumin 2.9 L Globulin 2.8 Albumin/Globulin Ratio 1.0 Prealbumin 6 L Triglycerides 144 Cholesterol 109 Microbiology and Other Data: Microbiology 06/28/17 07:25 Stool Stool Occult Blood ([facility]) - Final Assess/Plan/Problems-Billing Assessment: 76 yo m with h/o RA, HTN, recurrent diverticular bleed presents with BRBPR and ACUTE anemia s/p pRBC transfusions. now s/p right colectomy 06/29/17 PM. c/b post op ileus vs bowel obstruction . - Patient Problems (1) Anemia Current Visit: Yes Status: Acute Code(s): D64.9 - ANEMIA, UNSPECIFIED SNOMED Code(s): 061885185 Comment: Stable. Repeat Fe/TIBC showed iron deficiency. Elevated transferrin soluble receptor level c/w DEXTER. Possible concurrent B12 deficiency , would re-test B12 level in 1 month. Second dose iron sucrose given 07/15. Start oral ferrous sulfate 325 mg daily 07/17. (2) Ileus following gastrointestinal surgery Current Visit: Yes Status: Acute Code(s): K91.30 - POSTPROC INTESTINAL OBST , UNSP TO PARTIAL VERSUS COMPLETE SNOMED Code(s): 272590847 Comment: post-op course was complicated by ileus. Tolerating unrestricted diet well 07/16. (3) Fever Current Visit: Yes Status: Acute Code(s): R50.9 - FEVER, UNSPECIFIED SNOMED Code(s): 100783926 Comment: No fever since 07/07 19:45 hrs. Status and Disposition: inpatient. Continued ileus vs SBO.
[2017-07-17] MEDS: Pantoprazole IV* 40 MG IV SCH (05:42)
[2017-07-17] MEDS: Heparin VIAL(*) 5000 UNITS/ML VIAL (FIVE THOUSAND) SUBCUT SCH ×3 (05:57→21:54)
[2017-07-17 06:11] LABS: ABS Basophils 0.1 10^3/ul (0-0.2); ABS Eosinophils 0.2 10^3/ul (0-0.6); ABS Lymphocytes 1.2 10^3/ul (1.0-4.8); ABS Monocytes 1.1 10^3/ul (0-0.8); ABS Neutrophils 10.8 10^3/ul (1.5-7.7); ABS Nucleated RBC 0 10^3/ul; Eosinophil % 1.1 % (0-6); Hematocrit 25 % (42-52); Hemoglobin 8.3 g/dl (14.0-18.0); Mean Corpuscular HGB Conc 34 g/dl (31-36); Mean Corpuscular Hemoglobin 31 pg (27-31); Mean Corpuscular Volume 93 fL (80-94); Mean Platelet Volume 9 um3 (7.4-10.4); Nucleated Red Blood Cells % 0; Platelet Count 413 10^3/ul (150-450); Red Blood Count 2.67 10^6/ul (4.0-5.4); Red Cell Distribution Width 18 % (10.5-15); White Blood Count 13.2 10^3/ul (3.5-10.8)
[2017-07-17 06:22] LABS: INR 1.06 (0.77-1.02)
[2017-07-17 06:28] LABS: EGFR Non-African American 67.2 (>60)
[2017-07-17] MEDS: Saline NASAL SPRAY 0.65%* BTL BOTH NARES SCH ×2 (08:53→22:00)
[2017-07-17] MEDS: Ferrous Sulfate TAB* 325 MG PO SCH (09:00)
--- NOTE | 2017-07-17 09:16 | PN ---
Progress Note - Progress Note Date of Service: 07/17/17 SOAP: Subjective: Pt seen and examined. c/o "explosive diarrhea" 5 episodes yesterday. C diff negative. no nausea. tolerating diet, ambulating. Objective: af vss weight is down a nd o x 3 lungs clear abdo: soft/ ND/ incisional tenderness. mild redness at midline wound, no dehiscence good BS no calf tenderness labs noted Assessment: POD 15 r lap assist R anna colectomy for bleeding, now with loose BMs Plan: d/c planning home in next 24-48 hrs
--- NOTE | 2017-07-17 16:13 | PN ---
Subjective Date of Service: 07/17/17 Interval History: Mild incisional pain, not using any analgesic. He is more concerned about his diarrhea. He states he has had 3 BM since this AM (its now 4 PM). Walks in the [place] Family History: Unchanged from Admission Social History: Unchanged from Admission Past Medical History: Unchanged from Admission Objective Active Medications: Ferrous Sulfate (Ferrous Sulfate Tab*) 325 mg PO DAILY [facility] Last Admin: 07/17/17 09:00 Dose: 325 mg Heparin Sodium (Porcine) (Heparin Vial(*)) 5,000 units SUBCUT Q8HR [facility] Last Admin: 07/17/17 13:36 Dose: 5,000 units Heparin Sodium (Porcine) (Heparin Flush Picc/Ml/Cvc(*)) 1 - 3 ml FLUSH 0600, 1800 [facility] PRN Reason: Protocol Last Admin: 07/17/17 05:57 Dose: 2 ml Ketorolac Tromethamine (Toradol Inj*) 15 mg IV PUSH Q6H PRN PRN Reason: PAIN Lidocaine (Xylocaine 2% Viscous*) 20 ml SWISH SPIT TID PRN PRN Reason: SORE THROAT Last Admin: 07/10/17 22:18 Dose: 15 ml Morphine Sulfate (Morphine Inj (Syringe)*) 2 mg IV Q2H PRN PRN Reason: PAIN - MILD Last Admin: 07/13/17 18:11 Dose: 2 mg Omeprazole (Prilosec Cap*) 20 mg PO DAILY@0600 [facility] Ondansetron HCl (Zofran Inj*) 4 mg IV Q6H PRN PRN Reason: NAUSEA Last Admin: 07/13/17 18:11 Dose: 4 mg Phenol/Menthol (Chloroseptic Throat [place]*) 1 spray MT Q2H PRN PRN Reason: SORE THROAT Last Admin: 07/13/17 18:11 Dose: 1 spray Sodium Chloride (Sodium Chloride 0.65% Nasal [place]*) 2 spray BOTH NARES BID [facility] Last Admin: 07/17/17 08:53 Dose: Not Given Oxygen Devices in Use Now: None Appearance: Alert, sl up in bed. In good spirits. Looks comfortable. Folded towel over abd incision area. Eyes: No Scleral Icterus Extremities: No Edema, No Clubbing, Cyanosis, - Skin: No Rash or Ulcers, No Nodules or Sclerosis, - Neurological: Alert and Oriented x 3, NL Sensation Result Diagrams: 07/17/17 05:55 07/17/17 05:55 Additional Lab and Data: Laboratory Results - last 24 hr 07/06/17 07/06/17 07/06/17 04:28 11:21 19:39 WBC 7.2 RBC 2.58 L Hgb 8.3 L Hct 24 L MCV 94 MCH 32 H MCHC 34 RDW 16 H Plt Count 389 MPV 8 Neut % (Auto) 65.8 Lymph % (Auto) 8.3 L [place] % (Auto) 21.4 H Eos % (Auto) 4.1 Baso % (Auto) 0.4 Absolute Neuts (auto) 4.7 Absolute Lymphs (auto) 0.6 L Absolute Monos (auto) 1.5 H Absolute Eos (auto) 0.3 Absolute Basos (auto) 0 Absolute Nucleated RBC 0 Nucleated RBC % 0.1 Sodium 135 Potassium 3.9 Chloride 104 Carbon Dioxide 23 Anion Gap 8 BUN 22 Creatinine 1.02 Est GFR ( Amer) 91.3 Est GFR (Non-Af Amer) 71.0 BUN/Creatinine Ratio 21.6 H Glucose 126 H POC Glucose (mg/dL) 135 H Calcium 8.1 L Phosphorus 3.1 Magnesium 2.3 Total Bilirubin 0.60 AST 13 ALT 17 Alkaline Phosphatase 36 Total Protein 5.7 L Albumin 2.9 L Globulin 2.8 Albumin/Globulin Ratio 1.0 Prealbumin 6 L Triglycerides 144 Cholesterol 109 Microbiology and Other Data: Microbiology 06/28/17 07:25 Stool Stool Occult Blood ([facility]) - Final Assess/Plan/Problems-Billing Assessment: 76 yo m with h/o RA, HTN, recurrent diverticular bleed presents with BRBPR and ACUTE anemia s/p pRBC transfusions. now s/p right colectomy 06/29/17 PM. c/b post op ileus vs bowel obstruction . - Patient Problems (1) Anemia Current Visit: Yes Status: Acute Code(s): D64.9 - ANEMIA, UNSPECIFIED SNOMED Code(s): 962480788 Comment: Stable. Repeat Fe/TIBC showed iron deficiency. Elevated transferrin soluble receptor level c/w DEXTER. Nl methylmalonic acid level, doubt B12 deficiency, could re-test B12 level in 1 month. Second dose iron sucrose given 07/15. Started oral ferrous sulfate 325 mg daily 07/17. (2) Ileus following gastrointestinal surgery Current Visit: Yes Status: Acute Code(s): K91.30 - POSTPROC INTESTINAL OBST , UNSP TO PARTIAL VERSUS COMPLETE SNOMED Code(s): 581177327 Comment: post-op course was complicated by ileus. Tolerating unrestricted diet well 07/16. (3) Fever Current Visit: Yes Status: Acute Code(s): R50.9 - FEVER, UNSPECIFIED SNOMED Code(s): 023495610 Comment: No fever since 07/07 19:45 hrs. Status and Disposition: inpatient. Continued ileus vs SBO.
[2017-07-18] MEDS: Acetaminophen TAB* 325 MG PO PRN ×4 (04:10→21:53)
[2017-07-18] MEDS: Omeprazole CAP* 20 MG PO SCH (06:20)
[2017-07-18] MEDS: Heparin VIAL(*) 5000 UNITS/ML VIAL (FIVE THOUSAND) SUBCUT SCH ×3 (06:22→21:53)
[2017-07-18] MEDS: Ferrous Sulfate TAB* 325 MG PO SCH (08:50)
[2017-07-18] MEDS: Saline NASAL SPRAY 0.65%* BTL BOTH NARES SCH ×2 (08:50→21:53)
--- NOTE | 2017-07-18 11:02 | PN ---
Progress Note - Progress Note Date of Service: 07/18/17 SOAP: Subjective: Pt seen and examined. continued loose BM 5 episodes since l;ast night. no nausea. tolerating diet, ambulating, but get dizzy Midline wound spontaneously opened last night Objective: af vss a nd o x 3 lungs clear abdo: soft/ ND/ incisional tenderness. skin dehiscence with some purulent discharge. cx not taken. wound bluntly opened up, fully drained and packed. good BS no calf tenderness Assessment: POD 16 r lap assist R anna colectomy for bleeding, loose BMs, wound infection Plan: bolus LR wound care may need abx- pt and family would like Dr Ortega involved in abx- pt not showing any systemic signs and so we will hold up on abx until tomorrrow d/c planning home in next 24-48 hrs- will need daily packing changes
--- NOTE | 2017-07-18 18:47 | PN ---
Subjective Date of Service: 07/18/17 Interval History: Patient seen and examined. Still with diarrhea, some abdominal bloating and pain around dehiscence. States tylenol helps. Denies SOB, no chest pain, no fever or chills. Tolerating PO. Family History: Unchanged from Admission Social History: Unchanged from Admission Past Medical History: Unchanged from Admission Objective Active Medications: Acetaminophen (Tylenol Tab*) 650 mg PO Q6H PRN PRN Reason: PAIN Last Admin: 07/18/17 17:42 Dose: 650 mg Ferrous Sulfate (Ferrous Sulfate Tab*) 325 mg PO DAILY [facility] Last Admin: 07/18/17 08:50 Dose: 325 mg Heparin Sodium (Porcine) (Heparin Vial(*)) 5,000 units SUBCUT Q8HR [facility] Last Admin: 07/18/17 15:14 Dose: 5,000 units Heparin Sodium (Porcine) (Heparin Flush Picc/Ml/Cvc(*)) 1 - 3 ml FLUSH 0600, 1800 [facility] PRN Reason: Protocol Last Admin: 07/18/17 17:47 Dose: 1 ml Lactated Ringer's (Lactated Ringers 1000 Ml Bag*) 1,000 mls @ 0 mls/hr IV WIDE OPEN [facility] PRN Reason: Wide Open Stop: 07/18/17 23:59 Last Admin: 07/18/17 11:16 Dose: 500 mls/hr Lidocaine (Xylocaine 2% Viscous*) 20 ml SWISH SPIT TID PRN PRN Reason: SORE THROAT Last Admin: 07/10/17 22:18 Dose: 15 ml Morphine Sulfate (Morphine Inj (Syringe)*) 2 mg IV Q2H PRN PRN Reason: PAIN - MILD Last Admin: 07/13/17 18:11 Dose: 2 mg Omeprazole (Prilosec Cap*) 20 mg PO DAILY@0600 [facility] Last Admin: 07/18/17 06:20 Dose: 20 mg Ondansetron HCl (Zofran Inj*) 4 mg IV Q6H PRN PRN Reason: NAUSEA Last Admin: 07/13/17 18:11 Dose: 4 mg Phenol/Menthol (Chloroseptic Throat [place]*) 1 spray MT Q2H PRN PRN Reason: SORE THROAT Last Admin: 07/13/17 18:11 Dose: 1 spray Sodium Chloride (Sodium Chloride 0.65% Nasal [place]*) 2 spray BOTH NARES BID [facility] Last Admin: 07/18/17 08:50 Dose: 2 spray Vital Signs - 8 hr 07/18/17 07/18/17 07/18/17 11:21 16:00 16:06 Temperature 98.6 F 97.5 F Pulse Rate 65 65 Respiratory 16 16 Rate Blood Pressure 116/57 112/56 (mmHg) O2 Sat by Pulse 97 99 96 Oximetry Oxygen Devices in Use Now: None Appearance: alert, NAD Eyes: No Scleral Icterus, PERRLA Ears/Nose/Mouth/Throat: NL Teeth, Lips, Gums, Mucous Membranes Moist Neck: Trachea Midline Respiratory: Symmetrical Chest Expansion and Respiratory Effort, Clear to Auscultation Cardiovascular: NL Sounds; No Murmurs; No JVD, RRR, No Edema Abdominal: - - distended, bowel sounds hypoactive, wound packed and dressed Extremities: No Edema Neurological: Alert and Oriented x 3, NL Sensation, NL Muscle Strength and Tone Nutrition: Taking PO's Result Diagrams: 07/17/17 05:55 07/17/17 05:55 Additional Lab and Data: Diagnostic Imaging: Patient Name: JULIO RAUSCH Medical Record#: [id number] Ordering Physician: Preet Otero MD Acct.#: [id number] : 1940 Age: 76 Sex: M Location: SURGICAL STAY UNIT Exam Date: 07/12/17 134 ADM Status: ADM IN Order Information: CT ABD/PEL W Accession Number: [id number] CPT: 16162 CLINICAL HISTORY: Leukocytosis, status post right colectomy, ileus versus small bowel obstruction COMPARISON: September 03, 2014 TECHNIQUE: Multiple contiguous axial CT scans were obtained of the abdomen and pelvis after the administration of intravenous contrast. Coronal and sagittal multiplanar reformations are submitted for review. Oral contrast was administered. Delayed images were obtained through the abdomen and pelvis. FINDINGS: The liver is incompletely included within the [id number] the current examination. Evaluation is limited by high density oral contrast within the stomach. LUNG BASES: The lung bases are clear. LIVER: The dome of the liver is incompletely included within the [id number] the current examination. The liver is diffusely low in attenuation compared to the spleen. There are no focal hepatic parenchymal masses. BILE DUCTS: There is no intrahepatic or extrahepatic biliary dilatation. GALLBLADDER: The gallbladder is normal, without pericholecystic inflammatory change. PANCREAS: The pancreas is normal, without mass or ductal dilatation. SPLEEN: Normal in size and appearance. UPPER GI TRACT: Evaluation of the gastrointestinal tract is limited by incomplete gastric distention. Evaluation is also limited by streak artifact from high-density oral contrast within the stomach. A gastric tube is noted in a prepyloric position. SMALL BOWEL AND MESENTERY: There is diffuse distention and mild dilatation of the small bowel without clear transition point COLON: The patient appears to be status post right hemicolectomy. There is diverticulosis of the descending and sigmoid colon. ADRENALS: Normal bilaterally. KIDNEYS: The kidneys are normal in shape, size, contour, and axis. There is no hydronephrosis or nephrolithiasis. BLADDER: The bladder is smooth in contour. PELVIC ORGANS: The prostate gland is normal. The seminal vesicles are symmetric. AORTA: There is calcific atherosclerotic disease of the abdominal aorta and its branches, without aneurysmal dilatation IVC: Unremarkable LYMPH NODES: There is no lymphadenopathy by size criteria. ABDOMINAL WALL: There is no evidence for abdominal wall hernia. BONES AND SOFT TISSUES: Degenerative changes are noted. OTHER: None IMPRESSION: 1. THERE IS DIFFUSE DISTENTION AND MILD DILATATION OF THE SMALL BOWEL WITHOUT TRANSITION POINT. THE DIFFERENTIAL INCLUDES ILEUS VERSUS EARLY OBSTRUCTION. RECOMMEND ATTENTION ON FOLLOW-UP IMAGING. 2. DIVERTICULOSIS 3. FATTY LIVER. 4. ATHEROSCLEROSIS. 5. POST SURGICAL CHANGE 1 of 2 Assess/Plan/Problems-Billing Assessment: 76 yo m with h/o RA, HTN, recurrent diverticular bleed presented to ER with BRBPR and ACUTE anemia s/p multiple PRBC transfusions. POD 19 right colectomy with post op ileus vs. obstruction now with wound dehiscence. - Patient Problems (1) Ileus following gastrointestinal surgery Code(s): K91.30 - POSTPROC INTESTINAL OBST, UNSP TO PARTIAL VERSUS COMPLETE SNOMED Code(s): 558301605 Comment: - Persistent ileus, tolerating PO, no vomiting - Continue plan per surgery, supportive care - Wound care with packing per surgery - Increase tylenol to q4h PRN pain (2) GI bleed Code(s): K92.2 - GASTROINTESTINAL HEMORRHAGE, UNSPECIFIED SNOMED Code(s): 14385954 Comment: - Resolved - Post colectomy 1/23/18 (3) Anemia Code(s): D64.9 - ANEMIA, UNSPECIFIED SNOMED Code(s): 161884342 Comment: - 2/2 GI bleeding - Second dose iron sucrose given 07/15. - Continue ferrous sulfate 325 mg daily 07/17. - Stable. (4) Diarrhea Code(s): R19.7 - DIARRHEA, UNSPECIFIED SNOMED Code(s): 15245574 Comment: - 2/2 post-op ileus - Cdiff negative, cultures pending - POC per surgery, continue supportive care Status and Disposition: Remain inpatient until clear by surgery for ileus.
[2017-07-19] MEDS: Acetaminophen TAB* 325 MG PO PRN ×3 (06:28→19:33)
[2017-07-19] MEDS: Omeprazole CAP* 20 MG PO SCH (06:28)
[2017-07-19] MEDS: Heparin VIAL(*) 5000 UNITS/ML VIAL (FIVE THOUSAND) SUBCUT SCH ×3 (06:29→21:22)
[2017-07-19 06:54] LABS: ABS Basophils 0.1 10^3/ul (0-0.2); ABS Eosinophils 0.2 10^3/ul (0-0.6); ABS Lymphocytes 1.8 10^3/ul (1.0-4.8); ABS Monocytes 0.9 10^3/ul (0-0.8); ABS Neutrophils 9.6 10^3/ul (1.5-7.7); ABS Nucleated RBC 0 10^3/ul; Eosinophil % 1.8 % (0-6); Hematocrit 26 % (42-52); Hemoglobin 8.6 g/dl (14.0-18.0); Lymphocyte % 14.2 % (25-47); Mean Corpuscular HGB Conc 33 g/dl (31-36); Mean Corpuscular Hemoglobin 31 pg (27-31); Mean Corpuscular Volume 92 fL (80-94); Mean Platelet Volume 9 um3 (7.4-10.4); Nucleated Red Blood Cells % 0; Platelet Count 438 10^3/ul (150-450); Red Blood Count 2.79 10^6/ul (4.0-5.4); Red Cell Distribution Width 18 % (10.5-15); White Blood Count 12.7 10^3/ul (3.5-10.8)
[2017-07-19] MEDS: Saline NASAL SPRAY 0.65%* BTL BOTH NARES SCH ×2 (08:56→19:34)
[2017-07-19] MEDS: Ferrous Sulfate TAB* 325 MG PO SCH (08:56)
--- NOTE | 2017-07-19 09:44 | PN ---
Progress Note - Progress Note Date of Service: 07/19/17 SOAP: Subjective: Appetite is good. Loose BM and lots of flatus. Almost passed out after BM when he got up to wash his hands. Has some pain at open wound. Objective: Vital Signs Temp 97.9 F 07/19/17 07:39 Pulse 62 07/19/17 07:39 Resp 17 07/19/17 07:39 BP 99/51 07/19/17 07:39 Pulse Ox 96 07/19/17 07:39 NAD; sitting up eating breakfast. Abd: soft; wound open with surrounding induration and mild erythema, tender; remaining incisions are c/d/i Intake & Output 07/18/17 07/19/17 07/19/17 18:59 06:59 18:59 Intake Total 320 360 Output Total 575 950 Balance -255 -590 Weight 178 lb 1.6 oz Intake: Oral 320 360 Output: Urine 575 600 Liquid Stool 350 Other: Estimated Void Medium Date of Last Bowel 07/19/17 Movement # Bowel Movements 1 Estimated Stool Amount Medium # Voids 1 Laboratory Results - last 24 hr 07/19/17 06:26 WBC 12.7 H RBC 2.79 L Hgb 8.6 L Hct 26 L MCV 92 MCH 31 MCHC 33 RDW 18 H Plt Count 438 MPV 9 Neut % (Auto) 75.9 Lymph % (Auto) 14.2 L [place] % (Auto) 7.4 Eos % (Auto) 1.8 Baso % (Auto) 0.7 Absolute Neuts (auto) 9.6 H Absolute Lymphs (auto) 1.8 Absolute Monos (auto) 0.9 H Absolute Eos (auto) 0.2 Absolute Basos (auto) 0.1 Absolute Nucleated RBC 0 Nucleated RBC % 0 Assessment: POD#20 s/p lap R colectomy, now wound infection. Diarrhea post colectomy is not unexpected. Symptomatic anemia persists. Plan: Have consulted Dr. Wilhelm for abx for wound infection, given an h/o c. diff. Continue local care. Will add Metamucil for the diarrhea. Have d/w Hospitalist regarding sx anemia and may be transfused. Will have PT assess for Rehab vs. d/c home.
[2017-07-19] MEDS: Psyllium PAK PO SCH (11:24)
[2017-07-19] MEDS: Sulfamethox/Trimethoprim DS 800/160* TAB PO SCH ×2 (14:14→19:33)
--- NOTE | 2017-07-19 18:43 | PN ---
Subjective Date of Service: 07/19/17 Interval History: Patient seen and examined. Ordered transfusion earlier today, patient feeling better after 1 unit PRBCs. Ambulated with PT. Discussed stool culture. States abdominal wound is painful at times but he is tolerating with tylenol. Still has diarrhea, no n/v. No fever or chills. Family History: Unchanged from Admission Social History: Unchanged from Admission Past Medical History: Unchanged from Admission Objective Active Medications: Acetaminophen (Tylenol Tab*) 650 mg PO Q4H PRN PRN Reason: PAIN Last Admin: 07/19/17 14:44 Dose: 650 mg Ferrous Sulfate (Ferrous Sulfate Tab*) 325 mg PO DAILY [facility] Last Admin: 07/19/17 08:56 Dose: 325 mg Heparin Sodium (Porcine) (Heparin Vial(*)) 5,000 units SUBCUT Q8HR [facility] Last Admin: 07/19/17 14:14 Dose: 5,000 units Heparin Sodium (Porcine) (Heparin Flush Picc/Ml/Cvc(*)) 1 - 3 ml FLUSH 0600, 1800 [facility] PRN Reason: Protocol Last Admin: 07/19/17 16:15 Dose: Not Given Lidocaine (Xylocaine 2% Viscous*) 20 ml SWISH SPIT TID PRN PRN Reason: SORE THROAT Last Admin: 07/10/17 22:18 Dose: 15 ml Omeprazole (Prilosec Cap*) 20 mg PO DAILY@0600 [facility] Last Admin: 07/19/17 06:28 Dose: 20 mg Ondansetron HCl (Zofran Inj*) 4 mg IV Q6H PRN PRN Reason: NAUSEA Last Admin: 07/13/17 18:11 Dose: 4 mg Phenol/Menthol (Chloroseptic Throat [place]*) 1 spray MT Q2H PRN PRN Reason: SORE THROAT Last Admin: 07/13/17 18:11 Dose: 1 spray Psyllium Hydrophilic Mucilloid (Metamucil Gustavo*) 1 pkt PO DAILY [facility] Last Admin: 07/19/17 11:24 Dose: 1 pkt Sodium Chloride (Sodium Chloride 0.65% Nasal [place]*) 2 spray BOTH NARES BID [facility] Last Admin: 07/19/17 08:56 Dose: Not Given Trimethoprim/Sulfamethoxazole (Bactrim Ds 800/160 Tab*) 1 tab PO BID [facility] Last Admin: 07/19/17 14:14 Dose: 1 tab Vital Signs - 8 hr 07/19/17 07/19/17 07/19/17 11:58 12:26 14:20 Temperature 97.7 F 97.6 F 98.7 F Pulse Rate 61 60 69 Respiratory 17 20 20 Rate Blood Pressure 107/57 112/56 106/56 (mmHg) O2 Sat by Pulse 98 98 98 Oximetry Oxygen Devices in Use Now: None Appearance: Alert, NAD Ears/Nose/Mouth/Throat: NL Teeth, Lips, Gums, Mucous Membranes Moist Neck: Trachea Midline Respiratory: Symmetrical Chest Expansion and Respiratory Effort, Clear to Auscultation Cardiovascular: NL Sounds; No Murmurs; No JVD, RRR Abdominal: - - wound packed and dressed, some exudated noted and erythema at wound edges Extremities: No Edema, No Clubbing, Cyanosis Neurological: Alert and Oriented x 3, NL Gait Nutrition: Taking PO's Result Diagrams: 07/19/17 06:26 07/17/17 05:55 Additional Lab and Data: Microbiology and Other Data: Microbiology 06/28/17 07:25 Stool Stool Occult Blood ([facility]) - Final Diagnostic Imaging: Patient Name: JULIO RAUSCH Medical Record#: [id number] Ordering Physician: Preet Otero MD Acct.#: [id number] : 1940 Age: 76 Sex: M Location: SURGICAL STAY UNIT Exam Date: 07/12/171348 ADM Status: ADM IN Order Information: CT ABD/PEL W Accession Number: [id number] CPT: 12471 CLINICAL HISTORY: Leukocytosis, status post right colectomy, ileus versus small bowel obstruction COMPARISON: September 03, 2014 TECHNIQUE: Multiple contiguous axial CT scans were obtained of the abdomen and pelvis after the administration of intravenous contrast. Coronal and sagittal multiplanar reformations are submitted for review. Oral contrast was administered. Delayed images were obtained through the abdomen and pelvis. FINDINGS: The liver is incompletely included within the [id number] the current examination. Evaluation is limited by high density oral contrast within the stomach. LUNG BASES: The lung bases are clear. LIVER: The dome of the liver is incompletely included within the [id number] the current examination. The liver is diffusely low in attenuation compared to the spleen. There are no focal hepatic parenchymal masses. BILE DUCTS: There is no intrahepatic or extrahepatic biliary dilatation. GALLBLADDER: The gallbladder is normal, without pericholecystic inflammatory change. PANCREAS: The pancreas is normal, without mass or ductal dilatation. SPLEEN: Normal in size and appearance. UPPER GI TRACT: Evaluation of the gastrointestinal tract is limited by incomplete gastric distention. Evaluation is also limited by streak artifact from high-density oral contrast within the stomach. A gastric tube is noted in a prepyloric position. SMALL BOWEL AND MESENTERY: There is diffuse distention and mild dilatation of the small bowel without clear transition point COLON: The patient appears to be status post right hemicolectomy. There is diverticulosis of the descending and sigmoid colon. ADRENALS: Normal bilaterally. KIDNEYS: The kidneys are normal in shape, size, contour, and axis. There is no hydronephrosis or nephrolithiasis. BLADDER: The bladder is smooth in contour. PELVIC ORGANS: The prostate gland is normal. The seminal vesicles are symmetric. AORTA: There is calcific atherosclerotic disease of the abdominal aorta and its branches, without aneurysmal dilatation IVC: Unremarkable LYMPH NODES: There is no lymphadenopathy by size criteria. ABDOMINAL WALL: There is no evidence for abdominal wall hernia. BONES AND SOFT TISSUES: Degenerative changes are noted. OTHER: None IMPRESSION: 1. THERE IS DIFFUSE DISTENTION AND MILD DILATATION OF THE SMALL BOWEL WITHOUT TRANSITION POINT. THE DIFFERENTIAL INCLUDES ILEUS VERSUS EARLY OBSTRUCTION. RECOMMEND ATTENTION ON FOLLOW-UP IMAGING. 2. DIVERTICULOSIS 3. FATTY LIVER. 4. ATHEROSCLEROSIS. 5. POST SURGICAL CHANGE 1 of 2 Assess/Plan/Problems-Billing Assessment: 76 yo m with h/o RA, HTN, recurrent diverticular bleed presented to ER with BRBPR and ACUTE anemia s/p multiple PRBC transfusions. POD 19 right colectomy with post op ileus vs. obstruction now with wound dehiscence. - Patient Problems (1) Ileus following gastrointestinal surgery Code(s): K91.30 - POSTPROC INTESTINAL OBST, UNSP TO PARTIAL VERSUS COMPLETE SNOMED Code(s): 349563786 Comment: - Persistent ileus, resolving as per surgery - Tolerating PO, no vomiting - Wound care with packing per surgery - Increase tylenol to q4h PRN pain - Culture wound exudate in light of aeromonas in stool (2) GI bleed Code(s): K92.2 - GASTROINTESTINAL HEMORRHAGE, UNSPECIFIED SNOMED Code(s): 23399639 Comment: - Resolved - Post colectomy 06/29/17 (3) Anemia Code(s): D64.9 - ANEMIA, UNSPECIFIED SNOMED Code(s): 680631826 Comment: - 2/2 GI bleeding - Second dose iron sucrose given 07/15. - Continue ferrous sulfate 325 mg daily 07/17. - s/p 1 unit PRBCs today, tolerated well and feeling better - Check H&H in am (4) Diarrhea Code(s): R19.7 - DIARRHEA, UNSPECIFIED SNOMED Code(s): 01112808 Comment: - Cdiff negative - Culture with aeromonas hydrophilia caviae, - ID following, placed on bactrim pending susceptibility - Culture wound Status and Disposition: Remain inpatient. If H&H stable in AM, may consider DC tomorrow. Counseling and/or Coordination of Care Minutes: coordinated with staff
--- NOTE | 2017-07-19 23:04 | CONS ---
CONSULTATION REPORT: DATE OF CONSULTATION: 07/19/17 REQUESTING PROVIDER: Dr. Otero. CONSULTING SERVICE: Infectious Disease. REASON FOR CONSULTATION: Need for antibiotics in the setting of past C. diff infection. IMPRESSION: 1. Superficial abdominal incision infection. No culture data available. Could be skin lorne or bowel related to recent intraabdominal procedure including E. coli. 2. Status post right colectomy, laparoscopic due to right colon diverticular bleed. 3. Past history of prolonged course of C. diff infection. RECOMMENDATIONS: Bactrim one double-strength tablet twice daily by mouth and we will follow his exam. HISTORY OF PRESENT ILLNESS: This is a 76-year-old man admitted with severe GI bleed with a right hemicolectomy on 06/29/17. It was complicated by ileus and then over the weekend noted to have some redness around the incision, which was opened at the bedside. A scant amount of purulent fluid was drained, not felt to be a deeper connection and otherwise continuing to improve. His white count has spiked up to 17 and then down to 12 today. He has had no fever. He is having loose stools. He has had C. diff test sent that was negative. 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 PAST MEDICAL HISTORY: 1. C. difficile colitis. 2. Diverticulosis. 3. Status post right hemicolectomy. 4. Rheumatoid arthritis. 5. Hypertension. 6. Hyperlipidemia. 7. Benign prostatic hypertrophy. 8. Ede's disease. 9. Cardiac catheterization. ALLERGIES: No known drug allergies. MEDICATIONS: 1. Tylenol. 2. Ferrous sulfate. 3. Heparin subcutaneous injection. 4. Omeprazole. 5. Psyllium pack. SOCIAL HISTORY: He is a retired state police and fire dispatcher and lives with his . No travel. FAMILY HISTORY: No recurrent infections. REVIEW OF SYSTEMS: All negative except as noted above in his 14-point review of systems. PHYSICAL EXAMINATION: Vital Signs: Temperature is 37.1, heart rate 58, respiratory rate 20, blood pressure 109/56, oxygen saturation 98% on room air. In general, he is awake, not in distress. He is pale. HEENT: There is no conjunctival hemorrhage. Oropharynx is without lesions. Neck: Neck is supple without nuchal rigidity. Lymph Nodes: There is no cervical, supraclavicular, inguinal, axillary, or epitrochlear lymphadenopathy. Heart is regular rate and rhythm without murmurs, rubs, or gallops. Lungs: Clear to auscultation bilaterally. Abdomen: Soft, nontender. There are bowel sounds present. There is a lower midline incision, which is open. There is a thin rim of erythema. There is no drainage, crepitus or fluctuance. Musculoskeletal: There is no joint synovitis. LABORATORY DATA: White blood cell count 12.7, hemoglobin 8.6, platelets 438. Creatinine is 1. Please see impressions and recommendations as outlined above. Thank you for asking me to see Mr. Barajas in consultation. [id number]/[facility] #: [id number] MTDVikram
[2017-07-20] MEDS: Acetaminophen TAB* 325 MG PO PRN ×2 (02:48→08:17)
[2017-07-20] MEDS: Omeprazole CAP* 20 MG PO SCH (05:34)
[2017-07-20] MEDS: Heparin VIAL(*) 5000 UNITS/ML VIAL (FIVE THOUSAND) SUBCUT SCH (05:36)
[2017-07-20 05:57] LABS: Hematocrit 27 % (42-52); Hemoglobin 8.9 g/dl (14.0-18.0)
[2017-07-20] MEDS: Sulfamethox/Trimethoprim DS 800/160* TAB PO SCH (08:17)
[2017-07-20] MEDS: Ferrous Sulfate TAB* 325 MG PO SCH (08:17)
[2017-07-20] MEDS: Saline NASAL SPRAY 0.65%* BTL BOTH NARES SCH (08:24)
--- NOTE | 2017-07-20 09:30 | PN ---
Subjective Date of Service: 07/20/17 Interval History: Patient seen and examined. Continued improvement since transfusion. Abdominal wound with minimal pain, ambulatory. No dizziness, no SOB, no fevers or chills.Tolerating PO, no diarrhea since 3pm yesterday. Family History: Unchanged from Admission Social History: Unchanged from Admission Past Medical History: Unchanged from Admission Objective Active Medications: Acetaminophen (Tylenol Tab*) 650 mg PO Q4H PRN PRN Reason: PAIN Last Admin: 07/20/17 08:17 Dose: 650 mg Ferrous Sulfate (Ferrous Sulfate Tab*) 325 mg PO DAILY [facility] Last Admin: 07/20/17 08:17 Dose: 325 mg Heparin Sodium (Porcine) (Heparin Vial(*)) 5,000 units SUBCUT Q8HR [facility] Last Admin: 07/20/17 05:36 Dose: 5,000 units Heparin Sodium (Porcine) (Heparin Flush Picc/Ml/Cvc(*)) 1 - 3 ml FLUSH 0600, 1800 [facility] PRN Reason: Protocol Last Admin: 07/20/17 05:44 Dose: 2 ml Lidocaine (Xylocaine 2% Viscous*) 20 ml SWISH SPIT TID PRN PRN Reason: SORE THROAT Last Admin: 07/10/17 22:18 Dose: 15 ml Omeprazole (Prilosec Cap*) 20 mg PO DAILY@0600 [facility] Last Admin: 07/20/17 05:34 Dose: 20 mg Ondansetron HCl (Zofran Inj*) 4 mg IV Q6H PRN PRN Reason: NAUSEA Last Admin: 07/13/17 18:11 Dose: 4 mg Phenol/Menthol (Chloroseptic Throat [place]*) 1 spray MT Q2H PRN PRN Reason: SORE THROAT Last Admin: 07/13/17 18:11 Dose: 1 spray Psyllium Hydrophilic Mucilloid (Metamucil Gustavo*) 1 pkt PO DAILY [facility] Last Admin: 07/19/17 11:24 Dose: 1 pkt Sodium Chloride (Sodium Chloride 0.65% Nasal [place]*) 2 spray BOTH NARES BID [facility] Last Admin: 07/20/17 08:24 Dose: Not Given Trimethoprim/Sulfamethoxazole (Bactrim Ds 800/160 Tab*) 1 tab PO BID [facility] Last Admin: 07/20/17 08:17 Dose: 1 tab Vital Signs - 8 hr 07/20/17 07/20/17 02:52 07:26 Temperature 97.7 F 98.2 F Pulse Rate 59 62 Respiratory 16 18 Rate Blood Pressure 107/59 112/53 (mmHg) O2 Sat by Pulse 98 96 Oximetry Oxygen Devices in Use Now: None Appearance: Alert, NAD Ears/Nose/Mouth/Throat: NL Teeth, Lips, Gums, Mucous Membranes Moist Neck: Trachea Midline Respiratory: Symmetrical Chest Expansion and Respiratory Effort, Clear to Auscultation Cardiovascular: NL Sounds; No Murmurs; No JVD, RRR Abdominal: NL Sounds; No Tenderness; No Distention - dressing CDI Skin: No Rash or Ulcers Neurological: Alert and Oriented x 3, NL Gait Nutrition: Taking PO's Result Diagrams: 07/20/17 05:40 07/17/17 05:55 Additional Lab and Data: Microbiology and Other Data: Microbiology 06/28/17 07:25 Stool Stool Occult Blood ([facility]) - Final Diagnostic Imaging: Patient Name: JULIO RAUSCH Medical Record#: [id number] Ordering Physician: Preet Otero MD Acct.#: [id number] : 1940 Age: 76 Sex: M Location: SURGICAL STAY UNIT Exam Date: 07/12/17 1349 ADM Status: ADM IN Order Information: CT ABD/PEL W Accession Number: [id number] CPT: 92703 CLINICAL HISTORY: Leukocytosis, status post right colectomy, ileus versus small bowel obstruction COMPARISON: September 03, 2014 TECHNIQUE: Multiple contiguous axial CT scans were obtained of the abdomen and pelvis after the administration of intravenous contrast. Coronal and sagittal multiplanar reformations are submitted for review. Oral contrast was administered. Delayed images were obtained through the abdomen and pelvis. FINDINGS: The liver is incompletely included within the [id number] the current examination. Evaluation is limited by high density oral contrast within the stomach. LUNG BASES: The lung bases are clear. LIVER: The dome of the liver is incompletely included within the [id number]-[id number] the current examination. The liver is diffusely low in attenuation compared to the spleen. There are no focal hepatic parenchymal masses. BILE DUCTS: There is no intrahepatic or extrahepatic biliary dilatation. GALLBLADDER: The gallbladder is normal, without pericholecystic inflammatory change. PANCREAS: The pancreas is normal, without mass or ductal dilatation. SPLEEN: Normal in size and appearance. UPPER GI TRACT: Evaluation of the gastrointestinal tract is limited by incomplete gastric distention. Evaluation is also limited by streak artifact from high-density oral contrast within the stomach. A gastric tube is noted in a prepyloric position. SMALL BOWEL AND MESENTERY: There is diffuse distention and mild dilatation of the small bowel without clear transition point COLON: The patient appears to be status post right hemicolectomy. There is diverticulosis of the descending and sigmoid colon. ADRENALS: Normal bilaterally. KIDNEYS: The kidneys are normal in shape, size, contour, and axis. There is no hydronephrosis or nephrolithiasis. BLADDER: The bladder is smooth in contour. PELVIC ORGANS: The prostate gland is normal. The seminal vesicles are symmetric. AORTA: There is calcific atherosclerotic disease of the abdominal aorta and its branches, without aneurysmal dilatation IVC: Unremarkable LYMPH NODES: There is no lymphadenopathy by size criteria. ABDOMINAL WALL: There is no evidence for abdominal wall hernia. BONES AND SOFT TISSUES: Degenerative changes are noted. OTHER: None IMPRESSION: 1. THERE IS DIFFUSE DISTENTION AND MILD DILATATION OF THE SMALL BOWEL WITHOUT TRANSITION POINT. THE DIFFERENTIAL INCLUDES ILEUS VERSUS EARLY OBSTRUCTION. RECOMMEND ATTENTION ON FOLLOW-UP IMAGING. 2. DIVERTICULOSIS 3. FATTY LIVER. 4. ATHEROSCLEROSIS. 5. POST SURGICAL CHANGE 1 of 2 Assess/Plan/Problems-Billing Assessment: 76 yo m with h/o RA, HTN, recurrent diverticular bleed presented to ER with BRBPR and ACUTE anemia s/p multiple PRBC transfusions. POD21 right colectomy with post op ileus vs. obstruction now with wound dehiscence. - Patient Problems (1) Ileus following gastrointestinal surgery Code(s): K91.30 - POSTPROC INTESTINAL OBST, UNSP TO PARTIAL VERSUS COMPLETE SNOMED Code(s): 000021339 Comment: - Resolved - Tolerating PO, no vomiting - Wound care with packing per surgery - Tylenol to q4h PRN pain - Gram stain wound negative, culture pending (2) GI bleed Code(s): K92.2 - GASTROINTESTINAL HEMORRHAGE, UNSPECIFIED SNOMED Code(s): 14271794 Comment: - Resolved - Post colectomy 06/29/17 (3) Anemia Code(s): D64.9 - ANEMIA, UNSPECIFIED SNOMED Code(s): 246573373 Comment: - H&H 8.9/17 after 1 unit PRBCs on 2/12 - Continue ferrous sulfate 325 mg daily - Stable/asymptomatic (4) Diarrhea Code(s): R19.7 - DIARRHEA, UNSPECIFIED SNOMED Code(s): 86400337 Comment: - Resolving - Stool culture with aeromonas hydrophila caviae - ID following, placed on bactrim - Wound culture pending Status and Disposition: Medically optimized for discharge to home with VNS for assistance with wound care/packing if clear by surgery today. Counseling and/or Coordination of Care Minutes: Coordinated with YAMILA Brennan/gen surg
[2017-07-20] MEDS: Psyllium PAK PO SCH (10:43)
--- NOTE | 2017-07-20 11:02 | PN ---
Progress Note - Progress Note Date of Service: 07/20/17 Note: Surgery (see dictated discharge summary) S: patient seen and examined; pckg changed. Abx discussed w/ Dr. Wilhelm. Also d/w Hospitalist. A/P: s/p Right colectomy for diverticular bleeding, complicated by prolonged ileus (requiring TPN and NG tube), then diarrhea, orthostatic hypotension, and wound infection. Currently doing well; home today; instructions reviewed. Office f/u Mon. 07/26.
[2017-07-20 11:52] VITALS: BP 110/56
--- NOTE | 2017-07-21 11:24 | DS ---
AMENDED REPORT NOW INCLULDES COSIGNER DESIGNATION - ESIGNED BEFORE ADJUSTMENT CC: Dr. Mary Ramirez at [facility].* DISCHARGE SUMMARY: DATE OF ADMISSION: 06/28/17 DATE OF DISCHARGE: 07/20/17 ATTENDING SURGEON: Dr. Preet Otero.* (DICTATED BY YAMILA BILLINGS) HOSPITAL COURSE: Please refer to admission history and physical and operative note for admission and surgical details. The patient was admitted on 06/28/17 with evidence of lower GI bleed. He received 3 units of packed red cells preoperatively and was taken to the operating room on 06/29/17 at which time he underwent a laparoscopic assisted right colectomy for diverticular bleed (see separate pathology report). The patient's postoperative course was marked by a prolonged ileus and he required placement of a PICC line and TPN. Once his ileus began to resolve, he was beset with multiple frequent loose stools. This was complicated by some orthostatic lightheadedness, in part related to his ongoing anemia. He did receive 1 unit postoperatively and then again yesterday. There has been no evidence of ongoing bleeding. His stool was sent for C. Diff, which was negative (he does have a past history of positive C. Diff colitis). Stool was also sent for culture, which grew out a Aeromonas species, which was sensitive to Bactrim. He had spontaneous drainage from his wound beginning on 07/17/17, this was opened further by Dr. Stinson on 07/18/17 and was packed. The culture thus far from the wound is no growth, but final is still pending. Per Dr. Wilhelm, it was recommended that he complete 10 days of Bactrim. As of the morning of discharge on physical exam temperature 98.2, blood pressure 112/53, pulse 62, respirations 18, room air saturation 96%. General: Well nourished, well developed, and in no acute distress. He appears comfortable. Heart: Regular rate and rhythm. Lungs: Clear to auscultation. Abdomen: Midline wound with open wound measuring approximately 4 x 3 cm with a depth of approximately 2.5 cm (with slight undermining in the 11 to 12 o'clock position). There is some thin cloudy yellow drainage. There is minimal tenderness to palpation. The wound packing was replaced (06/08 inch plain packing ). The other laparoscopic incision sites are healing well. Extremities: No edema. Consults during his admission included those from GI, Hospitalist Service, Infectious Disease and Physical Therapy (he was seen for possible short-term rehab consult, but did not meet criteria). DISCHARGE MEDICATIONS: Include Bactrim DS b.i.d. x10 days and ferrous sulfate 325 mg daily. He is not requiring any analgesics at present. He will undergo daily packing change with assistance by home nursing. His also observed the packing change today. He has a followup with our office on 07/26/17. He was also urged to contact his PCP office for medical followup within 3 to 4 weeks with repeat lab work at that time. YAMILA BILLINGS [id number]/[facility] #: [id number] MTDVikram
== END 2017-07-20 15:25 | disposition home health service (06) | DRG 330 ==
LOC: ED 06:36 → MED 10:11 → SSU 06-29 23:40
PROVIDERS: ADMIT Internal Medicine; ATTEND Surgery
PROC: 30233N1 Transfusion of Nonautologous Red Blood Cells into Peripheral Vein, Percutaneous Approach (ICD-10-PCS; 2017-06-28)
PROC: 0DTF0ZZ Resection of Right Large Intestine, Open Approach (ICD-10-PCS; 2017-06-29)
PROC: 0D9670Z Drainage of Stomach with Drainage Device, Via Natural or Artificial Opening (ICD-10-PCS; 2017-07-04)
PROC: 02HV33Z Insertion of Infusion Device into Superior Vena Cava, Percutaneous Approach (ICD-10-PCS; principal; 2017-07-06)
PROC: 3E0336Z Introduction of Nutritional Substance into Peripheral Vein, Percutaneous Approach (ICD-10-PCS; 2017-07-08)
DX: K57.31 Diverticulosis of large intestine without perforation or abscess with bleeding (principal); K56.7 Ileus, unspecified; D62 Acute posthemorrhagic anemia; B96.89 Other specified bacterial agents as the cause of diseases classified elsewhere; T81.30XA Disruption of wound, unspecified, initial encounter; T81.4XXA Infection following a procedure, initial encounter; M06.9 Rheumatoid arthritis, unspecified; I10 Essential (primary) hypertension; E78.5 Hyperlipidemia, unspecified; N40.0 Benign prostatic hyperplasia without lower urinary tract symptoms; H91.90 Unspecified hearing loss, unspecified ear; L11.1 Transient acantholytic dermatosis [Grover]; M19.90 Unspecified osteoarthritis, unspecified site; Z86.19 Personal history of other infectious and parasitic diseases; Z82.49 Family history of ischemic heart disease and other diseases of the circulatory system; Z83.3 Family history of diabetes mellitus; Z80.0 Family history of malignant neoplasm of digestive organs; Z72.89 Other problems related to lifestyle; Z80.1 Family history of malignant neoplasm of trachea, bronchus and lung; Z82.5 Family history of asthma and other chronic lower respiratory diseases; R55 Syncope and collapse; R09.02 Hypoxemia; G43.809 Other migraine, not intractable, without status migrainosus; R42 Dizziness and giddiness; R11.14 Bilious vomiting; R50.9 Fever, unspecified; D50.9 Iron deficiency anemia, unspecified; D72.829 Elevated white blood cell count, unspecified; J02.9 Acute pharyngitis, unspecified; Y83.8 Other surgical procedures as the cause of abnormal reaction of the patient, or of later complication, without mention of misadventure at the time of the procedure; Y92.239 Unspecified place in hospital as the place of occurrence of the external cause; R19.7 Diarrhea, unspecified; I95.1 Orthostatic hypotension
CPT/HCPCS: 36415; 71045; 71046; 74019; 74177; 78278; 80048; 80053; 81003; 82272; 82465; 82550; 82607; 82728; 83540; 83550; 83605; 83690; 83735; 83880; 83921; 84100; 84134; 84238; 84478; 85014; 85018; 85025; 85060; 85610; 85730; 86140; 86850; 86900; 86901; 86922; 87045; 87046; 87070; 87077; 87186; 87205; 87493; 88307; 93005; 94760; 99283; A9270-GY; A9512; A9538; C1776; J0330; J0610; J1100; J1335; J1644; J1756; J2250; J2270; J2405; J2704; J3010; J3475; J3480; J3490; P9016; P9040; Q9967

== ENCOUNTER 2017-11-23 06:04 | Observation (INO) | payer MEDICARE, BC ==
--- NOTE | 2017-11-11 07:20 | HP ---
CC: Dr. Mary Ramirez PREOPERATIVE HISTORY AND PHYSICAL: DATE OF ADMISSION/SURGERY: 11/23/17 This patient is scheduled for same-day surgery admission with possible overnight stay by Dr. Otero on 11/23/17. DATE OF PREOPERATIVE HISTORY AND PHYSICAL EXAMINATION: 11/10/17. ATTENDING SURGEON: Dr. Preet Otero.* (DICTATED BY ROSALINE CLEMENS NP) CHIEF COMPLAINT: Ventral incisional hernia. HISTORY OF PRESENT ILLNESS: The patient is a 77-year-old male known to Dr. Otero, status post emergent laparoscopic assisted right colectomy for diverticular bleed on 06/29/17. This was complicated by postoperative wound infection. He had returned back to full activities including weight training and scuba diving. He noticed the bulge in the midline incision above the umbilicus approximately 1 month ago. He denies any abdominal pain or changes in bowel movement. He denies any nausea or vomiting or fever or chills. He denies any dysuria. Dr. Otero examined the patient and noted a midline scar with ventral hernia above the umbilicus with a defect diameter approximately 8 cm laterally; the hernia is soft, reducible and nontender. Dr. Otero discussed the findings with the patient and has recommended laparoscopy/ laparotomy for repair of the ventral incisional hernia with mesh. Dr. Otero discussed the nature of the surgical procedure, the rationale for the surgery, the relevant risks and benefits, the possible overnight stay in the hospital and today, I reviewed the typical postoperative care and recovery. The patient has had a chance to ask questions and stated that he understands the information and is satisfied with the answers given to his questions. He will sign surgical consent on the day of surgery. PAST MEDICAL HISTORY: Significant for: 1. Lower GI bleed related to a diverticular bleed. 2. Rheumatoid arthritis. 3. History of C. diff. 4. Hypertension. 5. Hyperlipidemia. 4. Benign prostatic hypertrophy. 5. Hard of hearing. PAST SURGICAL HISTORY: Emergent laparoscopic assisted right colectomy for diverticular bleed on 06/29/[address] Otero; he has had arthroscopies to both knees and has had heart catheterization, but no stents. MEDICATIONS: 1. Iron 256 mg 1 tablet daily. 2. Tylenol 325 mg 2 tablets every 4 hours as needed. ALLERGIES: No known drug allergies. He may have had an unspecified reaction to hydroxychloroquine and is sensitive to adhesives. SOCIAL HISTORY: He is and his accompanies him to the visit and is his surrogate decision maker. He does not smoke and does not drink alcohol and exercises routinely. FAMILY HISTORY: Mother had COPD and probable lung cancer; father had a history of RI and colon cancer. No known anesthesia complications, bleeding tendencies , or clotting disorders. REVIEW OF SYSTEMS: Constitutional: No fevers, chills, excessive fatigue, or weight loss. Endocrine: No diabetes or thyroid disease. Hematologic: No easy bruising or bleeding; he is being treated for iron deficiency anemia and a recent CBC on 10/27/17 revealed hematocrit of 40, hemoglobin 13.6, and platelet count of 270,000. Respiratory: No dyspnea on exertion. No chronic cough. Cardiovascular: No anginal chest pain or palpitations. Gastrointestinal: As described in history of present illness. Genitourinary: No dysuria. Musculoskeletal: No back or joint pain. Integumentary: No chronic rashes or skin changes. Neurologic: No headache or blurred vision. He is hard of hearing and wears hearing aids. General: No previous anesthesia complications. No history of deep vein thrombosis or pulmonary embolism and he did receive packed red blood cells in June 2017 at the time of the lower GI bleed. PHYSICAL EXAMINATION GENERAL SURVEY: The patient is a 77-year-old male, well developed, well nourished, in no acute distress. VITAL SIGNS: Height 71 inches, weight 191 pounds, body mass index 26.6. Blood pressure 124/72, pulse 66 and regular, respiratory rate 16, temperature 98 tympanic. HEENT: Benign. NECK: Supple. No cervical lymphadenopathy. LUNGS: Breath sounds bilaterally clear and equal. HEART: Regular rate and rhythm. No murmurs or rubs appreciated. ABDOMEN: Active bowel sounds. Midline scar with ventral hernia above the umbilicus, defect diameter is approximately 8 cm laterally and is soft, reducible, and nontender. No other obvious masses or organomegaly. GENITALIA: Deferred. RECTAL: Deferred. EXTREMITIES: Warm without edema or skin ulceration. NEUROLOGIC: Alert and oriented x3. Steady gait. SKIN: Warm, dry, intact. IMPRESSION: Ventral incisional hernia. PLAN: Same-day surgery admission with possible overnight extension on 11/23/17 for laparoscopy/laparotomy for repair of ventral incisional hernia with mesh. ROSALINE CLEMENS, ANESTHESIOLOGY FACULTY [id number]/[facility] #: [id number] [facility]S HOSPITALVikram
[~2017-11-23 06:04] MED LIST: Buffered Lidocaine 0.9% SYRIN* 5 ML/SYR SYRINGE INTRADERM ONE; DiMENhydriNATE IV* 50 MG/ML VIAL IV PUSH PRN; Famotidine IV* 10 MG/ML 2 ML (20 mg) IV ONE; Naloxone* 0.4 MG/ML 1 ML VIAL IV PRN; Ondansetron INJ* 2 MG/ML VIAL ONE; PROCHLORPERAZINE INJ 5 MG/ML 2 ML VIAL IV PRN; oxyCODONE/Acetamin 5/325 MG* TAB PO PRN
[2017-11-23] MEDS ORDERED: Famotidine IV* 10 MG/ML 2 ML (20 mg) ONE (06:10)
[2017-11-23] MEDS ORDERED: Heparin VIAL(*) 5000 UNITS/ML VIAL (FIVE THOUSAND) ONE (06:10)
[2017-11-23] MEDS ORDERED: Ondansetron ODT TAB* 4 MG ONE (06:10)
[2017-11-23] MEDS ORDERED: Dexamethasone TAB* 4 MG ONE (06:11)
[2017-11-23] MEDS ORDERED: ceFAZolin 2 GM PREMIX (*) 2 GM/50 ML BAG IVPB ONE (06:11)
[2017-11-23] MEDS ORDERED: Buffered Lidocaine 0.9% SYRIN* 5 ML/SYR SYRINGE ONE (06:11)
[2017-11-23] MEDS: Dexamethasone TAB* 4 MG PO ONE (06:53)
[2017-11-23] MEDS ORDERED: fentaNYL* 50 MCG/ML 2 ML VIAL (100 MCG VIAL) ONE ×2 (07:00→09:55)
[2017-11-23] MEDS ORDERED: Midazolam* 1 MG/ML 5 ML VIAL (5 MG) ONE (07:00)
[2017-11-23] MEDS ORDERED: Atracurium* 10 MG/ML 10 ML VIAL ONE (07:00)
[2017-11-23] MEDS ORDERED: KETAMINE HCL* 50 MG/ML 10 ML VIAL ONE (07:38)
[2017-11-23] MEDS ORDERED: Bupivacaine 0.5% SDV PF* 30ML VIAL ONE (07:56)
[2017-11-23] MEDS ORDERED: Morphine INJ* 10 MG/ML 1 ML CARPUJECT ONE (08:06)
[2017-11-23] MEDS ORDERED: Glycopyrrolate IV* 0.2 MG/ML 1 ML VIAL ONE (08:30)
[2017-11-23] MEDS ORDERED: Neostigmine Methylsulfate* 1 MG/ML 10 ML VIAL (1 mg/ml) ONE (08:30)
[2017-11-23] MEDS ORDERED: Propofol* 10 MG/ML 20 ML BTL IV PUSH ONE (08:30)
[2017-11-23] MEDS ORDERED: Lidocaine 2% PF * 5 ML VIAL ONE (08:31)
[2017-11-23] MEDS ORDERED: Labetalol IV* 5 MG/ML 20 ML VIAL ONE (08:32)
[2017-11-23] MEDS ORDERED: hydrALAZINE IV* 20 MG/ML VIAL ONE (08:38)
--- NOTE | 2017-11-23 09:55 | OP ---
Operative Report - Blank - Operative Report Date of Operation: 11/23/17 Note: Brief Operative Note Preop Dx: Ventral incisional hernia Postop Dx: same Procedure: Open and laparoscopic repair ventral hernia with mesh Anesthesia: TEENA Surgeon: Branden Nitroglycerin Nitrator Operator Batch: YAMILA Diaz Fluids: 1500 ml EBL: < 50 ml Specimen: none Drains: none Findings: dictated
[2017-11-23] MEDS: fentaNYL* 50 MCG/ML 2 ML VIAL (100 MCG VIAL) IV PRN ×3 (09:57→10:17)
[2017-11-23] MEDS ORDERED: Cetirizine* 10 MG TAB PO PRN (09:58)
[2017-11-23] MEDS ORDERED: Ketorolac INJ* 15 MG/ML 1 ML VIAL IV PUSH PRN (09:59)
[2017-11-23] MEDS ORDERED: Morphine PCA ADULT* 5 MG/ML 30 ML PCA SCH (10:00)
[2017-11-23] MEDS ORDERED: Ondansetron ODT TAB* 4 MG SL PRN (10:02)
[2017-11-23] MEDS ORDERED: Morphine VIAL* 10 MG/ML 1 ML VIAL ONE (10:30)
[2017-11-23] MEDS: Morphine INJ* 2 MG/ML 1 ML CARPUJECT IV PRN ×2 (10:32→10:50)
[2017-11-23] MEDS ORDERED: Morphine PCA ADULT* 5 MG/ML 30 ML ONE (11:34)
[2017-11-23] MEDS: Heparin VIAL(*) 5000 UNITS/ML VIAL (FIVE THOUSAND) SUBCUT SCH ×2 (14:12→21:46)
[2017-11-23] MEDS ORDERED: oxyCODONE TAB* 5 MG TAB PO PRN (16:03)
[2017-11-23] MEDS: oxyCODONE TAB* 5 MG TAB PO PRN ×2 (17:46→23:46)
[2017-11-23] MEDS: Acetaminophen TAB* 325 MG PO PRN (19:37)
--- NOTE | 2017-11-24 03:22 | OP ---
CC: Dr. Mary Ramirez * DATE OF OPERATION: 11/23/17 - ROOM #33 DATE OF : 40 SURGEON: Preet Otero MD OCEANOLOGY TEACHER: YAMILA Leyva. ANESTHESIOLOGIST: Dr. Arnold. ANESTHESIA: General endotracheal. PRE-OP DIAGNOSIS: Ventral incisional hernia. POST-OP DIAGNOSIS: Ventral incisional hernia. OPERATIVE PROCEDURE: Laparotomy combined with laparoscopic ventral incisional hernia repair with mesh. ESTIMATED BLOOD LOSS: Less than 50 mL. IV FLUIDS: Crystalloids. SPECIMEN: None. DRAINS: None. COMPLICATIONS: None. COUNTS: Instrument, needle, sponge counts were correct. DESCRIPTION OF PROCEDURE: The patient was brought to the operating room and placed on the table supine. Sequential compression devices were placed in both lower extremities, and general anesthesia was administered. Jeronimo catheter was placed. He received appropriate intravenous antibiotics. He was prepped and draped in the usual sterile fashion, and time-out was performed. Local anesthetic was infiltrated into the skin and soft tissue prior to making each incision. The prior upper midline scar was excised. Subcutaneous tissues were divided with cautery. Hernia sac was entered and there were no adhesions to small bowel within this. The hernia sac was excised and fascial edges were identified circumferentially and cleaned back for 1 cm. The incision was made to perform the primary closure and then reinforced with laparoscopically placed mesh. The round ligament of the liver was divided and ligated with 2-0 Vicryl tie. The falciform was then taken down with cautery. The fascia was brought to the midline close with interrupted [id number] #1 Prolene suture. Prior to tying these down, a 6 x 8 inch piece of Bard Ventralight ST mesh with Echo positioning system was placed into the abdominal cavity. Subsequently, the midline was closed and then 5-mm port placed between the suture was used to insufflate the abdomen and additional 5 mm trocars were placed one in the left mid abdomen laterally, one in the right mid abdomen laterally, and one in the lower suprapubic region. Angled 30-degree 5-mm laparoscope was used. The positioning system was utilized bringing up the insufflation through the midline and then insufflating this and drawing the mesh up in proper position to cover the midline closure. The mesh was secured circumferentially using a double-crown technique with CapSure tacker tacking at 1 cm intervals around the periphery and then the additional tacks placed within the inner portions of the mesh decreasing the space. The Echo positioning system was removed without difficulty prior to placing the inner tacks. Hemostasis was assured. The ports were removed under direct visualization and the carbon dioxide was released. The midline wound was closed in 2 layers with 3-0 Vicryl to approximate subcutaneous tissue and decrease the space and dinah were used for the skin at all incisions. Dressings were applied. The patient tolerated the procedure well. He was extubated and transferred to recovery room in stable condition. [id number]/[facility] #: [id number] MTDD
[2017-11-24] MEDS: Heparin VIAL(*) 5000 UNITS/ML VIAL (FIVE THOUSAND) SUBCUT SCH (06:26)
[2017-11-24] MEDS: Acetaminophen TAB* 325 MG PO PRN ×2 (06:26→10:33)
--- NOTE | 2017-11-24 10:25 | PN ---
Progress Note - Progress Note Date of Service: 11/24/17 SOAP: Subjective:POD#1 s/p open and lap ventral hernia repair with mesh;not using [employer]; walking;ton reg diet [] Objective:afeb;VSS;lungs:few rhonchi bilat bases,clear with cough;heart:RRR;abd +bs;soft;incisions with dressings intact;ext:nontender calves,no edema [] Assessment:stable,wants to go home [] Plan:discharge home today,instructions reviewed,OV 7-10 days []
[2017-11-24 11:59] VITALS: BP 119/63
--- NOTE | 2017-11-25 04:58 | DS ---
CC: Dr. Mary Ramirez * DISCHARGE SUMMARY: DATE OF ADMISSION: 11/23/17 DATE OF DISCHARGE: 11/24/17 ATTENDING SURGEON: Preet Otero MD * (DICTATED BY ROSALINE CLEMENS NP) HOSPITAL COURSE: Please refer to admission history and physical for admission details. The patient was taken to the operating room on 11/23/17, and underwent laparotomy combined with laparoscopic ventral incisional hernia repair with mesh by Dr. Otero. He had an uneventful postoperative course and required minimal pain medication and was able to meet the criteria for discharge. He was ambulating in the halls and using his Inspiron; he was tolerating a regular diet. PHYSICAL EXAMINATION: General: Well appearing, in no acute distress. Vital signs are stable. The patient is afebrile. O2 saturation on room air is 96%. Lungs: A few mild rhonchi at both bases that clear with coughing, otherwise mid and upper lung young are clear. Heart: Regular rate and rhythm. No murmurs or rubs are appreciated. Abdomen: Active bowel sounds, soft. All of the incisions are covered with dressings, which are clean and dry. There is no surrounding erythema. Extremities: Nontender calves, no edema. IMPRESSION: Postop day 1 status post laparotomy combined with laparoscopic ventral incisional hernia repair with mesh, doing extremely well. PLAN: Discharge home today; instructions were reviewed with the patient and his ; he will wear his abdominal binder whenever he is up and he will take his Inspiron home with him for ongoing pulmonary toilet. He has hydrocodone/ acetaminophen at home for postoperative discomfort and he knows he may also use [id number] ibuprofen for mild pain. He will have an office visit in 7 to 10 days postop. He knows he can call our office with any concerns in the meantime. ROSALINE CLEMENS NP [id number]/[facility] #: [id number] MTDD
== END 2017-11-24 13:20 | disposition home or self-care (01) ==
LOC: OR 06:04 → INTOOBSV 11:48 → SSU 11:48
PROVIDERS: ADMIT Surgery; ATTEND Surgery
PROC: 0WUF4JZ Supplement Abdominal Wall with Synthetic Substitute, Percutaneous Endoscopic Approach (ICD-10-PCS; principal; 2017-11-23 07:30)
DX: K43.2 Incisional hernia without obstruction or gangrene (principal); M06.9 Rheumatoid arthritis, unspecified; I10 Essential (primary) hypertension; E78.5 Hyperlipidemia, unspecified; N40.0 Benign prostatic hyperplasia without lower urinary tract symptoms; Z79.899 Other long term (current) drug therapy
CPT/HCPCS: 96372; 96374; 96375; 96376; A9270-GY; C1781; G0378; J0360; J0690; J1644; J1885; J2250; J2270; J2704; J2710; J3010; J8540